=== PATIENT | female | born 2000 | race Caucasian/White ===

== ENCOUNTER 2019-01-15 04:29 | Inpatient (IN) ==
[2019-01-15] MEDS ORDERED: 0.9 % Sodium Chloride 1,000 ML ONE (04:44)
[2019-01-15] MEDS ORDERED: Ondansetron 4 MG/2 ML VIAL IVP ONE (04:45)
[2019-01-15] MEDS: 0.9 % Sodium Chloride 1,000 ML IVC SCH ×2 (04:47→05:25)
[2019-01-15 05:17] LABS: VBG HCO3 6 mEq/L (21-27); VBG PCO2 21 mmHg (41-51); VBG PH 7.06 pH Units (7.32-7.42); VBG PO2 58 mmHg (25-50)
[2019-01-15] MEDS ORDERED: 0.9 % Sodium Chloride 1,000 ML IVC ONE (05:48)
[2019-01-15 05:57] LABS: Alanine Aminotransferase 8 Units/L (7-52); Albumin 4.5 g/dL (3.5-5.7); Albumin/Globulin Ratio 1.4 (1.1-2.2); Alkaline Phosphatase 105 Units/L (34-104); Aspartate Amino Transferase 8 Units/L (13-39); BUN/Creatinine Ratio 15 (6-26); Bilirubin,Total 0.3 mg/dL (0.3-1.0); Blood Urea Nitrogen 14 mg/dL (6-20); Calcium 8.8 mg/dL (8.6-10.3); Carbon Dioxide 7 mEq/L (23-29); Chloride 103 mEq/L (98-107); Globulin 3.2 g/dL (2.4-3.5); Glucose 189 mg/dL (70-105); Osmolality,Calculated 284 (280-300); Potassium 3.2 mEq/L (3.5-5.1); Sodium 134 mEq/L (136-145); Total Protein 7.7 g/dL (6.4-8.9); Troponin I < 0.03 ng/mL (< 0.04); eGFR For African Americans > 60; eGFR For Non-African Americans > 60
[2019-01-15] MEDS ORDERED: Potassium Chloride 20 MEQ, Lidocaine 1% 2 ML in 0.9 % Sodium Chloride 250 ML IVPB ONE ×2 (06:04→07:53)
[2019-01-15 06:05] LABS: Basophils # 0.1 K/mcL (0.0-0.2); Basophils % 0.5 %; Hematocrit 39.5 % (35.3-44.9); Immature Granulocytes % 1.7 % (0-4); Lymphocytes # 1.4 K/mcL (0.6-4.6); Lymphocytes % 8.8 %; Mean Corpuscular HGB Conc 32.9 g/dL (31.6-35.5); Mean Corpuscular Volume 91.2 fL (83.0-100.0); Mean Platelet Volume 10.9 fL (9.4-12.4); Monocytes # 1.4 K/mcL (0.0-1.3); Monocytes % 8.7 %; Platelet Count 379 K/mcL (140-400); Red Blood Count 4.33 M/mcL (3.82-4.97); Red Cell Distribution Width 13.1 % (11.5-14.5); Segmented Neutrophils % 80.3 %; White Blood Count 16.2 K/mcL (4.3-11.1)
[2019-01-15 06:11] LABS: Thyroid Stimulating Hormone 0.416 mcIU/mL (0.340-5.600)
[2019-01-15 06:41] LABS: Bilirubin,Urine Negative (Negative); Blood,Urine Small (Negative); Clarity,Urine Clear (Clear); Color,Urine Yellow (Yellow); Glucose,Urine (UA) >=1000 mg/dL (Normal); Ketones,Urine >=160 mg/dL (Negative); Leukocyte Esterase,Urine Negative (Negative); Nitrite,Urine Negative (Negative); Protein,Urine 100 mg/dL (Neg-Trace); Specific Gravity,Urine 1.029 (1.010-1.025); Urobilinogen,Urine Normal (Normal)
[2019-01-15 06:44] LABS: Bacteria,Urine Few per hpf (None-Few); Hyaline Casts,Urine None Seen per lpf (None-Few); RBC,Urine 0-3 per hpf (0-3); Squamous Epithelial Cell,Urine Many per lpf (None-Few); WBC,Urine 15-30 per hpf (0-3)
[2019-01-15 06:47] LABS: Amphetamine Screen,Urine Negative ng/mL (Cutoff=1000); Barbiturate Screen,Urine Negative ng/mL (Cutoff=200); Benzodiazepines Screen,Urine Negative ng/mL (Cutoff=300)
[2019-01-15] MEDS ORDERED: Isovue-370 500 ML BOTTLE IVP ONE (06:47)
[2019-01-15 06:48] LABS: Cannabinoid Screen,Urine Negative ng/mL (Cutoff = 50); Cocaine Screen,Urine Negative ng/mL (Cutoff= 300); Opiate Screen,Urine Negative ng/mL (Cutoff=300); Phencyclidine Screen,Urine Negative ng/mL (Cutoff=25)
[2019-01-15] MEDS ORDERED: Piperacillin/Tazobactam 3.375 GM in 0.9 % Sodium Chloride Mini Bag 100 ML IVPB ONE (08:18)
[2019-01-15] MEDS: 0.9 % Sodium Chloride w KCl 20 MEQ/1,000 ML MLS IVC SCH ×2 (09:51→19:31)
[2019-01-15] MEDS ORDERED: *HR* Dextrose 50 % in Water (Syg) 50 ML SYRINGE IVP PRN ×3 (10:05→17:41)
[2019-01-15] MEDS ORDERED: Insulin Human Regular 100 UNIT in 0.9 % Sodium Chloride 100 ML IVC SCH (10:15)
[2019-01-15] MEDS ORDERED: Insulin Regular, Human 100 UNIT/ML IV PRN (10:32)
[2019-01-15] MEDS: D5% in 0.9% NACL w KCl 20 MEQ/1,000 ML MLS IVC SCH ×2 (10:45→19:31)
[2019-01-15 11:17] LABS: BUN/Creatinine Ratio 13 (6-26); Blood Urea Nitrogen 10 mg/dL (6-20); Calcium 8.2 mg/dL (8.6-10.3); Carbon Dioxide 13 mEq/L (23-29); Chloride 112 mEq/L (98-107); Glucose 193 mg/dL (70-105); Osmolality,Calculated 280 (280-300); Potassium 3.4 mEq/L (3.5-5.1); Sodium 133 mEq/L (136-145); eGFR For African Americans > 60; eGFR For Non-African Americans > 60
[2019-01-15 11:57] LABS: Estimated Average Glucose 292 mg/dl
[2019-01-15 15:05] LABS: VBG HCO3 15 mEq/L (21-27); VBG Ionized Calcium 1.21 mmol/L (1.15-1.35); VBG PCO2 32 mmHg (41-51); VBG PH 7.29 pH Units (7.32-7.42); VBG PO2 192 mmHg (25-50)
[2019-01-15 15:25] LABS: BUN/Creatinine Ratio 11 (6-26); Blood Urea Nitrogen 8 mg/dL (6-20); Calcium 8.5 mg/dL (8.6-10.3); Carbon Dioxide 15 mEq/L (23-29); Chloride 112 mEq/L (98-107); Glucose 154 mg/dL (70-105); Osmolality,Calculated 281 (280-300); Potassium 3.3 mEq/L (3.5-5.1); Sodium 135 mEq/L (136-145); eGFR For African Americans > 60; eGFR For Non-African Americans > 60
[2019-01-15] MEDS: D5% in 0.45% NACL w KCl 20 MEQ/1,000 ML MLS IVC SCH ×2 (16:29→23:16)
[2019-01-15] MEDS: Pantoprazole 40 MG VIAL IVP SCH (16:29)
[2019-01-15] MEDS ORDERED: Dextrose Gel 15 GM/37.5 ML TUBE PO PRN (17:41)
[2019-01-15] MEDS ORDERED: D5% in Water 1,000 ML IVC PRN (17:41)
[2019-01-15 19:10] LABS: BUN/Creatinine Ratio 12 (6-26); Blood Urea Nitrogen 8 mg/dL (6-20); Calcium 8.6 mg/dL (8.6-10.3); Carbon Dioxide 15 mEq/L (23-29); Chloride 110 mEq/L (98-107); Glucose 197 mg/dL (70-105); Osmolality,Calculated 284 (280-300); Potassium 3.7 mEq/L (3.5-5.1); Sodium 135 mEq/L (136-145); eGFR For African Americans > 60; eGFR For Non-African Americans > 60
[2019-01-15] MEDS: Insulin LISPRO 300 UNITS/3 ML VIAL SQ SCH (20:47)
[2019-01-15] MEDS ORDERED: Insulin DETEMIR 100 UNIT/ML X5UNITS SQ SCH (21:00)
[2019-01-15 23:17] LABS: BUN/Creatinine Ratio 12 (6-26); Blood Urea Nitrogen 8 mg/dL (6-20); Calcium 8.9 mg/dL (8.6-10.3); Carbon Dioxide 13 mEq/L (23-29); Chloride 113 mEq/L (98-107); Glucose 150 mg/dL (70-105); Osmolality,Calculated 281 (280-300); Potassium 3.5 mEq/L (3.5-5.1); Sodium 135 mEq/L (136-145); eGFR For African Americans > 60; eGFR For Non-African Americans > 60
[2019-01-16] MEDS: D5% in 0.45% NACL w KCl 20 MEQ/1,000 ML MLS IVC SCH (03:25)
[2019-01-16] MEDS: D5% in 0.9% NACL w KCl 20 MEQ/1,000 ML MLS IVC SCH (03:25)
[2019-01-16] MEDS: 0.9 % Sodium Chloride w KCl 20 MEQ/1,000 ML MLS IVC SCH (03:25)
[2019-01-16 05:19] LABS: Basophils # 0.1 K/mcL (0.0-0.2); Basophils % 0.6 %; Eosinophils # 0.2 K/mcL (0.0-0.6); Eosinophils % 2.3 %; Hematocrit 34.9 % (35.3-44.9); Hemoglobin 11.8 g/dL (11.5-15.4); Immature Granulocytes % 0.9 % (0-4); Lymphocytes # 2.7 K/mcL (0.6-4.6); Lymphocytes % 26.4 %; Mean Corpuscular HGB Conc 33.8 g/dL (31.6-35.5); Mean Corpuscular Hemoglobin 29.9 pg (28.0-33.3); Mean Corpuscular Volume 88.6 fL (83.0-100.0); Mean Platelet Volume 10.2 fL (9.4-12.4); Monocytes % 10.1 %; Neutrophils # 6.1 K/mcL (1.6-8.9); Platelet Count 355 K/mcL (140-400); Red Blood Count 3.94 M/mcL (3.82-4.97); Red Cell Distribution Width 13.6 % (11.5-14.5); Segmented Neutrophils % 59.7 %; White Blood Count 10.2 K/mcL (4.3-11.1)
[2019-01-16 05:38] LABS: BUN/Creatinine Ratio 11 (6-26); Blood Urea Nitrogen 7 mg/dL (6-20); Calcium 8.7 mg/dL (8.6-10.3); Carbon Dioxide 18 mEq/L (23-29); Chloride 108 mEq/L (98-107); Glucose 145 mg/dL (70-105); Osmolality,Calculated 287 (280-300); Potassium 3.1 mEq/L (3.5-5.1); Sodium 138 mEq/L (136-145); eGFR For African Americans > 60; eGFR For Non-African Americans > 60
[2019-01-16] MEDS: Insulin LISPRO 300 UNITS/3 ML VIAL SQ SCH ×3 (07:34→21:28)
[2019-01-16] MEDS ORDERED: Insulin DETEMIR 100 UNIT/ML X5UNITS SQ ONE (09:51)
[2019-01-16] MEDS: Pantoprazole 40 MG VIAL IVP SCH (09:57)
[2019-01-16] MEDS ORDERED: Dextrose Gel 15 GM/37.5 ML TUBE PO PRN ×4 (11:02→13:15)
[2019-01-16] MEDS ORDERED: *HR* Dextrose 50 % in Water (Syg) 50 ML SYRINGE IVP PRN ×2 (11:02→13:15)
[2019-01-16] MEDS ORDERED: D5% in Water 1,000 ML IVC PRN ×2 (11:02→13:15)
[2019-01-16] MEDS ORDERED: Insulin LISPRO 300 UNITS/3 ML VIAL SQ SCH ×2 (11:30→21:00)
[2019-01-16] MEDS ORDERED: Insulin DETEMIR 100 UNIT/ML X5UNITS SQ SCH ×2 (21:00)
[2019-01-17] MEDS: Insulin LISPRO 300 UNITS/3 ML VIAL SQ SCH ×4 (09:00→20:28)
[2019-01-17 10:47] LABS: BUN/Creatinine Ratio 12 (6-26); Blood Urea Nitrogen 10 mg/dL (6-20); Calcium 8.9 mg/dL (8.6-10.3); Carbon Dioxide 22 mEq/L (23-29); Chloride 105 mEq/L (98-107); Glucose 323 mg/dL (70-105); Osmolality,Calculated 294 (280-300); Potassium 3.4 mEq/L (3.5-5.1); Sodium 136 mEq/L (136-145); eGFR For African Americans > 60; eGFR For Non-African Americans > 60
[2019-01-17] MEDS ORDERED: 0.9 % Sodium Chloride 1,000 ML IVC ONE (11:05)
[2019-01-17] MEDS ORDERED: 0.9 % Sodium Chloride 500 ML IVC ONE (15:18)
[2019-01-17] MEDS ORDERED: *HR* Metoprolol 5 MG/5 ML VIAL IVP ONE (16:45)
[2019-01-17] MEDS ORDERED: Insulin DETEMIR 100 UNIT/ML X5UNITS SQ SCH ×2 (21:00)
[2019-01-18 06:58] LABS: BUN/Creatinine Ratio 18 (6-26); Blood Urea Nitrogen 9 mg/dL (6-20); Calcium 8.7 mg/dL (8.6-10.3); Carbon Dioxide 28 mEq/L (23-29); Chloride 106 mEq/L (98-107); Glucose 134 mg/dL (70-105); Magnesium 1.9 mg/dL (1.6-2.6); Osmolality,Calculated 293 (280-300); Potassium 3.1 mEq/L (3.5-5.1); Sodium 141 mEq/L (136-145); eGFR For African Americans > 60; eGFR For Non-African Americans > 60
[2019-01-18] MEDS: Insulin LISPRO 300 UNITS/3 ML VIAL SQ SCH ×2 (07:21→12:28)
[2019-01-18 11:00] VITALS: BP 133/77
[2019-01-18] MEDS ORDERED: FLU Vac QV 19-20 (6Month+)/PF 0.5 ML SYRINGE IM ONE (11:40)
== END 2019-01-18 12:40 | disposition home or self-care (01) | DRG 638 ==
LOC: EMEROOARM 04:29 → SUATTDRO 13:18 → ICNU 13:18 → 3ANU 01-16 13:07
PROVIDERS: ADMIT Internal Medicine; ATTEND Student in an Organized Health Care Education/Training Program

== ENCOUNTER 2019-03-17 08:28 | Inpatient (IN) ==
[2019-03-17] MEDS ORDERED: Insulin Human Regular 10 UNIT in 0.9 % Sodium Chloride 10 ML IV ONE (08:49)
[2019-03-17] MEDS: 0.9 % Sodium Chloride 1,000 ML IVC SCH ×4 (09:15→19:18)
[2019-03-17 09:35] LABS: Bilirubin,Urine Negative (Negative); Blood,Urine Moderate (Negative); Clarity,Urine Clear (Clear); Color,Urine Yellow (Yellow); Glucose,Urine (UA) >=1000 mg/dL (Normal); Ketones,Urine >=160 mg/dL (Negative); Leukocyte Esterase,Urine Negative (Negative); Nitrite,Urine Negative (Negative); Protein,Urine 30 mg/dL (Neg-Trace); Specific Gravity,Urine 1.027 (1.010-1.025); Urobilinogen,Urine Normal (Normal)
[2019-03-17 09:37] LABS: Bacteria,Urine Few per hpf (None-Few); Hyaline Casts,Urine None Seen per lpf (None-Few); RBC,Urine 0-3 per hpf (0-3); Squamous Epithelial Cell,Urine Many per lpf (None-Few)
[2019-03-17 09:39] LABS: Hemoglobin 13.4 g/dL (11.5-15.4); Mean Corpuscular HGB Conc 30.5 g/dL (31.6-35.5); Mean Corpuscular Hemoglobin 30.7 pg (28.0-33.3); Mean Corpuscular Volume 100.7 fL (83.0-100.0); Mean Platelet Volume 10.3 fL (9.4-12.4); Platelet Count 613 K/mcL (140-400); Red Blood Count 4.37 M/mcL (3.82-4.97); Red Cell Distribution Width 11.7 % (11.5-14.5); White Blood Count 26.8 K/mcL (4.3-11.1)
[2019-03-17 09:43] LABS: INR 1.1; Prothrombin Time 12.2 Seconds (9.4-12.1)
[2019-03-17 09:46] LABS: Activated Partial Thrombo Time 34.3 Seconds (26.0-36.0)
[2019-03-17 09:58] LABS: Lymphocytes # 2.1 K/mcL (0.6-4.6); Monocytes # 0.5 K/mcL (0.0-1.3); Neutrophils # 24.1 K/mcL (1.6-8.9)
[2019-03-17 09:59] LABS: Platelet Estimate Increased (Normal)
[2019-03-17 10:01] LABS: Alanine Aminotransferase 12 Units/L (7-52); Albumin 4.7 g/dL (3.5-5.7); Albumin/Globulin Ratio 1.5 (1.1-2.2); Alkaline Phosphatase 114 Units/L (34-104); Aspartate Amino Transferase 9 Units/L (13-39); BUN/Creatinine Ratio 15 (6-26); Bilirubin,Total 0.2 mg/dL (0.3-1.0); Blood Urea Nitrogen 14 mg/dL (6-20); Carbon Dioxide 4 mEq/L (23-29); Chloride 106 mEq/L (98-107); Globulin 3.2 g/dL (2.4-3.5); Glucose 524 mg/dL (70-105); Lipase 12 Units/L (11-82); Osmolality,Calculated 310 (280-300); Potassium 4.9 mEq/L (3.5-5.1); Salicylate < 2.5 mg/dL (15.0-30.0); Sodium 138 mEq/L (136-145); Total Protein 7.9 g/dL (6.4-8.9); eGFR For African Americans > 60; eGFR For Non-African Americans > 60
[2019-03-17] MEDS ORDERED: *HR* Dextrose 50 % in Water (Syg) 50 ML SYRINGE IVP PRN ×2 (10:08→11:11)
[2019-03-17] MEDS ORDERED: 0.9 % Sodium Chloride 1,000 ML IVC SCH (10:15)
[2019-03-17] MEDS: Insulin Human Regular 100 UNIT in 0.9 % Sodium Chloride 100 ML IVC SCH ×2 (10:41→19:30)
[2019-03-17 10:51] LABS: ABG PCO2 < 13 mmHg (35-45); ABG PH 6.93 pH Units (7.32-7.45); ABG PO2 147 mmHg (85-104)
[2019-03-17] MEDS ORDERED: Naloxone 0.4 MG/ML INJ IVP PRN (11:11)
[2019-03-17] MEDS ORDERED: Insulin Regular, Human 100 UNIT/ML IV PRN (11:11)
[2019-03-17] MEDS ORDERED: Acetaminophen 650 MG RECTAL SUPP RC PRN (11:11)
[2019-03-17] MEDS ORDERED: Ondansetron 4 MG/2 ML VIAL IVP PRN (11:11)
[2019-03-17] MEDS ORDERED: D5% in 0.45% NACL w KCl 20 MEQ/1,000 ML MLS IVC PRN (11:11)
[2019-03-17] MEDS: 0.45 % Sodium Chloride w/KCl 20 MEQ/1,000 ML MLS IVC SCH ×5 (12:43→23:06)
[2019-03-17 12:54] LABS: VBG HCO3 5 mEq/L (21-27); VBG PCO2 18 mmHg (41-51); VBG PH 7.08 pH Units (7.32-7.42); VBG PO2 208 mmHg (25-50)
[2019-03-17 13:27] LABS: Alanine Aminotransferase 11 Units/L (7-52); Albumin 4.4 g/dL (3.5-5.7); Albumin/Globulin Ratio 1.5 (1.1-2.2); Alkaline Phosphatase 99 Units/L (34-104); Aspartate Amino Transferase 11 Units/L (13-39); BUN/Creatinine Ratio 13 (6-26); Bilirubin,Total 0.2 mg/dL (0.3-1.0); Blood Urea Nitrogen 11 mg/dL (6-20); Calcium 8.6 mg/dL (8.6-10.3); Carbon Dioxide 5 mEq/L (23-29); Chloride 114 mEq/L (98-107); Glucose 216 mg/dL (70-105); Magnesium 1.9 mg/dL (1.6-2.6); Osmolality,Calculated 304 (280-300); Phosphorous 1.7 mg/dL (2.7-4.5); Potassium 4.1 mEq/L (3.5-5.1); Sodium 144 mEq/L (136-145); Total Protein 7.4 g/dL (6.4-8.9); eGFR For African Americans > 60; eGFR For Non-African Americans > 60
[2019-03-17] MEDS ORDERED: Insulin Human Regular 100 UNIT in 0.9 % Sodium Chloride 100 ML IVC SCH (13:30)
[2019-03-17 15:07] LABS: Amphetamine Screen,Urine Negative ng/mL (Cutoff=1000); Barbiturate Screen,Urine Negative ng/mL (Cutoff=200); Benzodiazepines Screen,Urine Negative ng/mL (Cutoff=200); Cannabinoid Screen,Urine Negative ng/mL (Cutoff = 50); Cocaine Screen,Urine Negative ng/mL (Cutoff= 300); Opiate Screen,Urine Negative ng/mL (Cutoff=300); Phencyclidine Screen,Urine Negative ng/mL (Cutoff=25)
[2019-03-17 15:58] LABS: Thyroid Stimulating Hormone 0.144 mcIU/mL (0.340-5.600)
[2019-03-17 17:04] LABS: Alanine Aminotransferase 9 Units/L (7-52); Albumin/Globulin Ratio 1.4 (1.1-2.2); Alkaline Phosphatase 83 Units/L (34-104); Aspartate Amino Transferase 14 Units/L (13-39); BUN/Creatinine Ratio 13 (6-26); Bilirubin,Total 0.3 mg/dL (0.3-1.0); Blood Urea Nitrogen 10 mg/dL (6-20); Calcium 9.3 mg/dL (8.6-10.3); Carbon Dioxide 8 mEq/L (23-29); Chloride 121 mEq/L (98-107); Globulin 2.8 g/dL (2.4-3.5); Glucose 198 mg/dL (70-105); Magnesium 1.8 mg/dL (1.6-2.6); Osmolality,Calculated 297 (280-300); Phosphorous 1.6 mg/dL (2.7-4.5); Potassium 4.2 mEq/L (3.5-5.1); Sodium 141 mEq/L (136-145); Total Protein 6.8 g/dL (6.4-8.9); eGFR For African Americans > 60; eGFR For Non-African Americans > 60
[2019-03-17] MEDS: Famotidine 20 MG/2 ML VIAL IVP SCH (17:33)
[2019-03-17] MEDS: Potassium Chloride 20 MEQ in D5% in Lactated Ringers 1,000 ML IVC SCH ×2 (18:04→23:04)
[2019-03-17 21:36] LABS: Alanine Aminotransferase 8 Units/L (7-52); Albumin 3.8 g/dL (3.5-5.7); Albumin/Globulin Ratio 1.5 (1.1-2.2); Alkaline Phosphatase 81 Units/L (34-104); Aspartate Amino Transferase 7 Units/L (13-39); BUN/Creatinine Ratio 11 (6-26); Bilirubin,Total 0.3 mg/dL (0.3-1.0); Blood Urea Nitrogen 8 mg/dL (6-20); Calcium 8.6 mg/dL (8.6-10.3); Carbon Dioxide 13 mEq/L (23-29); Chloride 119 mEq/L (98-107); Globulin 2.5 g/dL (2.4-3.5); Glucose 101 mg/dL (70-105); Osmolality,Calculated 294 (280-300); Phosphorous < 1.0 mg/dL (2.7-4.5); Potassium 3.1 mEq/L (3.5-5.1); Sodium 143 mEq/L (136-145); Total Protein 6.3 g/dL (6.4-8.9); eGFR For African Americans > 60; eGFR For Non-African Americans > 60
[2019-03-17] MEDS: *HR* Heparin 5,000 UNIT/ML VIAL SQ SCH (23:04)
[2019-03-18] MEDS: 0.45 % Sodium Chloride w/KCl 20 MEQ/1,000 ML MLS IVC SCH ×6 (01:27→16:38)
[2019-03-18 02:14] LABS: Alanine Aminotransferase 8 Units/L (7-52); Albumin 3.5 g/dL (3.5-5.7); Albumin/Globulin Ratio 1.4 (1.1-2.2); Alkaline Phosphatase 72 Units/L (34-104); Aspartate Amino Transferase 8 Units/L (13-39); BUN/Creatinine Ratio 9 (6-26); Bilirubin,Total 0.3 mg/dL (0.3-1.0); Blood Urea Nitrogen 7 mg/dL (6-20); Calcium 8.7 mg/dL (8.6-10.3); Carbon Dioxide 12 mEq/L (23-29); Chloride 118 mEq/L (98-107); Globulin 2.5 g/dL (2.4-3.5); Glucose 176 mg/dL (70-105); Magnesium 1.7 mg/dL (1.6-2.6); Osmolality,Calculated 290 (280-300); Phosphorous 2.5 mg/dL (2.7-4.5); Potassium 3.5 mEq/L (3.5-5.1); Sodium 139 mEq/L (136-145); eGFR For African Americans > 60; eGFR For Non-African Americans > 60
[2019-03-18] MEDS: Potassium Chloride 20 MEQ in D5% in Lactated Ringers 1,000 ML IVC SCH ×3 (03:56→13:54)
[2019-03-18] MEDS: *HR* Heparin 5,000 UNIT/ML VIAL SQ SCH ×3 (05:06→20:12)
[2019-03-18] MEDS: Famotidine 20 MG/2 ML VIAL IVP SCH (05:06)
[2019-03-18 05:19] LABS: VBG HCO3 16 mEq/L (21-27); VBG PCO2 33 mmHg (41-51); VBG PO2 119 mmHg (25-50)
[2019-03-18 06:14] LABS: Basophils # 0.1 K/mcL (0.0-0.2); Basophils % 0.4 %; Eosinophils # 0.2 K/mcL (0.0-0.6); Eosinophils % 1.3 %; Hematocrit 34.3 % (35.3-44.9); Hemoglobin 11.4 g/dL (11.5-15.4); Immature Granulocytes % 0.5 % (0-4); Lymphocytes # 1.8 K/mcL (0.6-4.6); Lymphocytes % 10.8 %; Mean Corpuscular HGB Conc 33.2 g/dL (31.6-35.5); Mean Corpuscular Hemoglobin 30.6 pg (28.0-33.3); Mean Platelet Volume 9.6 fL (9.4-12.4); Monocytes # 1.3 K/mcL (0.0-1.3); Monocytes % 7.8 %; Neutrophils # 12.9 K/mcL (1.6-8.9); Platelet Count 344 K/mcL (140-400); Red Blood Count 3.73 M/mcL (3.82-4.97); Red Cell Distribution Width 11.9 % (11.5-14.5); Segmented Neutrophils % 79.2 %; White Blood Count 16.3 K/mcL (4.3-11.1)
[2019-03-18 06:37] LABS: Alanine Aminotransferase 8 Units/L (7-52); Albumin 3.5 g/dL (3.5-5.7); Albumin/Globulin Ratio 1.4 (1.1-2.2); Alkaline Phosphatase 78 Units/L (34-104); Aspartate Amino Transferase 8 Units/L (13-39); BUN/Creatinine Ratio 8 (6-26); Bilirubin,Total 0.4 mg/dL (0.3-1.0); Blood Urea Nitrogen 5 mg/dL (6-20); Calcium 8.5 mg/dL (8.6-10.3); Carbon Dioxide 15 mEq/L (23-29); Chloride 112 mEq/L (98-107); Globulin 2.5 g/dL (2.4-3.5); Glucose 195 mg/dL (70-105); Magnesium 1.7 mg/dL (1.6-2.6); Osmolality,Calculated 295 (280-300); Phosphorous 1.1 mg/dL (2.7-4.5); Potassium 3.1 mEq/L (3.5-5.1); Sodium 141 mEq/L (136-145); eGFR For African Americans > 60; eGFR For Non-African Americans > 60
[2019-03-18] MEDS ORDERED: Calcium Gluconate 1gm/50mL 1 GM/50 ML BAG IVPB PRN (06:54)
[2019-03-18] MEDS ORDERED: Potassium Phosphate 44 MEQ in 0.9 % Sodium Chloride 250 ML IVPB PRN (06:54)
[2019-03-18 10:30] LABS: Triiodothyronine (T3) Free 3.37 pg/mL (2.50-3.90)
[2019-03-18 12:14] LABS: VBG HCO3 19 mEq/L (21-27); VBG PCO2 37 mmHg (41-51); VBG PH 7.32 pH Units (7.32-7.42); VBG PO2 129 mmHg (25-50)
[2019-03-18 12:37] LABS: Alanine Aminotransferase 7 Units/L (7-52); Albumin 3.3 g/dL (3.5-5.7); Albumin/Globulin Ratio 1.4 (1.1-2.2); Alkaline Phosphatase 72 Units/L (34-104); Aspartate Amino Transferase 8 Units/L (13-39); BUN/Creatinine Ratio 6 (6-26); Bilirubin,Total 0.4 mg/dL (0.3-1.0); Blood Urea Nitrogen 4 mg/dL (6-20); Calcium 8.8 mg/dL (8.6-10.3); Carbon Dioxide 18 mEq/L (23-29); Chloride 114 mEq/L (98-107); Globulin 2.3 g/dL (2.4-3.5); Glucose 122 mg/dL (70-105); Magnesium 1.6 mg/dL (1.6-2.6); Osmolality,Calculated 290 (280-300); Phosphorous 2.1 mg/dL (2.7-4.5); Potassium 3.3 mEq/L (3.5-5.1); Sodium 141 mEq/L (136-145); Total Protein 5.6 g/dL (6.4-8.9); eGFR For African Americans > 60; eGFR For Non-African Americans > 60
[2019-03-18] MEDS ORDERED: D5% in Water 1,000 ML IVC PRN ×2 (12:58→19:15)
[2019-03-18] MEDS ORDERED: Dextrose Gel 15 GM/37.5 ML TUBE PO PRN ×4 (12:58→19:15)
[2019-03-18] MEDS ORDERED: 0.45 % Sodium Chloride w/KCl 20 MEQ/1,000 ML MLS IVC SCH (13:45)
[2019-03-18] MEDS ORDERED: Insulin DETEMIR 100 UNIT/ML X5UNITS SQ SCH (14:00)
[2019-03-18] MEDS ORDERED: Insulin LISPRO 300 UNITS/3 ML VIAL SQ SCH ×2 (16:30→21:00)
[2019-03-18 18:50] LABS: Alanine Aminotransferase 5 Units/L (7-52); Albumin 3.3 g/dL (3.5-5.7); Albumin/Globulin Ratio 1.3 (1.1-2.2); Alkaline Phosphatase 74 Units/L (34-104); Aspartate Amino Transferase 8 Units/L (13-39); BUN/Creatinine Ratio 5 (6-26); Bilirubin,Total 0.3 mg/dL (0.3-1.0); Blood Urea Nitrogen 4 mg/dL (6-20); Calcium 8.5 mg/dL (8.6-10.3); Carbon Dioxide 15 mEq/L (23-29); Chloride 107 mEq/L (98-107); Globulin 2.5 g/dL (2.4-3.5); Glucose 327 mg/dL (70-105); Osmolality,Calculated 288 (280-300); Potassium 3.5 mEq/L (3.5-5.1); Sodium 134 mEq/L (136-145); Total Protein 5.8 g/dL (6.4-8.9); eGFR For African Americans > 60; eGFR For Non-African Americans > 60
[2019-03-18 18:51] LABS: Alanine Aminotransferase 7 Units/L (7-52); Albumin 3.4 g/dL (3.5-5.7); Albumin/Globulin Ratio 1.4 (1.1-2.2); Alkaline Phosphatase 76 Units/L (34-104); Aspartate Amino Transferase 8 Units/L (13-39); BUN/Creatinine Ratio 5 (6-26); Bilirubin,Total 0.4 mg/dL (0.3-1.0); Blood Urea Nitrogen 4 mg/dL (6-20); Calcium 8.7 mg/dL (8.6-10.3); Carbon Dioxide 17 mEq/L (23-29); Chloride 107 mEq/L (98-107); Globulin 2.5 g/dL (2.4-3.5); Glucose 328 mg/dL (70-105); Magnesium 1.4 mg/dL (1.6-2.6); Osmolality,Calculated 292 (280-300); Phosphorous 1.5 mg/dL (2.7-4.5); Potassium 3.5 mEq/L (3.5-5.1); Sodium 136 mEq/L (136-145); Total Protein 5.9 g/dL (6.4-8.9); eGFR For African Americans > 60; eGFR For Non-African Americans > 60
[2019-03-18] MEDS ORDERED: Ondansetron 4 MG/2 ML VIAL IVP PRN (19:15)
[2019-03-18] MEDS ORDERED: Naloxone 0.4 MG/ML INJ IVP PRN (19:15)
[2019-03-18] MEDS ORDERED: *HR* Dextrose 50 % in Water (Syg) 50 ML SYRINGE IVP PRN (19:15)
[2019-03-18] MEDS ORDERED: Acetaminophen 650 MG RECTAL SUPP RC PRN (19:15)
[2019-03-18] MEDS: Insulin LISPRO 300 UNITS/3 ML VIAL SQ SCH (20:11)
[2019-03-19] MEDS: 0.45 % Sodium Chloride w/KCl 20 MEQ/1,000 ML MLS IVC SCH ×3 (01:03→22:44)
[2019-03-19] MEDS: *HR* Heparin 5,000 UNIT/ML VIAL SQ SCH ×3 (05:59→21:37)
[2019-03-19] MEDS ORDERED: Famotidine 20 MG/2 ML VIAL IVP SCH (06:00)
[2019-03-19] MEDS ORDERED: Insulin DETEMIR 100 UNIT/ML X5UNITS SQ SCH (09:00)
[2019-03-19 09:04] LABS: Basophils % 0.4 %; Eosinophils # 0.4 K/mcL (0.0-0.6); Eosinophils % 5.2 %; Hematocrit 33.4 % (35.3-44.9); Hemoglobin 11.7 g/dL (11.5-15.4); Immature Granulocytes % 0.3 % (0-4); Mean Corpuscular Hemoglobin 31.2 pg (28.0-33.3); Mean Corpuscular Volume 89.1 fL (83.0-100.0); Mean Platelet Volume 10.2 fL (9.4-12.4); Monocytes # 0.6 K/mcL (0.0-1.3); Monocytes % 8.6 %; Platelet Count 309 K/mcL (140-400); Red Blood Count 3.75 M/mcL (3.82-4.97); Red Cell Distribution Width 11.9 % (11.5-14.5); Segmented Neutrophils % 46.5 %
[2019-03-19 09:05] LABS: Lymphocytes # 2.7 K/mcL (0.6-4.6); Neutrophils # 3.2 K/mcL (1.6-8.9); White Blood Count 6.8 K/mcL (4.3-11.1)
[2019-03-19 09:27] LABS: Magnesium 1.7 mg/dL (1.6-2.6); Phosphorous 2.5 mg/dL (2.7-4.5)
[2019-03-19 09:28] LABS: Alanine Aminotransferase 6 Units/L (7-52); Albumin 3.2 g/dL (3.5-5.7); Albumin/Globulin Ratio 1.3 (1.1-2.2); Alkaline Phosphatase 69 Units/L (34-104); Aspartate Amino Transferase 7 Units/L (13-39); BUN/Creatinine Ratio 10 (6-26); Bilirubin,Total 0.3 mg/dL (0.3-1.0); Blood Urea Nitrogen 6 mg/dL (6-20); Calcium 8.8 mg/dL (8.6-10.3); Carbon Dioxide 20 mEq/L (23-29); Chloride 109 mEq/L (98-107); Globulin 2.4 g/dL (2.4-3.5); Glucose 320 mg/dL (70-105); Osmolality,Calculated 292 (280-300); Potassium 3.7 mEq/L (3.5-5.1); Sodium 136 mEq/L (136-145); Total Protein 5.6 g/dL (6.4-8.9); eGFR For African Americans > 60; eGFR For Non-African Americans > 60
[2019-03-19] MEDS: Insulin LISPRO 300 UNITS/3 ML VIAL SQ SCH ×4 (10:28→21:21)
[2019-03-19] MEDS ORDERED: Insulin DETEMIR 100 UNIT/ML X5UNITS SQ ONE (11:26)
[2019-03-19] MEDS: Potassium Chloride 20 MEQ in D5% in Lactated Ringers 1,000 ML IVC SCH (13:36)
[2019-03-19] MEDS: Famotidine 20 MG/2 ML VIAL IVP SCH (22:45)
[2019-03-20] MEDS: *HR* Heparin 5,000 UNIT/ML VIAL SQ SCH ×2 (04:45→12:58)
[2019-03-20 07:59] VITALS: BP 104/64
[2019-03-20] MEDS: Insulin LISPRO 300 UNITS/3 ML VIAL SQ SCH ×3 (08:06→16:25)
[2019-03-20] MEDS ORDERED: Insulin DETEMIR 100 UNIT/ML X5UNITS SQ SCH (09:00)
[2019-03-20 09:45] LABS: Eosinophils % 4.7 %; Hematocrit 35.7 % (35.3-44.9); Hemoglobin 12.2 g/dL (11.5-15.4); Immature Granulocytes % 0.3 % (0-4); Lymphocytes % 28.2 %; Mean Corpuscular HGB Conc 34.2 g/dL (31.6-35.5); Mean Corpuscular Hemoglobin 30.3 pg (28.0-33.3); Mean Corpuscular Volume 88.6 fL (83.0-100.0); Monocytes % 8.1 %; Platelet Count 330 K/mcL (140-400); Red Blood Count 4.03 M/mcL (3.82-4.97); Red Cell Distribution Width 11.7 % (11.5-14.5); Segmented Neutrophils % 58.1 %; White Blood Count 6.4 K/mcL (4.3-11.1)
[2019-03-20 09:46] LABS: Basophils % 0.6 %; Eosinophils # 0.3 K/mcL (0.0-0.6); Lymphocytes # 1.8 K/mcL (0.6-4.6); Monocytes # 0.5 K/mcL (0.0-1.3); Neutrophils # 3.7 K/mcL (1.6-8.9)
[2019-03-20 10:04] LABS: BUN/Creatinine Ratio 18 (6-26); Blood Urea Nitrogen 13 mg/dL (6-20); Carbon Dioxide 22 mEq/L (23-29); Chloride 106 mEq/L (98-107); Glucose 360 mg/dL (70-105); Osmolality,Calculated 301 (280-300); Potassium 3.7 mEq/L (3.5-5.1); Sodium 138 mEq/L (136-145); eGFR For African Americans > 60; eGFR For Non-African Americans > 60
== END 2019-03-20 17:29 | disposition home or self-care (01) | DRG 420 ==
LOC: EMEROOARM 08:28 → ICNU 15:25 → SUATTDRO 15:25 → ICNU 15:26 → 3BNU 03-18 18:40
PROVIDERS: ADMIT Pediatrics; ATTEND Internal Medicine

== ENCOUNTER 2019-04-19 06:17 | Inpatient (IN) ==
[2019-04-19 08:04] LABS: ABG PCO2 < 13 mmHg (35-45); ABG PH 7.17 pH Units (7.32-7.45); ABG PO2 127 mmHg (85-104)
[2019-04-19] MEDS ORDERED: 0.9 % Sodium Chloride 1,000 ML IVC ONE ×4 (08:05→16:30)
[2019-04-19] MEDS ORDERED: 0.9 % Sodium Chloride 1,000 ML ONE (08:05)
[2019-04-19 08:09] LABS: Basophils # 0.1 K/mcL (0.0-0.2); Basophils % 0.6 %; Eosinophils % 0.1 %; Hematocrit 48.2 % (35.3-44.9); Hemoglobin 16.7 g/dL (11.5-15.4); Immature Granulocytes % 1.2 % (0-4); Lymphocytes % 12.9 %; Mean Corpuscular HGB Conc 34.6 g/dL (31.6-35.5); Mean Corpuscular Hemoglobin 30.1 pg (28.0-33.3); Mean Platelet Volume 10.3 fL (9.4-12.4); Monocytes % 6.3 %; Neutrophils # 12.3 K/mcL (1.6-8.9); Platelet Count 568 K/mcL (140-400); Red Blood Count 5.54 M/mcL (3.82-4.97); Segmented Neutrophils % 78.9 %; White Blood Count 15.6 K/mcL (4.3-11.1)
[2019-04-19 08:38] LABS: Alanine Aminotransferase 8 Units/L (7-52); Albumin 5.4 g/dL (3.5-5.7); Albumin/Globulin Ratio 1.5 (1.1-2.2); Alkaline Phosphatase 103 Units/L (34-104); Aspartate Amino Transferase 10 Units/L (13-39); BUN/Creatinine Ratio 11 (6-26); Bilirubin,Total 0.3 mg/dL (0.3-1.0); Blood Urea Nitrogen 12 mg/dL (6-20); Calcium 10.1 mg/dL (8.6-10.3); Carbon Dioxide 5 mEq/L (23-29); Chloride 105 mEq/L (98-107); Globulin 3.6 g/dL (2.4-3.5); Glucose 286 mg/dL (70-105); Magnesium 2.3 mg/dL (1.6-2.6); Osmolality,Calculated 290 (280-300); Phosphorous 2.7 mg/dL (2.7-4.5); Potassium 3.7 mEq/L (3.5-5.1); Sodium 135 mEq/L (136-145); eGFR For African Americans > 60; eGFR For Non-African Americans > 60
[2019-04-19] MEDS ORDERED: Promethazine 25 MG in 0.9 % Sodium Chloride 50 ML IVPB ONE (09:00)
[2019-04-19 09:08] LABS: Bilirubin,Urine Negative (Negative); Blood,Urine Large (Negative); Clarity,Urine Cloudy (Clear); Color,Urine Yellow (Yellow); Glucose,Urine (UA) >=1000 mg/dL (Normal); Ketones,Urine >=160 mg/dL (Negative); Leukocyte Esterase,Urine Small (Negative); Nitrite,Urine Negative (Negative); PH,Urine 5.5 pH Units (5.0-8.0); Protein,Urine 100 mg/dL (Neg-Trace); Specific Gravity,Urine 1.027 (1.010-1.025); Urobilinogen,Urine Normal (Normal)
[2019-04-19 09:11] LABS: Bacteria,Urine Few per hpf (None-Few); Hyaline Casts,Urine Few per lpf (None-Few); Squamous Epithelial Cell,Urine Many per lpf (None-Few); WBC,Urine TNTC per hpf (0-3)
[2019-04-19 09:20] LABS: RBC,Urine 0-3 per hpf (0-3)
[2019-04-19] MEDS ORDERED: Insulin Regular, Human 100 UNIT/ML IV PRN ×2 (09:33→11:06)
[2019-04-19] MEDS ORDERED: D5% in 0.45% NACL 1,000 ML IVC PRN (09:33)
[2019-04-19] MEDS ORDERED: *HR* Dextrose 50 % in Water (Syg) 50 ML SYRINGE IVP PRN ×4 (09:33→14:07)
[2019-04-19] MEDS ORDERED: Insulin Regular, Human 100 UNIT/ML IV ONE (09:33)
[2019-04-19] MEDS ORDERED: Ondansetron 4 MG/2 ML VIAL IVP PRN (09:38)
[2019-04-19] MEDS ORDERED: Naloxone 0.4 MG/ML INJ IVP PRN (09:38)
[2019-04-19] MEDS ORDERED: cefTRIAXone 1,000 MG in Water for inj. (sterile) 10 ML IVP SCH (09:40)
[2019-04-19] MEDS ORDERED: 0.9 % Sodium Chloride 1,000 ML IVC SCH (09:45)
[2019-04-19] MEDS ORDERED: Insulin Human Regular 100 UNIT in 0.9 % Sodium Chloride 100 ML IVC SCH ×2 (09:45)
[2019-04-19 10:20] LABS: Amphetamine Screen,Urine Negative ng/mL (Cutoff=1000); Barbiturate Screen,Urine Negative ng/mL (Cutoff=200); Benzodiazepines Screen,Urine Negative ng/mL (Cutoff=200); Cannabinoid Screen,Urine Negative ng/mL (Cutoff = 50); Cocaine Screen,Urine Negative ng/mL (Cutoff= 300); Opiate Screen,Urine Negative ng/mL (Cutoff=300); Phencyclidine Screen,Urine Negative ng/mL (Cutoff=25)
[2019-04-19 12:09] LABS: BUN/Creatinine Ratio 9 (6-26); Blood Urea Nitrogen 8 mg/dL (6-20); Calcium 7.9 mg/dL (8.6-10.3); Carbon Dioxide < 4 mEq/L (23-29); Chloride 115 mEq/L (98-107); Glucose 195 mg/dL (70-105); Osmolality,Calculated 290 (280-300); Sodium 138 mEq/L (136-145); eGFR For African Americans > 60; eGFR For Non-African Americans > 60
[2019-04-19] MEDS ORDERED: Sodium Bicarbonate 50 MEQ in 0.45 % Sodium Chloride 1,000 ML IVC SCH (12:30)
[2019-04-19] MEDS: 0.45 % Sodium Chloride w/KCl 20 MEQ/1,000 ML MLS IVC SCH ×4 (14:30→22:52)
[2019-04-19] MEDS: D5% in 0.45% NACL w KCl 20 MEQ/1,000 ML MLS IVC PRN ×3 (14:30→22:46)
[2019-04-19 15:54] LABS: ABG PCO2 < 13 mmHg (35-45); ABG PO2 131 mmHg (85-104)
[2019-04-19] MEDS: Insulin Human Regular 100 UNIT in 0.9 % Sodium Chloride 100 ML IVC SCH (16:19)
[2019-04-19] MEDS ORDERED: Sodium Bicarbonate 50 MEQ/50 ML VIAL IVP ONE (16:30)
[2019-04-19 17:36] LABS: BUN/Creatinine Ratio 7 (6-26); Blood Urea Nitrogen 6 mg/dL (6-20); Calcium 8.3 mg/dL (8.6-10.3); Carbon Dioxide < 4 mEq/L (23-29); Chloride 109 mEq/L (98-107); Glucose 265 mg/dL (70-105); Osmolality,Calculated 285 (280-300); Potassium 3.6 mEq/L (3.5-5.1); Sodium 134 mEq/L (136-145); eGFR For African Americans > 60; eGFR For Non-African Americans > 60
[2019-04-19 20:00] LABS: BUN/Creatinine Ratio 6 (6-26); Blood Urea Nitrogen 5 mg/dL (6-20); Calcium 8.2 mg/dL (8.6-10.3); Carbon Dioxide 6 mEq/L (23-29); Chloride 114 mEq/L (98-107); Glucose 181 mg/dL (70-105); Osmolality,Calculated 284 (280-300); Potassium 3.2 mEq/L (3.5-5.1); Sodium 136 mEq/L (136-145); eGFR For African Americans > 60; eGFR For Non-African Americans > 60
[2019-04-20] MEDS: 0.45 % Sodium Chloride w/KCl 20 MEQ/1,000 ML MLS IVC SCH (00:06)
[2019-04-20] MEDS: Insulin Human Regular 100 UNIT in 0.9 % Sodium Chloride 100 ML IVC SCH ×3 (01:11→15:57)
[2019-04-20] MEDS ORDERED: Naloxone 0.4 MG/ML INJ IVP PRN (01:21)
[2019-04-20] MEDS ORDERED: D5% in 0.45% NACL 1,000 ML IVC PRN (01:21)
[2019-04-20] MEDS ORDERED: *HR* Dextrose 50 % in Water (Syg) 50 ML SYRINGE IVP PRN (01:21)
[2019-04-20] MEDS ORDERED: Ondansetron 4 MG/2 ML VIAL IVP PRN (01:21)
[2019-04-20] MEDS: D5% in 0.45% NACL w KCl 20 MEQ/1,000 ML MLS IVC PRN ×2 (03:23→12:50)
[2019-04-20 04:18] LABS: VBG HCO3 9 mEq/L (21-27); VBG PCO2 17 mmHg (41-51); VBG PH 7.36 pH Units (7.32-7.42); VBG PO2 172 mmHg (25-50)
[2019-04-20 04:54] LABS: BUN/Creatinine Ratio 5 (6-26); Blood Urea Nitrogen 3 mg/dL (6-20); Calcium 8.4 mg/dL (8.6-10.3); Carbon Dioxide 7 mEq/L (23-29); Chloride 112 mEq/L (98-107); Glucose 184 mg/dL (70-105); Magnesium 1.5 mg/dL (1.6-2.6); Osmolality,Calculated 279 (280-300); Phosphorous < 1.0 mg/dL (2.7-4.5); Potassium 2.8 mEq/L (3.5-5.1); Sodium 134 mEq/L (136-145); eGFR For African Americans > 60; eGFR For Non-African Americans > 60
[2019-04-20] MEDS ORDERED: Calcium Gluconate 1gm/50mL 1 GM/50 ML BAG IVPB PRN (05:02)
[2019-04-20] MEDS ORDERED: Potassium Phosphate 44 MEQ in 0.9 % Sodium Chloride 250 ML IVPB PRN (05:02)
[2019-04-20] MEDS ORDERED: Potassium Phosphate 44 MEQ in 0.9 % Sodium Chloride 250 ML IVPB ONE (05:03)
[2019-04-20] MEDS ORDERED: Potassium Chloride Elixir 20 MEQ/15 ML UDC PO ONE (05:04)
[2019-04-20] MEDS ORDERED: Ringers Solution, Lactated 1,000 ML ONE (08:35)
[2019-04-20 09:02] LABS: Estimated Average Glucose 272 mg/dl
[2019-04-20] MEDS ORDERED: Ringers Solution, Lactated 1,000 ML IVC ONE (09:08)
[2019-04-20 09:19] LABS: VBG Ionized Calcium 1.18 mmol/L (1.15-1.35)
[2019-04-20 09:21] LABS: Basophils # 0.1 K/mcL (0.0-0.2); Basophils % 0.3 %; Eosinophils % 0.2 %; Hematocrit 36.3 % (35.3-44.9); Immature Granulocytes % 0.7 % (0-4); Lymphocytes # 1.7 K/mcL (0.6-4.6); Lymphocytes % 9.9 %; Mean Corpuscular HGB Conc 33.6 g/dL (31.6-35.5); Mean Corpuscular Hemoglobin 29.4 pg (28.0-33.3); Mean Corpuscular Volume 87.5 fL (83.0-100.0); Mean Platelet Volume 10.6 fL (9.4-12.4); Monocytes % 6.1 %; Neutrophils # 13.8 K/mcL (1.6-8.9); Platelet Count 383 K/mcL (140-400); Red Blood Count 4.15 M/mcL (3.82-4.97); Red Cell Distribution Width 12.3 % (11.5-14.5); Segmented Neutrophils % 82.8 %; White Blood Count 16.6 K/mcL (4.3-11.1)
[2019-04-20] MEDS: Insulin Regular, Human 100 UNIT/ML IV PRN ×3 (09:22→23:59)
[2019-04-20 09:25] LABS: Prothrombin Time 11.7 Seconds (9.4-12.1)
[2019-04-20] MEDS: cefTRIAXone 1,000 MG in Water for inj. (sterile) 10 ML IVP SCH (09:26)
[2019-04-20 09:28] LABS: Activated Partial Thrombo Time 24.6 Seconds (26.0-36.0)
[2019-04-20 09:36] LABS: Hemoglobin 12.2 g/dL (11.5-15.4)
[2019-04-20 09:56] LABS: BUN/Creatinine Ratio 6 (6-26); Blood Urea Nitrogen 4 mg/dL (6-20); Calcium 8.2 mg/dL (8.6-10.3); Carbon Dioxide 4 mEq/L (23-29); Chloride 106 mEq/L (98-107); Glucose 390 mg/dL (70-105); Magnesium 1.6 mg/dL (1.6-2.6); Osmolality,Calculated 285 (280-300); Potassium 5.2 mEq/L (3.5-5.1); Sodium 131 mEq/L (136-145); eGFR For African Americans > 60; eGFR For Non-African Americans > 60
[2019-04-20] MEDS ORDERED: 0.9 % Sodium Chloride 1,000 ML IVC ONE (10:21)
[2019-04-20] MEDS ORDERED: 0.9 % Sodium Chloride 1,000 ML ONE (10:27)
[2019-04-20] MEDS ORDERED: *HR* Promethazine 25 MG/ML VIAL IVP PRN (11:52)
[2019-04-20] MEDS: Potassium Chloride 40 MEQ in D5% in 0.45% NACL 1,000 ML IVC SCH ×3 (13:21→23:22)
[2019-04-20] MEDS: *HR* Dextrose 50 % in Water (Syg) 50 ML SYRINGE IVP PRN (13:37)
[2019-04-20 15:04] LABS: BUN/Creatinine Ratio 4 (6-26); Blood Urea Nitrogen 3 mg/dL (6-20); Calcium 8.7 mg/dL (8.6-10.3); Carbon Dioxide 10 mEq/L (23-29); Chloride 114 mEq/L (98-107); Glucose 73 mg/dL (70-105); Osmolality,Calculated 275 (280-300); Potassium 2.9 mEq/L (3.5-5.1); Sodium 135 mEq/L (136-145); eGFR For African Americans > 60; eGFR For Non-African Americans > 60
[2019-04-20] MEDS: *HR* Heparin 5,000 UNIT/ML VIAL SQ SCH (17:55)
[2019-04-20 18:49] LABS: BUN/Creatinine Ratio 4 (6-26); Blood Urea Nitrogen 3 mg/dL (6-20); Carbon Dioxide 10 mEq/L (23-29); Chloride 112 mEq/L (98-107); Glucose 211 mg/dL (70-105); Osmolality,Calculated 283 (280-300); Potassium 2.8 mEq/L (3.5-5.1); Sodium 135 mEq/L (136-145); eGFR For African Americans > 60; eGFR For Non-African Americans > 60
[2019-04-20] MEDS ORDERED: Potassium Chloride 40 MEQ, Lidocaine 1% 2 ML in 0.9 % Sodium Chloride 500 ML IVPB ONE (20:37)
[2019-04-20] MEDS ORDERED: Potassium Chloride 40 MEQ, Lidocaine 1% 2 ML in 0.9 % Sodium Chloride 500 ML IVPB SCH (20:45)
[2019-04-20] MEDS: Potassium Chloride 40 MEQ, Lidocaine 1% 2 ML in 0.9 % Sodium Chloride 500 ML IVPB PRN (21:51)
[2019-04-20 22:21] LABS: VBG HCO3 11 mEq/L (21-27); VBG PCO2 28 mmHg (41-51); VBG PH 7.19 pH Units (7.32-7.42); VBG PO2 237 mmHg (25-50)
[2019-04-20 22:37] LABS: BUN/Creatinine Ratio 4 (6-26); Blood Urea Nitrogen 3 mg/dL (6-20); Calcium 8.4 mg/dL (8.6-10.3); Carbon Dioxide 10 mEq/L (23-29); Chloride 109 mEq/L (98-107); Glucose 276 mg/dL (70-105); Osmolality,Calculated 286 (280-300); Potassium 3.6 mEq/L (3.5-5.1); Sodium 135 mEq/L (136-145); eGFR For African Americans > 60; eGFR For Non-African Americans > 60
[2019-04-20] MEDS: Potassium Phosphate 44 MEQ in 0.9 % Sodium Chloride 250 ML IVPB PRN (23:59)
[2019-04-21] MEDS: Insulin Human Regular 100 UNIT in 0.9 % Sodium Chloride 100 ML IVC SCH ×2 (00:54→09:11)
[2019-04-21] MEDS: Insulin Regular, Human 100 UNIT/ML IV PRN ×2 (00:58→02:04)
[2019-04-21 02:28] LABS: Basophils % 0.4 %; Eosinophils % 0.4 %; Hematocrit 40.6 % (35.3-44.9); Hemoglobin 13.6 g/dL (11.5-15.4); Immature Granulocytes % 0.6 % (0-4); Lymphocytes # 1.8 K/mcL (0.6-4.6); Lymphocytes % 19.2 %; Mean Corpuscular HGB Conc 33.5 g/dL (31.6-35.5); Mean Corpuscular Volume 89.4 fL (83.0-100.0); Mean Platelet Volume 10.7 fL (9.4-12.4); Monocytes # 0.4 K/mcL (0.0-1.3); Monocytes % 3.7 %; Neutrophils # 7.2 K/mcL (1.6-8.9); Platelet Count 394 K/mcL (140-400); Red Blood Count 4.54 M/mcL (3.82-4.97); Red Cell Distribution Width 12.5 % (11.5-14.5); Segmented Neutrophils % 75.7 %; White Blood Count 9.5 K/mcL (4.3-11.1)
[2019-04-21 02:38] LABS: VBG HCO3 6 mEq/L (21-27); VBG PCO2 22 mmHg (41-51); VBG PH 7.06 pH Units (7.32-7.42); VBG PO2 205 mmHg (25-50)
[2019-04-21 02:43] LABS: BUN/Creatinine Ratio 5 (6-26); Blood Urea Nitrogen 4 mg/dL (6-20); Calcium 8.6 mg/dL (8.6-10.3); Carbon Dioxide 4 mEq/L (23-29); Chloride 108 mEq/L (98-107); Glucose 492 mg/dL (70-105); Magnesium 1.8 mg/dL (1.6-2.6); Osmolality,Calculated 293 (280-300); Potassium 3.9 mEq/L (3.5-5.1); Sodium 132 mEq/L (136-145); eGFR For African Americans > 60; eGFR For Non-African Americans > 60
[2019-04-21] MEDS ORDERED: D5% in 0.45% NACL 1,000 ML IVC PRN (02:54)
[2019-04-21] MEDS ORDERED: Insulin Human Regular 100 UNIT in 0.9 % Sodium Chloride 100 ML IVC SCH (03:00)
[2019-04-21] MEDS ORDERED: Sodium Bicarbonate 50 MEQ in 0.45 % Sodium Chloride 1,000 ML IVC SCH (03:00)
[2019-04-21] MEDS ORDERED: 0.45 % Sodium Chloride w/KCl 20 MEQ/1,000 ML MLS IVC PRN (03:00)
[2019-04-21] MEDS: D5% in 0.45% NACL w KCl 20 MEQ/1,000 ML MLS IVC PRN ×3 (04:00→12:49)
[2019-04-21 04:32] LABS: VBG HCO3 8 mEq/L (21-27); VBG Ionized Calcium 1.28 mmol/L (1.15-1.35); VBG PCO2 21 mmHg (41-51); VBG PH 7.22 pH Units (7.32-7.42); VBG PO2 211 mmHg (25-50)
[2019-04-21 05:14] LABS: BUN/Creatinine Ratio 5 (6-26); Blood Urea Nitrogen 4 mg/dL (6-20); Calcium 8.8 mg/dL (8.6-10.3); Carbon Dioxide 7 mEq/L (23-29); Chloride 115 mEq/L (98-107); Glucose 176 mg/dL (70-105); Osmolality,Calculated 283 (280-300); Phosphorous < 1.0 mg/dL (2.7-4.5); Sodium 136 mEq/L (136-145); eGFR For African Americans > 60; eGFR For Non-African Americans > 60
[2019-04-21] MEDS: *HR* Heparin 5,000 UNIT/ML VIAL SQ SCH ×2 (05:58→17:03)
[2019-04-21] MEDS ORDERED: Insulin Regular, Human 100 UNIT/ML IV PRN (07:06)
[2019-04-21] MEDS: cefTRIAXone 1,000 MG in Water for inj. (sterile) 10 ML IVP SCH (08:18)
[2019-04-21] MEDS: Pantoprazole 40 MG VIAL IVP SCH (08:19)
[2019-04-21] MEDS: *HR* Dextrose 50 % in Water (Syg) 50 ML SYRINGE IVP PRN ×2 (08:19→22:47)
[2019-04-21] MEDS ORDERED: Ringers Solution, Lactated 500 ML IVC ONE (08:41)
[2019-04-21 08:51] LABS: VBG HCO3 14 mEq/L (21-27); VBG PCO2 29 mmHg (41-51); VBG PH 7.28 pH Units (7.32-7.42); VBG PO2 112 mmHg (25-50)
[2019-04-21 09:08] LABS: BUN/Creatinine Ratio 6 (6-26); Blood Urea Nitrogen 4 mg/dL (6-20); Calcium 8.2 mg/dL (8.6-10.3); Carbon Dioxide 13 mEq/L (23-29); Chloride 110 mEq/L (98-107); Glucose 63 mg/dL (70-105); Magnesium 2.1 mg/dL (1.6-2.6); Osmolality,Calculated 277 (280-300); Potassium 2.7 mEq/L (3.5-5.1); Sodium 136 mEq/L (136-145); eGFR For African Americans > 60; eGFR For Non-African Americans > 60
[2019-04-21] MEDS: 0.9 % Sodium Chloride 1,000 ML IVC SCH (09:10)
[2019-04-21] MEDS: Potassium Chloride 40 MEQ, Lidocaine 1% 2 ML in 0.9 % Sodium Chloride 500 ML IVPB PRN (10:45)
[2019-04-21] MEDS: Potassium Phosphate 44 MEQ in 0.9 % Sodium Chloride 250 ML IVPB PRN (12:49)
[2019-04-21 13:02] LABS: VBG HCO3 13 mEq/L (21-27); VBG PCO2 27 mmHg (41-51); VBG PH 7.29 pH Units (7.32-7.42); VBG PO2 196 mmHg (25-50)
[2019-04-21 13:19] LABS: BUN/Creatinine Ratio 4 (6-26); Blood Urea Nitrogen 3 mg/dL (6-20); Calcium 7.9 mg/dL (8.6-10.3); Carbon Dioxide 11 mEq/L (23-29); Chloride 111 mEq/L (98-107); Glucose 247 mg/dL (70-105); Osmolality,Calculated 281 (280-300); Potassium 3.3 mEq/L (3.5-5.1); Sodium 133 mEq/L (136-145); eGFR For African Americans > 60; eGFR For Non-African Americans > 60
[2019-04-21] MEDS ORDERED: Insulin DETEMIR 100 UNIT/ML X5UNITS SQ SCH (14:15)
[2019-04-21] MEDS ORDERED: Dextrose Gel 15 GM/37.5 ML TUBE PO PRN ×2 (14:15)
[2019-04-21] MEDS ORDERED: Insulin LISPRO 300 UNITS/3 ML VIAL SQ SCH ×3 (16:30→21:00)
[2019-04-21 17:01] LABS: VBG HCO3 14 mEq/L (21-27); VBG PCO2 27 mmHg (41-51); VBG PH 7.31 pH Units (7.32-7.42); VBG PO2 203 mmHg (25-50)
[2019-04-21] MEDS: Potassium Chloride 40 MEQ in D5% in Water 1,000 ML IVC SCH (17:02)
[2019-04-21 17:16] LABS: BUN/Creatinine Ratio 3 (6-26); Blood Urea Nitrogen 2 mg/dL (6-20); Calcium 8.5 mg/dL (8.6-10.3); Carbon Dioxide 15 mEq/L (23-29); Chloride 113 mEq/L (98-107); Glucose 84 mg/dL (70-105); Osmolality,Calculated 281 (280-300); Potassium 3.4 mEq/L (3.5-5.1); Sodium 138 mEq/L (136-145); eGFR For African Americans > 60; eGFR For Non-African Americans > 60
[2019-04-21 20:14] LABS: VBG HCO3 14 mEq/L (21-27); VBG PCO2 29 mmHg (41-51); VBG PH 7.28 pH Units (7.32-7.42); VBG PO2 198 mmHg (25-50)
[2019-04-21 20:32] LABS: BUN/Creatinine Ratio 3 (6-26); Blood Urea Nitrogen 2 mg/dL (6-20); Calcium 8.4 mg/dL (8.6-10.3); Carbon Dioxide 14 mEq/L (23-29); Chloride 108 mEq/L (98-107); Glucose 273 mg/dL (70-105); Osmolality,Calculated 282 (280-300); Potassium 3.8 mEq/L (3.5-5.1); Sodium 133 mEq/L (136-145); eGFR For African Americans > 60; eGFR For Non-African Americans > 60
[2019-04-22 01:11] LABS: VBG HCO3 16 mEq/L (21-27); VBG PCO2 31 mmHg (41-51); VBG PH 7.33 pH Units (7.32-7.42); VBG PO2 198 mmHg (25-50)
[2019-04-22 01:36] LABS: BUN/Creatinine Ratio 5 (6-26); Blood Urea Nitrogen 3 mg/dL (6-20); Calcium 8.8 mg/dL (8.6-10.3); Carbon Dioxide 14 mEq/L (23-29); Chloride 111 mEq/L (98-107); Glucose 119 mg/dL (70-105); Osmolality,Calculated 278 (280-300); Potassium 3.6 mEq/L (3.5-5.1); Sodium 135 mEq/L (136-145); eGFR For African Americans > 60; eGFR For Non-African Americans > 60
[2019-04-22] MEDS: Potassium Phosphate 44 MEQ in 0.9 % Sodium Chloride 250 ML IVPB PRN (02:25)
[2019-04-22] MEDS: Potassium Chloride 40 MEQ in D5% in Water 1,000 ML IVC SCH ×3 (03:35→23:02)
[2019-04-22] MEDS: Insulin Human Regular 100 UNIT in 0.9 % Sodium Chloride 100 ML IVC SCH (05:50)
[2019-04-22] MEDS: *HR* Heparin 5,000 UNIT/ML VIAL SQ SCH ×2 (05:50→18:46)
[2019-04-22 06:28] LABS: Basophils % 0.5 %; Eosinophils # 0.1 K/mcL (0.0-0.6); Eosinophils % 2.3 %; Immature Granulocytes % 0.2 % (0-4); Lymphocytes # 2.2 K/mcL (0.6-4.6); Mean Corpuscular HGB Conc 34.4 g/dL (31.6-35.5); Mean Corpuscular Volume 87.2 fL (83.0-100.0); Mean Platelet Volume 10.2 fL (9.4-12.4); Monocytes # 0.5 K/mcL (0.0-1.3); Monocytes % 9.3 %; Neutrophils # 2.8 K/mcL (1.6-8.9); Platelet Count 278 K/mcL (140-400); Red Cell Distribution Width 12.3 % (11.5-14.5); Segmented Neutrophils % 49.7 %; White Blood Count 5.7 K/mcL (4.3-11.1)
[2019-04-22 06:29] LABS: Hemoglobin 11.7 g/dL (11.5-15.4)
[2019-04-22 06:42] LABS: VBG HCO3 17 mEq/L (21-27); VBG PCO2 32 mmHg (41-51); VBG PH 7.34 pH Units (7.32-7.42); VBG PO2 187 mmHg (25-50)
[2019-04-22 06:51] LABS: BUN/Creatinine Ratio 3 (6-26); Blood Urea Nitrogen 2 mg/dL (6-20); Calcium 8.7 mg/dL (8.6-10.3); Carbon Dioxide 17 mEq/L (23-29); Chloride 111 mEq/L (98-107); Glucose 117 mg/dL (70-105); Osmolality,Calculated 287 (280-300); Potassium 3.5 mEq/L (3.5-5.1); Sodium 140 mEq/L (136-145); eGFR For African Americans > 60; eGFR For Non-African Americans > 60
[2019-04-22 06:52] LABS: Magnesium 1.8 mg/dL (1.6-2.6); Phosphorous 2.9 mg/dL (2.7-4.5)
[2019-04-22] MEDS: Pantoprazole 40 MG VIAL IVP SCH (07:54)
[2019-04-22] MEDS: cefTRIAXone 1,000 MG in Water for inj. (sterile) 10 ML IVP SCH (07:54)
[2019-04-22 11:04] LABS: VBG HCO3 10 mEq/L (21-27); VBG PCO2 18 mmHg (41-51); VBG PH 7.34 pH Units (7.32-7.42); VBG PO2 177 mmHg (25-50)
[2019-04-22 11:17] LABS: BUN/Creatinine Ratio 3 (6-26); Blood Urea Nitrogen 2 mg/dL (6-20); Calcium 8.5 mg/dL (8.6-10.3); Carbon Dioxide 16 mEq/L (23-29); Chloride 110 mEq/L (98-107); Glucose 142 mg/dL (70-105); Osmolality,Calculated 285 (280-300); Potassium 3.4 mEq/L (3.5-5.1); Sodium 138 mEq/L (136-145); eGFR For African Americans > 60; eGFR For Non-African Americans > 60
[2019-04-22] MEDS: *HR* Dextrose 50 % in Water (Syg) 50 ML SYRINGE IVP PRN ×2 (12:17→15:45)
[2019-04-22 12:50] LABS: Magnesium 1.6 mg/dL (1.6-2.6)
[2019-04-22 15:47] LABS: Blood Urea Nitrogen < 2 mg/dL (6-20); Calcium 6.4 mg/dL (8.6-10.3); Carbon Dioxide 14 mEq/L (23-29); Chloride 120 mEq/L (98-107); Glucose 76 mg/dL (70-105); Sodium 141 mEq/L (136-145); eGFR For African Americans > 60; eGFR For Non-African Americans > 60
[2019-04-22 15:50] LABS: Potassium 2.5 mEq/L (3.5-5.1)
[2019-04-22] MEDS ORDERED: Potassium Phosphate 44 MEQ in D5% in Water 250 ML IVPB ONE ×2 (16:22→21:00)
[2019-04-22 17:41] LABS: Magnesium 1.8 mg/dL (1.6-2.6)
[2019-04-22 19:23] LABS: Blood Urea Nitrogen < 2 mg/dL (6-20); Calcium 7.4 mg/dL (8.6-10.3); Carbon Dioxide 18 mEq/L (23-29); Chloride 110 mEq/L (98-107); Glucose 295 mg/dL (70-105); Potassium 3.8 mEq/L (3.5-5.1); Sodium 137 mEq/L (136-145); eGFR For African Americans > 60; eGFR For Non-African Americans > 60
[2019-04-22 19:58] LABS: VBG HCO3 17 mEq/L (21-27); VBG PCO2 28 mmHg (41-51); VBG PH 7.38 pH Units (7.32-7.42); VBG PO2 264 mmHg (25-50)
[2019-04-22 23:09] LABS: VBG HCO3 21 mEq/L (21-27); VBG PCO2 40 mmHg (41-51); VBG PH 7.33 pH Units (7.32-7.42); VBG PO2 234 mmHg (25-50)
[2019-04-22 23:35] LABS: Blood Urea Nitrogen < 2 mg/dL (6-20); Calcium 8.5 mg/dL (8.6-10.3); Carbon Dioxide 18 mEq/L (23-29); Chloride 112 mEq/L (98-107); Glucose 122 mg/dL (70-105); Potassium 3.7 mEq/L (3.5-5.1); Sodium 139 mEq/L (136-145); eGFR For African Americans > 60; eGFR For Non-African Americans > 60
[2019-04-23] MEDS ORDERED: D5% in Water 1,000 ML IVC PRN (02:23)
[2019-04-23] MEDS ORDERED: Insulin LISPRO 300 UNITS/3 ML VIAL SQ SCH ×2 (02:23→07:30)
[2019-04-23] MEDS ORDERED: Insulin DETEMIR 100 UNIT/ML X5UNITS SQ SCH (02:30)
[2019-04-23 03:07] LABS: VBG HCO3 19 mEq/L (21-27); VBG PCO2 28 mmHg (41-51); VBG PH 7.44 pH Units (7.32-7.42); VBG PO2 208 mmHg (25-50)
[2019-04-23 03:26] LABS: BUN/Creatinine Ratio 3 (6-26); Blood Urea Nitrogen 2 mg/dL (6-20); Calcium 8.6 mg/dL (8.6-10.3); Carbon Dioxide 19 mEq/L (23-29); Chloride 107 mEq/L (98-107); Glucose 183 mg/dL (70-105); Osmolality,Calculated 285 (280-300); Potassium 3.5 mEq/L (3.5-5.1); Sodium 137 mEq/L (136-145); eGFR For African Americans > 60; eGFR For Non-African Americans > 60
[2019-04-23] MEDS: *HR* Heparin 5,000 UNIT/ML VIAL SQ SCH ×2 (06:18→17:05)
[2019-04-23] MEDS ORDERED: *HR* Dextrose 50 % in Water (Syg) 50 ML SYRINGE IVP PRN (07:50)
[2019-04-23] MEDS: Pantoprazole 40 MG VIAL IVP SCH (08:08)
[2019-04-23] MEDS: Insulin LISPRO 300 UNITS/3 ML VIAL SQ SCH ×3 (08:11→17:05)
[2019-04-23] MEDS: Insulin DETEMIR 100 UNIT/ML X5UNITS SQ SCH ×2 (10:58→22:01)
[2019-04-23 11:10] LABS: VBG HCO3 22 mEq/L (21-27); VBG PCO2 41 mmHg (41-51); VBG PH 7.33 pH Units (7.32-7.42); VBG PO2 59 mmHg (25-50)
[2019-04-23 11:22] LABS: BUN/Creatinine Ratio 2 (6-26); Blood Urea Nitrogen 2 mg/dL (6-20); Calcium 9.1 mg/dL (8.6-10.3); Carbon Dioxide 20 mEq/L (23-29); Chloride 103 mEq/L (98-107); Glucose 278 mg/dL (70-105); Osmolality,Calculated 286 (280-300); Potassium 4.1 mEq/L (3.5-5.1); Sodium 135 mEq/L (136-145); eGFR For African Americans > 60; eGFR For Non-African Americans > 60
[2019-04-23 11:24] LABS: Phosphorous 2.2 mg/dL (2.7-4.5)
[2019-04-23] MEDS ORDERED: Potassium Phosphate 44 MEQ in 0.9 % Sodium Chloride 250 ML IVPB ONE (16:30)
[2019-04-24] MEDS: *HR* Heparin 5,000 UNIT/ML VIAL SQ SCH (07:01)
[2019-04-24 08:31] LABS: Basophils % 0.7 %; Eosinophils # 0.3 K/mcL (0.0-0.6); Eosinophils % 4.9 %; Hemoglobin 12.3 g/dL (11.5-15.4); Immature Granulocytes % 0.7 % (0-4); Lymphocytes # 2.2 K/mcL (0.6-4.6); Lymphocytes % 38.2 %; Mean Corpuscular HGB Conc 35.1 g/dL (31.6-35.5); Mean Corpuscular Hemoglobin 29.8 pg (28.0-33.3); Mean Corpuscular Volume 84.7 fL (83.0-100.0); Mean Platelet Volume 10.6 fL (9.4-12.4); Monocytes # 0.5 K/mcL (0.0-1.3); Monocytes % 8.7 %; Neutrophils # 2.7 K/mcL (1.6-8.9); Platelet Count 293 K/mcL (140-400); Red Blood Count 4.13 M/mcL (3.82-4.97); Red Cell Distribution Width 12.2 % (11.5-14.5); Segmented Neutrophils % 46.8 %; White Blood Count 5.8 K/mcL (4.3-11.1)
[2019-04-24] MEDS: Insulin DETEMIR 100 UNIT/ML X5UNITS SQ SCH (08:47)
[2019-04-24] MEDS: Insulin LISPRO 300 UNITS/3 ML VIAL SQ SCH ×2 (08:47→13:47)
[2019-04-24 08:48] LABS: BUN/Creatinine Ratio 12 (6-26); Blood Urea Nitrogen 7 mg/dL (6-20); Carbon Dioxide 24 mEq/L (23-29); Chloride 99 mEq/L (98-107); Glucose 291 mg/dL (70-105); Osmolality,Calculated 287 (280-300); Phosphorous 3.8 mg/dL (2.7-4.5); Potassium 4.3 mEq/L (3.5-5.1); Sodium 134 mEq/L (136-145); eGFR For African Americans > 60; eGFR For Non-African Americans > 60
[2019-04-24 11:38] VITALS: BP 118/79
== END 2019-04-24 15:54 | disposition home or self-care (01) | DRG 420 ==
LOC: EMEROOARM 06:17 → 2NNU 06:17 → SUATTDRO 12:56 → 2NNU 14:31 → ICNU 17:49 → CDU 04-20 00:52 → 2NNU 04-20 13:04 → SUATTDRO 04-20 16:41 → 3ANU 04-23 09:28
PROVIDERS: ADMIT Internal Medicine; ATTEND Internal Medicine

== ENCOUNTER 2019-05-16 17:25 | Inpatient (IN) ==
[2019-05-16] MEDS ORDERED: Ringers Solution, Lactated 1,000 ML IVC ONE (17:44)
[2019-05-16 18:06] LABS: Basophils # 0.1 K/mcL (0.0-0.2); Basophils % 1.2 %; Eosinophils % 0.1 %; Hematocrit 46.5 % (35.3-44.9); Hemoglobin 15.8 g/dL (11.5-15.4); Immature Granulocytes % 1.1 % (0-4); Lymphocytes # 2.4 K/mcL (0.6-4.6); Lymphocytes % 22.5 %; Mean Corpuscular Hemoglobin 29.5 pg (28.0-33.3); Mean Corpuscular Volume 86.8 fL (83.0-100.0); Mean Platelet Volume 9.9 fL (9.4-12.4); Monocytes # 0.6 K/mcL (0.0-1.3); Monocytes % 5.7 %; Neutrophils # 7.5 K/mcL (1.6-8.9); Platelet Count 432 K/mcL (140-400); Red Blood Count 5.36 M/mcL (3.82-4.97); Red Cell Distribution Width 12.6 % (11.5-14.5); Segmented Neutrophils % 69.4 %; White Blood Count 10.8 K/mcL (4.3-11.1)
[2019-05-16 18:11] LABS: VBG PCO2 < 13 mmHg (41-51); VBG PH 7.11 pH Units (7.32-7.42); VBG PO2 136 mmHg (25-50)
[2019-05-16] MEDS ORDERED: *HR* Dextrose 50 % in Water (Syg) 50 ML SYRINGE IVP PRN ×2 (18:20→20:40)
[2019-05-16 18:23] LABS: Large Platelets Present (Not Present); Platelet Estimate Increased (Normal); Reactive Lymphocytes Present (Not Present); Toxic Granulation Present (Not Present)
[2019-05-16 18:26] LABS: Alanine Aminotransferase 15 Units/L (7-52); Albumin 4.7 g/dL (3.5-5.7); Albumin/Globulin Ratio 1.3 (1.1-2.2); Alkaline Phosphatase 118 Units/L (34-104); Aspartate Amino Transferase 14 Units/L (13-39); BUN/Creatinine Ratio 16 (6-26); Bilirubin,Indirect 0.3 mg/dL (0.0-1.0); Bilirubin,Total 0.3 mg/dL (0.3-1.0); Blood Urea Nitrogen 18 mg/dL (6-20); Calcium 9.7 mg/dL (8.6-10.3); Carbon Dioxide < 4 mEq/L (23-29); Chloride 101 mEq/L (98-107); Ethanol < 10 mg/dL (Less than 10); Globulin 3.5 g/dL (2.4-3.5); Glucose 554 mg/dL (70-105); Lipase 8 Units/L (11-82); Magnesium 2.2 mg/dL (1.6-2.6); Osmolality,Calculated 301 (280-300); Potassium 4.9 mEq/L (3.5-5.1); Sodium 132 mEq/L (136-145); Total Protein 8.2 g/dL (6.4-8.9); eGFR For African Americans > 60; eGFR For Non-African Americans > 60
[2019-05-16] MEDS: Insulin Human Regular 100 UNIT in 0.9 % Sodium Chloride 100 ML IVC SCH (18:57)
[2019-05-16 19:03] LABS: Bilirubin,Urine Negative (Negative); Blood,Urine Trace (Negative); Clarity,Urine Clear (Clear); Color,Urine Yellow (Yellow); Glucose,Urine (UA) >=1000 mg/dL (Normal); Ketones,Urine >=160 mg/dL (Negative); Leukocyte Esterase,Urine Negative (Negative); Nitrite,Urine Negative (Negative); PH,Urine 5.5 pH Units (5.0-8.0); Protein,Urine 100 mg/dL (Neg-Trace); Specific Gravity,Urine > 1.030 (1.010-1.025); Urobilinogen,Urine Normal (Normal)
[2019-05-16 19:05] LABS: Bacteria,Urine None Seen per hpf (None-Few); Hyaline Casts,Urine None Seen per lpf (None-Few); RBC,Urine 0-3 per hpf (0-3); Squamous Epithelial Cell,Urine Many per lpf (None-Few)
[2019-05-16] MEDS ORDERED: Naloxone 0.4 MG/ML INJ IVP PRN (20:39)
[2019-05-16] MEDS ORDERED: D5% in 0.45% NACL 1,000 ML IVC PRN (20:40)
[2019-05-16] MEDS ORDERED: Insulin Regular, Human 100 UNIT/ML IV PRN ×2 (20:40)
[2019-05-16] MEDS ORDERED: 0.9 % Sodium Chloride w KCl 20 MEQ/1,000 ML MLS IVC PRN ×2 (20:45→23:58)
[2019-05-16] MEDS ORDERED: 0.9 % Sodium Chloride w KCl 20 MEQ/1,000 ML MLS IVC SCH (20:45)
[2019-05-16] MEDS ORDERED: 0.45 % Sodium Chloride w/KCl 20 MEQ/1,000 ML MLS IVC PRN ×2 (20:45)
[2019-05-16] MEDS ORDERED: 0.9 % Sodium Chloride 1,000 ML IVC SCH (20:45)
[2019-05-16] MEDS ORDERED: 0.9 % Sodium Chloride 1,000 ML IVC PRN ×2 (20:45→23:58)
[2019-05-16] MEDS ORDERED: Insulin Human Regular 100 UNIT in 0.9 % Sodium Chloride 100 ML IVC SCH (20:45)
[2019-05-16] MEDS ORDERED: Ondansetron 4 MG/2 ML VIAL IVP PRN (21:25)
[2019-05-16] MEDS: 0.9 % Sodium Chloride 1,000 ML IVC SCH (21:56)
[2019-05-16 23:23] LABS: BUN/Creatinine Ratio 17 (6-26); Blood Urea Nitrogen 15 mg/dL (6-20); Calcium 9.3 mg/dL (8.6-10.3); Carbon Dioxide 8 mEq/L (23-29); Chloride 109 mEq/L (98-107); Glucose 250 mg/dL (70-105); Osmolality,Calculated 291 (280-300); Potassium 4.1 mEq/L (3.5-5.1); Sodium 136 mEq/L (136-145); eGFR For African Americans > 60; eGFR For Non-African Americans > 60
[2019-05-17] MEDS: D5% in 0.45% NACL w KCl 20 MEQ/1,000 ML MLS IVC PRN ×6 (00:19→21:23)
[2019-05-17 02:03] LABS: VBG HCO3 12 mEq/L (21-27); VBG PCO2 25 mmHg (41-51); VBG PH 7.29 pH Units (7.32-7.42); VBG PO2 156 mmHg (25-50)
[2019-05-17 02:03] LABS: Hematocrit 38.9 % (35.3-44.9); Mean Corpuscular Hemoglobin 29.1 pg (28.0-33.3); Mean Corpuscular Volume 83.3 fL (83.0-100.0); Mean Platelet Volume 9.4 fL (9.4-12.4); Platelet Count 370 K/mcL (140-400); Red Blood Count 4.67 M/mcL (3.82-4.97); Red Cell Distribution Width 12.7 % (11.5-14.5); White Blood Count 6.9 K/mcL (4.3-11.1)
[2019-05-17 02:04] LABS: Hemoglobin 13.6 g/dL (11.5-15.4)
[2019-05-17] MEDS: 0.9 % Sodium Chloride 1,000 ML IVC SCH (02:11)
[2019-05-17 02:23] LABS: BUN/Creatinine Ratio 18 (6-26); Blood Urea Nitrogen 14 mg/dL (6-20); Calcium 8.8 mg/dL (8.6-10.3); Carbon Dioxide 11 mEq/L (23-29); Chloride 115 mEq/L (98-107); Glucose 96 mg/dL (70-105); Osmolality,Calculated 286 (280-300); Potassium 3.5 mEq/L (3.5-5.1); Sodium 138 mEq/L (136-145); eGFR For African Americans > 60; eGFR For Non-African Americans > 60
[2019-05-17 07:05] LABS: BUN/Creatinine Ratio 15 (6-26); Blood Urea Nitrogen 13 mg/dL (6-20); Calcium 8.9 mg/dL (8.6-10.3); Carbon Dioxide 9 mEq/L (23-29); Chloride 109 mEq/L (98-107); Glucose 271 mg/dL (70-105); Osmolality,Calculated 288 (280-300); Potassium 4.2 mEq/L (3.5-5.1); Sodium 134 mEq/L (136-145); eGFR For African Americans > 60; eGFR For Non-African Americans > 60
[2019-05-17 10:42] LABS: BUN/Creatinine Ratio 16 (6-26); Blood Urea Nitrogen 12 mg/dL (6-20); Calcium 8.8 mg/dL (8.6-10.3); Carbon Dioxide 13 mEq/L (23-29); Chloride 113 mEq/L (98-107); Glucose 117 mg/dL (70-105); Osmolality,Calculated 281 (280-300); Potassium 3.2 mEq/L (3.5-5.1); Sodium 135 mEq/L (136-145); eGFR For African Americans > 60; eGFR For Non-African Americans > 60
[2019-05-17] MEDS: Insulin Human Regular 100 UNIT in 0.9 % Sodium Chloride 100 ML IVC SCH ×2 (11:22→18:31)
[2019-05-17 16:46] LABS: BUN/Creatinine Ratio 13 (6-26); Blood Urea Nitrogen 9 mg/dL (6-20); Calcium 8.5 mg/dL (8.6-10.3); Carbon Dioxide 13 mEq/L (23-29); Chloride 110 mEq/L (98-107); Glucose 198 mg/dL (70-105); Osmolality,Calculated 278 (280-300); Potassium 4.1 mEq/L (3.5-5.1); Sodium 132 mEq/L (136-145); eGFR For African Americans > 60; eGFR For Non-African Americans > 60
[2019-05-17 20:49] LABS: BUN/Creatinine Ratio 11 (6-26); Blood Urea Nitrogen 7 mg/dL (6-20); Calcium 8.5 mg/dL (8.6-10.3); Carbon Dioxide 13 mEq/L (23-29); Chloride 112 mEq/L (98-107); Glucose 152 mg/dL (70-105); Osmolality,Calculated 277 (280-300); Potassium 4.2 mEq/L (3.5-5.1); Sodium 133 mEq/L (136-145); eGFR For African Americans > 60; eGFR For Non-African Americans > 60
[2019-05-18 00:26] LABS: BUN/Creatinine Ratio 9 (6-26); Blood Urea Nitrogen 5 mg/dL (6-20); Calcium 8.8 mg/dL (8.6-10.3); Carbon Dioxide 14 mEq/L (23-29); Chloride 112 mEq/L (98-107); Glucose 118 mg/dL (70-105); Osmolality,Calculated 276 (280-300); Potassium 3.3 mEq/L (3.5-5.1); Sodium 134 mEq/L (136-145); eGFR For African Americans > 60; eGFR For Non-African Americans > 60
[2019-05-18] MEDS ORDERED: *HR* Dextrose 50 % in Water (Syg) 50 ML SYRINGE IVP PRN (00:35)
[2019-05-18] MEDS ORDERED: D5% in Water 1,000 ML IVC PRN (00:35)
[2019-05-18] MEDS ORDERED: Dextrose Gel 15 GM/37.5 ML TUBE PO PRN ×2 (00:35)
[2019-05-18] MEDS: Insulin DETEMIR 100 UNIT/ML X5UNITS SQ SCH ×2 (01:19→08:25)
[2019-05-18] MEDS: Potassium Chloride Elixir 20 MEQ/15 ML UDC PO SCH ×2 (01:40→06:02)
[2019-05-18] MEDS: Insulin Human Regular 100 UNIT in 0.9 % Sodium Chloride 100 ML IVC SCH (02:10)
[2019-05-18 05:12] LABS: BUN/Creatinine Ratio 10 (6-26); Blood Urea Nitrogen 9 mg/dL (6-20); Calcium 8.4 mg/dL (8.6-10.3); Carbon Dioxide 15 mEq/L (23-29); Chloride 107 mEq/L (98-107); Glucose 494 mg/dL (70-105); Osmolality,Calculated 297 (280-300); Potassium 4.3 mEq/L (3.5-5.1); Sodium 133 mEq/L (136-145); eGFR For African Americans > 60; eGFR For Non-African Americans > 60
[2019-05-18] MEDS ORDERED: Insulin LISPRO 300 UNITS/3 ML VIAL SQ SCH ×2 (06:00→21:00)
[2019-05-18] MEDS: Insulin LISPRO 300 UNITS/3 ML VIAL SQ SCH ×5 (08:13→17:10)
[2019-05-18] MEDS ORDERED: Insulin DETEMIR 100 UNIT/ML X5UNITS SQ SCH (21:00)
[2019-05-18 23:53] LABS: VBG HCO3 22 mEq/L (21-27); VBG PCO2 37 mmHg (41-51); VBG PH 7.38 pH Units (7.32-7.42); VBG PO2 100 mmHg (25-50)
[2019-05-19 00:10] LABS: BUN/Creatinine Ratio 17 (6-26); Blood Urea Nitrogen 12 mg/dL (6-20); Calcium 9.3 mg/dL (8.6-10.3); Carbon Dioxide 20 mEq/L (23-29); Chloride 105 mEq/L (98-107); Glucose 204 mg/dL (70-105); Osmolality,Calculated 284 (280-300); Potassium 3.6 mEq/L (3.5-5.1); Sodium 134 mEq/L (136-145); eGFR For African Americans > 60; eGFR For Non-African Americans > 60
[2019-05-19 01:13] LABS: Eosinophils # 0.1 K/mcL (0.0-0.6); Hemoglobin 12.9 g/dL (11.5-15.4); Mean Corpuscular HGB Conc 35.8 g/dL (31.6-35.5); Mean Corpuscular Hemoglobin 29.2 pg (28.0-33.3); Mean Corpuscular Volume 81.4 fL (83.0-100.0); Mean Platelet Volume 10.3 fL (9.4-12.4); Platelet Count 211 K/mcL (140-400); Red Blood Count 4.42 M/mcL (3.82-4.97); Red Cell Distribution Width 12.3 % (11.5-14.5); White Blood Count 3.7 K/mcL (4.3-11.1)
[2019-05-19 01:23] LABS: BUN/Creatinine Ratio 17 (6-26); Blood Urea Nitrogen 11 mg/dL (6-20); Calcium 8.6 mg/dL (8.6-10.3); Carbon Dioxide 18 mEq/L (23-29); Chloride 107 mEq/L (98-107); Glucose 238 mg/dL (70-105); Osmolality,Calculated 285 (280-300); Potassium 3.4 mEq/L (3.5-5.1); Sodium 134 mEq/L (136-145); eGFR For African Americans > 60; eGFR For Non-African Americans > 60
[2019-05-19 02:14] LABS: Neutrophils # 0.7 K/mcL (1.6-8.9); Platelet Estimate Normal (Normal); Reactive Lymphocytes Present (Not Present)
[2019-05-19] MEDS ORDERED: Insulin LISPRO 300 UNITS/3 ML VIAL SQ ONE (03:29)
[2019-05-19] MEDS ORDERED: Insulin LISPRO 300 UNITS/3 ML VIAL SQ SCH (03:33)
[2019-05-19 07:37] VITALS: BP 104/63
[2019-05-19] MEDS: Insulin LISPRO 300 UNITS/3 ML VIAL SQ SCH ×2 (08:09→08:10)
[2019-05-19] MEDS ORDERED: Insulin DETEMIR 100 UNIT/ML X5UNITS SQ SCH (09:00)
== END 2019-05-19 10:30 | disposition home or self-care (01) | DRG 420 ==
LOC: EMEROOARM 17:25 → 2NNU 17:25 → SUATTDRO 19:08 → 2NNU 20:15
PROVIDERS: ADMIT Internal Medicine; ATTEND Family Medicine

== ENCOUNTER 2019-06-17 03:50 | Inpatient (IN) ==
[2019-06-17] MEDS ORDERED: 0.9 % Sodium Chloride 1,000 ML IVC ONE ×3 (03:57→05:16)
[2019-06-17 04:49] LABS: VBG HCO3 8 mEq/L (21-27); VBG PCO2 27 mmHg (41-51); VBG PO2 151 mmHg (25-50)
[2019-06-17 04:57] LABS: Bilirubin,Urine Negative (Negative); Blood,Urine Negative (Negative); Clarity,Urine Clear (Clear); Color,Urine Yellow (Yellow); Glucose,Urine (UA) >=1000 mg/dL (Normal); Ketones,Urine >=160 mg/dL (Negative); Leukocyte Esterase,Urine Small (Negative); Nitrite,Urine Negative (Negative); Protein,Urine Trace mg/dL (Neg-Trace); Specific Gravity,Urine > 1.030 (1.010-1.025); Urobilinogen,Urine Normal (Normal)
[2019-06-17 04:58] LABS: Bacteria,Urine Few per hpf (None-Few); Hyaline Casts,Urine None Seen per lpf (None-Few); RBC,Urine 0-3 per hpf (0-3); Squamous Epithelial Cell,Urine Moderate per lpf (None-Few); WBC,Urine 30-50 per hpf (0-3)
[2019-06-17 05:05] LABS: Alanine Aminotransferase 9 Units/L (7-52); Albumin 4.5 g/dL (3.5-5.7); Albumin/Globulin Ratio 1.5 (1.1-2.2); Alkaline Phosphatase 105 Units/L (34-104); Aspartate Amino Transferase 9 Units/L (13-39); BUN/Creatinine Ratio 26 (6-26); Bilirubin,Total 0.3 mg/dL (0.3-1.0); Blood Urea Nitrogen 21 mg/dL (6-20); Calcium 9.5 mg/dL (8.6-10.3); Carbon Dioxide 7 mEq/L (23-29); Chloride 99 mEq/L (98-107); Glucose 508 mg/dL (70-105); Osmolality,Calculated 298 (280-300); Potassium 3.9 mEq/L (3.5-5.1); Sodium 131 mEq/L (136-145); Total Protein 7.5 g/dL (6.4-8.9); eGFR For African Americans > 60; eGFR For Non-African Americans > 60
[2019-06-17] MEDS ORDERED: *HR* Dextrose 50 % in Water (Syg) 50 ML SYRINGE IVP PRN ×2 (05:10→05:40)
[2019-06-17] MEDS ORDERED: Insulin Human Regular 100 UNIT in 0.9 % Sodium Chloride 100 ML IVC SCH ×2 (05:15→17:30)
[2019-06-17] MEDS ORDERED: cefTRIAXone 1,000 MG in 0.9 % Sodium Chloride Mini Bag 100 ML IVPB ONE (05:16)
[2019-06-17 05:33] LABS: Basophils # 0.1 K/mcL (0.0-0.2); Basophils % 0.6 %; Eosinophils # 0.2 K/mcL (0.0-0.6); Eosinophils % 0.9 %; Hematocrit 38.3 % (35.3-44.9); Hemoglobin 12.4 g/dL (11.5-15.4); Immature Granulocytes % 1.9 % (0-4); Lymphocytes # 3.7 K/mcL (0.6-4.6); Lymphocytes % 20.3 %; Mean Corpuscular HGB Conc 32.4 g/dL (31.6-35.5); Mean Corpuscular Volume 89.7 fL (83.0-100.0); Mean Platelet Volume 10.3 fL (9.4-12.4); Monocytes % 5.7 %; Neutrophils # 12.7 K/mcL (1.6-8.9); Platelet Count 356 K/mcL (140-400); Red Blood Count 4.27 M/mcL (3.82-4.97); Red Cell Distribution Width 12.4 % (11.5-14.5); Segmented Neutrophils % 70.6 %
[2019-06-17] MEDS ORDERED: D5% in 0.45% NACL 1,000 ML IVC PRN (05:40)
[2019-06-17] MEDS ORDERED: D5% in 0.45% NACL w KCl 20 MEQ/1,000 ML MLS IVC PRN (05:40)
[2019-06-17] MEDS ORDERED: Insulin Regular, Human 100 UNIT/ML IV PRN ×2 (05:40)
[2019-06-17] MEDS ORDERED: 0.9 % Sodium Chloride 1,000 ML IVC SCH (05:45)
[2019-06-17] MEDS ORDERED: 0.9 % Sodium Chloride w KCl 20 MEQ/1,000 ML MLS IVC PRN (06:15)
[2019-06-17] MEDS ORDERED: Ondansetron 4 MG/2 ML VIAL IVP ONE (06:18)
[2019-06-17] MEDS ORDERED: Ondansetron 4 MG/2 ML VIAL ONE (06:21)
[2019-06-17 07:16] LABS: VBG HCO3 5 mEq/L (21-27); VBG PCO2 30 mmHg (41-51); VBG PH 6.86 pH Units (7.32-7.42); VBG PO2 157 mmHg (25-50)
[2019-06-17] MEDS: D5% in 0.9% NACL w KCl 20 MEQ/1,000 ML MLS IVC SCH ×3 (09:43→20:19)
[2019-06-17 10:32] LABS: VBG Ionized Calcium 0.97 mmol/L (1.15-1.35)
[2019-06-17] MEDS: Pantoprazole 40 MG VIAL IVP SCH (10:55)
[2019-06-17 12:14] LABS: Amphetamine Screen,Urine Negative ng/mL (Cutoff=1000); Barbiturate Screen,Urine Negative ng/mL (Cutoff=200); Benzodiazepines Screen,Urine Negative ng/mL (Cutoff=200); Cannabinoid Screen,Urine Negative ng/mL (Cutoff = 50); Cocaine Screen,Urine Negative ng/mL (Cutoff= 300); Opiate Screen,Urine Negative ng/mL (Cutoff=300); Phencyclidine Screen,Urine Negative ng/mL (Cutoff=25)
[2019-06-17 12:20] LABS: Alanine Aminotransferase 7 Units/L (7-52); Albumin 3.6 g/dL (3.5-5.7); Albumin/Globulin Ratio 1.4 (1.1-2.2); Alkaline Phosphatase 84 Units/L (34-104); Aspartate Amino Transferase 14 Units/L (13-39); BUN/Creatinine Ratio 19 (6-26); Bilirubin,Total 0.2 mg/dL (0.3-1.0); Blood Urea Nitrogen 14 mg/dL (6-20); Calcium 7.5 mg/dL (8.6-10.3); Carbon Dioxide < 4 mEq/L (23-29); Chloride 117 mEq/L (98-107); Globulin 2.6 g/dL (2.4-3.5); Glucose 183 mg/dL (70-105); Osmolality,Calculated 285 (280-300); Phosphorous 2.3 mg/dL (2.7-4.5); Potassium 4.5 mEq/L (3.5-5.1); Sodium 135 mEq/L (136-145); Total Protein 6.2 g/dL (6.4-8.9); eGFR For African Americans > 60; eGFR For Non-African Americans > 60
[2019-06-17] MEDS: Calcium Gluconate 1gm/50mL 1 GM/50 ML BAG IVPB SCH ×2 (12:30→13:45)
[2019-06-17 13:51] LABS: ABG Base Excess -15 mEq/L (-2 to 3); ABG HCO3 11 mEq/L (21-27); ABG Oxygen Saturation 98 % (95-98); ABG PCO2 26 mmHg (35-45); ABG PH 7.23 pH Units (7.32-7.45); ABG PO2 111 mmHg (85-104); ABG TCO2 12 mEq/L (20-26)
[2019-06-17 14:28] LABS: BUN/Creatinine Ratio 16 (6-26); Blood Urea Nitrogen 11 mg/dL (6-20); Calcium 8.1 mg/dL (8.6-10.3); Carbon Dioxide 9 mEq/L (23-29); Chloride 114 mEq/L (98-107); Glucose 123 mg/dL (70-105); Osmolality,Calculated 283 (280-300); Potassium 3.7 mEq/L (3.5-5.1); Sodium 136 mEq/L (136-145); eGFR For African Americans > 60; eGFR For Non-African Americans > 60
[2019-06-17] MEDS ORDERED: Potassium Phosphate 44 MEQ in 0.9 % Sodium Chloride 250 ML IVPB ONE (14:56)
[2019-06-17] MEDS: cefTRIAXone 1,000 MG in Water for inj. (sterile) 10 ML IVP SCH (15:08)
[2019-06-17 15:19] LABS: Adenovirus Not Detected (Not Detect); Bordetella Pertussis Not Detected (Not Detect); Chlamydophila pneumoniae Not Detected (Not Detect); Coronavirus 229E Not Detected (Not Detect); Coronavirus HKU1 Not Detected (Not Detect); Coronavirus NL63 Not Detected (Not Detect); Coronavirus OC43 Not Detected (Not Detect); Human Metapneumovirus Not Detected (Not Detect); Human Rhinovirus/Enterovirus Not Detected (Not Detect); Influenza A Subtype 2009 H1 Not Detected (Not Detect); Influenza B Not Detected (Not Detect); Mycoplasma pneumoniae Not Detected (Not Detect); Parainfluenza Virus 1 Not Detected (Not Detect); Parainfluenza Virus 2 Not Detected (Not Detect); Parainfluenza Virus 3 Not Detected (Not Detect); Parainfluenza Virus 4 Not Detected (Not Detect); Respiratory Syncytial Virus Not Detected (Not Detect)
[2019-06-17] MEDS: 0.9 % Sodium Chloride w KCl 20 MEQ/1,000 ML MLS IVC SCH (18:27)
[2019-06-17 20:43] LABS: Alanine Aminotransferase 6 Units/L (7-52); Albumin 3.2 g/dL (3.5-5.7); Albumin/Globulin Ratio 1.5 (1.1-2.2); Alkaline Phosphatase 68 Units/L (34-104); Aspartate Amino Transferase 8 Units/L (13-39); BUN/Creatinine Ratio 12 (6-26); Bilirubin,Total 0.2 mg/dL (0.3-1.0); Blood Urea Nitrogen 7 mg/dL (6-20); Calcium 7.6 mg/dL (8.6-10.3); Carbon Dioxide 12 mEq/L (23-29); Chloride 117 mEq/L (98-107); Globulin 2.1 g/dL (2.4-3.5); Glucose 111 mg/dL (70-105); Magnesium 1.3 mg/dL (1.6-2.6); Osmolality,Calculated 281 (280-300); Phosphorous 2.6 mg/dL (2.7-4.5); Potassium 3.7 mEq/L (3.5-5.1); Sodium 136 mEq/L (136-145); Total Protein 5.3 g/dL (6.4-8.9); eGFR For African Americans > 60; eGFR For Non-African Americans > 60
[2019-06-18] MEDS: D5% in 0.9% NACL w KCl 20 MEQ/1,000 ML MLS IVC SCH ×4 (00:16→08:35)
[2019-06-18 00:26] LABS: VBG HCO3 12 mEq/L (21-27); VBG PCO2 28 mmHg (41-51); VBG PH 7.25 pH Units (7.32-7.42); VBG PO2 192 mmHg (25-50)
[2019-06-18 00:47] LABS: BUN/Creatinine Ratio 9 (6-26); Blood Urea Nitrogen 6 mg/dL (6-20); Calcium 7.5 mg/dL (8.6-10.3); Carbon Dioxide 10 mEq/L (23-29); Chloride 115 mEq/L (98-107); Glucose 221 mg/dL (70-105); Osmolality,Calculated 284 (280-300); Potassium 3.8 mEq/L (3.5-5.1); Sodium 135 mEq/L (136-145); eGFR For African Americans > 60; eGFR For Non-African Americans > 60
[2019-06-18] MEDS: 0.9 % Sodium Chloride w KCl 20 MEQ/1,000 ML MLS IVC SCH ×3 (03:23→04:29)
[2019-06-18 05:32] LABS: Basophils % 0.4 %; Eosinophils # 0.2 K/mcL (0.0-0.6); Hematocrit 33.5 % (35.3-44.9); Hemoglobin 11.2 g/dL (11.5-15.4); Immature Granulocytes % 0.9 % (0-4); Lymphocytes # 2.2 K/mcL (0.6-4.6); Lymphocytes % 29.6 %; Mean Corpuscular HGB Conc 33.4 g/dL (31.6-35.5); Mean Corpuscular Hemoglobin 29.5 pg (28.0-33.3); Mean Corpuscular Volume 88.2 fL (83.0-100.0); Mean Platelet Volume 9.8 fL (9.4-12.4); Monocytes # 0.7 K/mcL (0.0-1.3); Monocytes % 9.4 %; Neutrophils # 4.3 K/mcL (1.6-8.9); Platelet Count 299 K/mcL (140-400); Red Cell Distribution Width 12.9 % (11.5-14.5); Segmented Neutrophils % 57.7 %
[2019-06-18 05:37] LABS: White Blood Count 7.4 K/mcL (4.3-11.1)
[2019-06-18 06:10] LABS: Alanine Aminotransferase 6 Units/L (7-52); Albumin 3.1 g/dL (3.5-5.7); Albumin/Globulin Ratio 1.6 (1.1-2.2); Alkaline Phosphatase 65 Units/L (34-104); Aspartate Amino Transferase 8 Units/L (13-39); BUN/Creatinine Ratio 9 (6-26); Bilirubin,Total 0.2 mg/dL (0.3-1.0); Blood Urea Nitrogen 5 mg/dL (6-20); Calcium 7.9 mg/dL (8.6-10.3); Carbon Dioxide 14 mEq/L (23-29); Chloride 117 mEq/L (98-107); Glucose 168 mg/dL (70-105); Magnesium 1.4 mg/dL (1.6-2.6); Osmolality,Calculated 283 (280-300); Phosphorous 1.7 mg/dL (2.7-4.5); Potassium 3.3 mEq/L (3.5-5.1); Sodium 136 mEq/L (136-145); Total Protein 5.1 g/dL (6.4-8.9); eGFR For African Americans > 60; eGFR For Non-African Americans > 60
[2019-06-18] MEDS: Pantoprazole 40 MG VIAL IVP SCH (08:26)
[2019-06-18] MEDS: cefTRIAXone 1,000 MG in Water for inj. (sterile) 10 ML IVP SCH (08:26)
[2019-06-18 08:53] LABS: VBG HCO3 15 mEq/L (21-27); VBG PCO2 37 mmHg (41-51); VBG PH 7.23 pH Units (7.32-7.42); VBG PO2 95 mmHg (25-50)
[2019-06-18 09:12] LABS: BUN/Creatinine Ratio 7 (6-26); Blood Urea Nitrogen 4 mg/dL (6-20); Calcium 7.9 mg/dL (8.6-10.3); Carbon Dioxide 15 mEq/L (23-29); Chloride 115 mEq/L (98-107); Glucose 143 mg/dL (70-105); Osmolality,Calculated 281 (280-300); Potassium 3.7 mEq/L (3.5-5.1); Sodium 136 mEq/L (136-145); eGFR For African Americans > 60; eGFR For Non-African Americans > 60
[2019-06-18] MEDS ORDERED: Insulin DETEMIR 100 UNIT/ML X5UNITS SQ ONE (09:49)
[2019-06-18] MEDS: Insulin LISPRO 300 UNITS/3 ML VIAL SQ SCH ×4 (12:03→16:40)
[2019-06-18] MEDS: Insulin DETEMIR 100 UNIT/ML X5UNITS SQ SCH (20:16)
[2019-06-19 05:20] LABS: BUN/Creatinine Ratio 21 (6-26); Blood Urea Nitrogen 13 mg/dL (6-20); Calcium 8.6 mg/dL (8.6-10.3); Carbon Dioxide 20 mEq/L (23-29); Chloride 111 mEq/L (98-107); Glucose 137 mg/dL (70-105); Magnesium 1.8 mg/dL (1.6-2.6); Osmolality,Calculated 286 (280-300); Phosphorous 3.4 mg/dL (2.7-4.5); Potassium 3.3 mEq/L (3.5-5.1); Sodium 137 mEq/L (136-145); eGFR For African Americans > 60; eGFR For Non-African Americans > 60
[2019-06-19] MEDS: Insulin LISPRO 300 UNITS/3 ML VIAL SQ SCH ×2 (07:54→08:35)
[2019-06-19] MEDS: Insulin DETEMIR 100 UNIT/ML X5UNITS SQ SCH (09:18)
[2019-06-19 09:42] VITALS: BP 112/68
== END 2019-06-19 11:22 | disposition home or self-care (01) | DRG 420 ==
LOC: EMEROOARM 03:50 → ICNU 03:50 → 2NNU 17:00 → 3ANU 06-18 21:03
PROVIDERS: ADMIT Student in an Organized Health Care Education/Training Program; ATTEND Student in an Organized Health Care Education/Training Program

== ENCOUNTER 2019-06-27 12:40 | Observation (INO) ==
[2019-06-27] MEDS: 0.9 % Sodium Chloride 1,000 ML IVC SCH ×2 (13:32→14:39)
[2019-06-27] MEDS ORDERED: Ketorolac 15 MG/ML VIAL IVP ONE (13:33)
[2019-06-27 13:52] LABS: Alanine Aminotransferase 12 Units/L (7-52); Albumin 4.9 g/dL (3.5-5.7); Albumin/Globulin Ratio 1.3 (1.1-2.2); Alkaline Phosphatase 142 Units/L (34-104); Aspartate Amino Transferase 12 Units/L (13-39); BUN/Creatinine Ratio 12 (6-26); Bilirubin,Total 0.3 mg/dL (0.3-1.0); Blood Urea Nitrogen 14 mg/dL (6-20); Calcium 9.7 mg/dL (8.6-10.3); Carbon Dioxide 5 mEq/L (23-29); Chloride 102 mEq/L (98-107); Globulin 3.9 g/dL (2.4-3.5); Glucose 588 mg/dL (70-105); Magnesium 2.4 mg/dL (1.6-2.6); Osmolality,Calculated 302 (280-300); Phosphorous 5.8 mg/dL (2.7-4.5); Potassium 4.5 mEq/L (3.5-5.1); Sodium 132 mEq/L (136-145); Total Protein 8.8 g/dL (6.4-8.9); eGFR For African Americans > 60; eGFR For Non-African Americans 59
[2019-06-27 13:55] LABS: Bilirubin,Urine Negative (Negative); Blood,Urine Large (Negative); Clarity,Urine Clear (Clear); Color,Urine Yellow (Yellow); Glucose,Urine (UA) >=1000 mg/dL (Normal); Ketones,Urine >=160 mg/dL (Negative); Leukocyte Esterase,Urine Negative (Negative); Nitrite,Urine Negative (Negative); PH,Urine 5.5 pH Units (5.0-8.0); Protein,Urine 30 mg/dL (Neg-Trace); Specific Gravity,Urine 1.029 (1.010-1.025); Urobilinogen,Urine Normal (Normal)
[2019-06-27 13:58] LABS: Bacteria,Urine None Seen per hpf (None-Few); Hyaline Casts,Urine None Seen per lpf (None-Few); RBC,Urine 30-50 per hpf (0-3); Squamous Epithelial Cell,Urine Many per lpf (None-Few)
[2019-06-27] MEDS ORDERED: *HR* Dextrose 50 % in Water (Syg) 50 ML SYRINGE IVP PRN ×2 (14:07→14:19)
[2019-06-27] MEDS ORDERED: Sodium Bicarbonate 150 MEQ in D5% in Water 1,000 ML IVC SCH (14:15)
[2019-06-27] MEDS ORDERED: Insulin Human Regular 100 UNIT in 0.9 % Sodium Chloride 100 ML IVC SCH (14:15)
[2019-06-27 14:19] LABS: VBG HCO3 6 mEq/L (21-27); VBG PCO2 29 mmHg (41-51); VBG PH 6.88 pH Units (7.32-7.42); VBG PO2 103 mmHg (25-50)
[2019-06-27] MEDS ORDERED: Sodium Bicarbonate 50 MEQ/50 ML VIAL IVP ONE (14:21)
[2019-06-27 14:24] LABS: Basophils # 0.1 K/mcL (0.0-0.2); Basophils % 0.5 %; Hematocrit 46.9 % (35.3-44.9); Hemoglobin 14.6 g/dL (11.5-15.4); Immature Granulocytes % 1.3 % (0-4); Lymphocytes # 1.5 K/mcL (0.6-4.6); Lymphocytes % 7.5 %; Mean Corpuscular HGB Conc 31.1 g/dL (31.6-35.5); Mean Corpuscular Hemoglobin 28.6 pg (28.0-33.3); Mean Platelet Volume 10.1 fL (9.4-12.4); Monocytes # 0.9 K/mcL (0.0-1.3); Monocytes % 4.6 %; Neutrophils # 17.3 K/mcL (1.6-8.9); Platelet Count 602 K/mcL (140-400); Segmented Neutrophils % 86.1 %; White Blood Count 20.1 K/mcL (4.3-11.1)
[2019-06-27] MEDS ORDERED: Insulin Regular, Human 100 UNIT/ML IV PRN (14:40)
[2019-06-27] MEDS ORDERED: Insulin Regular, Human 100 UNIT/ML IV STA (14:40)
[2019-06-27] MEDS ORDERED: D5% in 0.45% NACL 1,000 ML IVC PRN (14:40)
[2019-06-27] MEDS ORDERED: 0.9 % Sodium Chloride 1,000 ML IVC ONE (14:43)
[2019-06-27] MEDS: Insulin Human Regular 100 UNIT in 0.9 % Sodium Chloride 100 ML IVC SCH (15:14)
[2019-06-27] MEDS: cefTRIAXone 1,000 MG in Water for inj. (sterile) 10 ML IVP SCH (15:35)
[2019-06-27 16:25] LABS: Amphetamine Screen,Urine Negative ng/mL (Cutoff=1000); Barbiturate Screen,Urine Negative ng/mL (Cutoff=200); Benzodiazepines Screen,Urine Negative ng/mL (Cutoff=200); Cannabinoid Screen,Urine Negative ng/mL (Cutoff = 50); Cocaine Screen,Urine Negative ng/mL (Cutoff= 300); Opiate Screen,Urine Negative ng/mL (Cutoff=300); Phencyclidine Screen,Urine Negative ng/mL (Cutoff=25)
[2019-06-27] MEDS: Sodium Bicarbonate 150 MEQ in 0.45 % Sodium Chloride 1,000 ML IVC SCH ×2 (16:33→16:38)
[2019-06-27] MEDS ORDERED: 0.9 % Sodium Chloride w KCl 20 MEQ/1,000 ML MLS IVC SCH (16:45)
[2019-06-27] MEDS ORDERED: 0.9 % Sodium Chloride 1,000 ML IVC SCH (16:45)
[2019-06-27 17:01] LABS: BUN/Creatinine Ratio 13 (6-26); Blood Urea Nitrogen 12 mg/dL (6-20); Calcium 8.4 mg/dL (8.6-10.3); Chloride 113 mEq/L (98-107); Glucose 361 mg/dL (70-105); Osmolality,Calculated 298 (280-300); Potassium 4.5 mEq/L (3.5-5.1); Sodium 137 mEq/L (136-145); Thyroid Stimulating Hormone 0.119 mcIU/mL (0.340-5.600); eGFR For African Americans > 60; eGFR For Non-African Americans > 60
[2019-06-27 17:29] LABS: VBG HCO3 11 mEq/L (21-27); VBG PCO2 23 mmHg (41-51); VBG PO2 206 mmHg (25-50)
[2019-06-27] MEDS: *HR* Heparin 5,000 UNIT/ML VIAL SQ SCH (17:52)
[2019-06-27] MEDS: D5% in 0.45% NACL w KCl 20 MEQ/1,000 ML MLS IVC PRN ×2 (17:52→22:15)
[2019-06-27] MEDS: 0.45 % Sodium Chloride w/KCl 20 MEQ/1,000 ML MLS IVC SCH ×5 (17:52→23:32)
[2019-06-27 17:53] LABS: BUN/Creatinine Ratio 13 (6-26); Blood Urea Nitrogen 11 mg/dL (6-20); Calcium 8.3 mg/dL (8.6-10.3); Carbon Dioxide 9 mEq/L (23-29); Chloride 115 mEq/L (98-107); Glucose 199 mg/dL (70-105); Osmolality,Calculated 293 (280-300); Potassium 3.3 mEq/L (3.5-5.1); Sodium 139 mEq/L (136-145); eGFR For African Americans > 60; eGFR For Non-African Americans > 60
[2019-06-27 20:00] LABS: BUN/Creatinine Ratio 14 (6-26); Blood Urea Nitrogen 11 mg/dL (6-20); Calcium 8.2 mg/dL (8.6-10.3); Carbon Dioxide 13 mEq/L (23-29); Chloride 117 mEq/L (98-107); Glucose 157 mg/dL (70-105); Osmolality,Calculated 291 (280-300); Sodium 139 mEq/L (136-145); eGFR For African Americans > 60; eGFR For Non-African Americans > 60
[2019-06-27 22:07] LABS: BUN/Creatinine Ratio 15 (6-26); Blood Urea Nitrogen 11 mg/dL (6-20); Carbon Dioxide 15 mEq/L (23-29); Chloride 115 mEq/L (98-107); Glucose 163 mg/dL (70-105); Osmolality,Calculated 287 (280-300); Potassium 3.5 mEq/L (3.5-5.1); Sodium 137 mEq/L (136-145); eGFR For African Americans > 60; eGFR For Non-African Americans > 60
[2019-06-27 23:30] LABS: Carbon Dioxide 4 mEq/L (23-29)
[2019-06-28 00:12] LABS: BUN/Creatinine Ratio 14 (6-26); Blood Urea Nitrogen 10 mg/dL (6-20); Calcium 7.9 mg/dL (8.6-10.3); Carbon Dioxide 15 mEq/L (23-29); Chloride 115 mEq/L (98-107); Glucose 198 mg/dL (70-105); Osmolality,Calculated 287 (280-300); Potassium 3.5 mEq/L (3.5-5.1); Sodium 136 mEq/L (136-145); eGFR For African Americans > 60; eGFR For Non-African Americans > 60
[2019-06-28] MEDS: 0.45 % Sodium Chloride w/KCl 20 MEQ/1,000 ML MLS IVC SCH ×5 (01:07→08:42)
[2019-06-28] MEDS: D5% in 0.45% NACL w KCl 20 MEQ/1,000 ML MLS IVC PRN ×5 (02:15→19:55)
[2019-06-28 02:39] LABS: BUN/Creatinine Ratio 16 (6-26); Blood Urea Nitrogen 10 mg/dL (6-20); Carbon Dioxide 16 mEq/L (23-29); Chloride 116 mEq/L (98-107); Glucose 125 mg/dL (70-105); Osmolality,Calculated 283 (280-300); Potassium 2.9 mEq/L (3.5-5.1); Sodium 136 mEq/L (136-145); eGFR For African Americans > 60; eGFR For Non-African Americans > 60
[2019-06-28] MEDS ORDERED: Potassium Chloride Elixir 20 MEQ/15 ML UDC PO ONE (02:49)
[2019-06-28 04:35] LABS: Basophils % 0.4 %; Eosinophils # 0.1 K/mcL (0.0-0.6); Eosinophils % 1.1 %; Hematocrit 32.6 % (35.3-44.9); Immature Granulocytes % 0.5 % (0-4); Lymphocytes # 2.9 K/mcL (0.6-4.6); Lymphocytes % 34.2 %; Mean Corpuscular HGB Conc 32.8 g/dL (31.6-35.5); Mean Corpuscular Hemoglobin 29.4 pg (28.0-33.3); Mean Corpuscular Volume 89.6 fL (83.0-100.0); Mean Platelet Volume 9.3 fL (9.4-12.4); Monocytes # 0.9 K/mcL (0.0-1.3); Monocytes % 10.1 %; Neutrophils # 4.6 K/mcL (1.6-8.9); Platelet Count 388 K/mcL (140-400); Red Blood Count 3.64 M/mcL (3.82-4.97); Red Cell Distribution Width 13.2 % (11.5-14.5); Segmented Neutrophils % 53.7 %
[2019-06-28 04:42] LABS: Hemoglobin 10.7 g/dL (11.5-15.4); White Blood Count 8.5 K/mcL (4.3-11.1)
[2019-06-28 04:50] LABS: BUN/Creatinine Ratio 14 (6-26); Blood Urea Nitrogen 9 mg/dL (6-20); Carbon Dioxide 16 mEq/L (23-29); Chloride 116 mEq/L (98-107); Glucose 135 mg/dL (70-105); Magnesium 1.7 mg/dL (1.6-2.6); Osmolality,Calculated 281 (280-300); Phosphorous 1.2 mg/dL (2.7-4.5); Potassium 4.3 mEq/L (3.5-5.1); Sodium 135 mEq/L (136-145); eGFR For African Americans > 60; eGFR For Non-African Americans > 60
[2019-06-28 05:12] LABS: Triiodothyronine (T3) Total 0.63 ng/mL (0.87-1.78)
[2019-06-28] MEDS: *HR* Heparin 5,000 UNIT/ML VIAL SQ SCH ×2 (05:14→17:03)
[2019-06-28 06:49] LABS: BUN/Creatinine Ratio 13 (6-26); Blood Urea Nitrogen 8 mg/dL (6-20); Calcium 7.9 mg/dL (8.6-10.3); Carbon Dioxide 16 mEq/L (23-29); Chloride 114 mEq/L (98-107); Glucose 158 mg/dL (70-105); Osmolality,Calculated 284 (280-300); Potassium 3.8 mEq/L (3.5-5.1); Sodium 136 mEq/L (136-145); eGFR For African Americans > 60; eGFR For Non-African Americans > 60
[2019-06-28 08:45] LABS: BUN/Creatinine Ratio 13 (6-26); Blood Urea Nitrogen 8 mg/dL (6-20); Calcium 7.9 mg/dL (8.6-10.3); Carbon Dioxide 15 mEq/L (23-29); Chloride 114 mEq/L (98-107); Glucose 176 mg/dL (70-105); Osmolality,Calculated 285 (280-300); Potassium 3.9 mEq/L (3.5-5.1); Sodium 136 mEq/L (136-145); eGFR For African Americans > 60; eGFR For Non-African Americans > 60
[2019-06-28 09:50] LABS: Magnesium 1.9 mg/dL (1.6-2.6); Phosphorous 2.5 mg/dL (2.7-4.5)
[2019-06-28 12:36] LABS: BUN/Creatinine Ratio 10 (6-26); Blood Urea Nitrogen 6 mg/dL (6-20); Calcium 7.8 mg/dL (8.6-10.3); Carbon Dioxide 16 mEq/L (23-29); Chloride 111 mEq/L (98-107); Glucose 184 mg/dL (70-105); Osmolality,Calculated 280 (280-300); Potassium 4.2 mEq/L (3.5-5.1); Sodium 134 mEq/L (136-145); eGFR For African Americans > 60; eGFR For Non-African Americans > 60
[2019-06-28] MEDS: cefTRIAXone 1,000 MG in Water for inj. (sterile) 10 ML IVP SCH (15:32)
[2019-06-28 16:36] LABS: Magnesium 1.9 mg/dL (1.6-2.6)
[2019-06-28] MEDS: Potassium Phosphate 44 MEQ in 0.9 % Sodium Chloride 250 ML IVPB PRN (17:03)
[2019-06-28] MEDS: Insulin Human Regular 100 UNIT in 0.9 % Sodium Chloride 100 ML IVC SCH (17:04)
[2019-06-28 18:53] LABS: BUN/Creatinine Ratio 7 (6-26); Blood Urea Nitrogen 4 mg/dL (6-20); Carbon Dioxide 13 mEq/L (23-29); Chloride 117 mEq/L (98-107); Glucose 147 mg/dL (70-105); Osmolality,Calculated 284 (280-300); Sodium 137 mEq/L (136-145); eGFR For African Americans > 60; eGFR For Non-African Americans > 60
[2019-06-28 22:12] LABS: BUN/Creatinine Ratio 6 (6-26); Blood Urea Nitrogen 3 mg/dL (6-20); Calcium 7.6 mg/dL (8.6-10.3); Carbon Dioxide 16 mEq/L (23-29); Chloride 111 mEq/L (98-107); Glucose 155 mg/dL (70-105); Osmolality,Calculated 280 (280-300); Potassium 3.9 mEq/L (3.5-5.1); Sodium 135 mEq/L (136-145); eGFR For African Americans > 60; eGFR For Non-African Americans > 60
[2019-06-29 02:41] LABS: VBG Ionized Calcium 1.16 mmol/L (1.15-1.35)
[2019-06-29 03:04] LABS: BUN/Creatinine Ratio 4 (6-26); Blood Urea Nitrogen 2 mg/dL (6-20); Calcium 7.7 mg/dL (8.6-10.3); Carbon Dioxide 16 mEq/L (23-29); Chloride 114 mEq/L (98-107); Glucose 94 mg/dL (70-105); Osmolality,Calculated 276 (280-300); Phosphorous 2.3 mg/dL (2.7-4.5); Potassium 3.9 mEq/L (3.5-5.1); Sodium 135 mEq/L (136-145); eGFR For African Americans > 60; eGFR For Non-African Americans > 60
[2019-06-29] MEDS: Potassium Phosphate 44 MEQ in 0.9 % Sodium Chloride 250 ML IVPB PRN (03:40)
[2019-06-29 04:40] LABS: Basophils % 0.7 %; Eosinophils # 0.2 K/mcL (0.0-0.6); Hematocrit 33.8 % (35.3-44.9); Immature Granulocytes % 0.3 % (0-4); Lymphocytes # 2.3 K/mcL (0.6-4.6); Lymphocytes % 39.3 %; Mean Corpuscular HGB Conc 32.5 g/dL (31.6-35.5); Mean Corpuscular Hemoglobin 29.3 pg (28.0-33.3); Mean Corpuscular Volume 90.1 fL (83.0-100.0); Mean Platelet Volume 9.3 fL (9.4-12.4); Monocytes # 0.7 K/mcL (0.0-1.3); Monocytes % 11.1 %; Neutrophils # 2.7 K/mcL (1.6-8.9); Platelet Count 325 K/mcL (140-400); Red Blood Count 3.75 M/mcL (3.82-4.97); Red Cell Distribution Width 13.3 % (11.5-14.5); Segmented Neutrophils % 45.6 %
[2019-06-29 05:01] LABS: BUN/Creatinine Ratio 4 (6-26); Blood Urea Nitrogen 2 mg/dL (6-20); Calcium 7.8 mg/dL (8.6-10.3); Carbon Dioxide 16 mEq/L (23-29); Chloride 114 mEq/L (98-107); Glucose 103 mg/dL (70-105); Osmolality,Calculated 278 (280-300); Potassium 3.9 mEq/L (3.5-5.1); Sodium 136 mEq/L (136-145); eGFR For African Americans > 60; eGFR For Non-African Americans > 60
[2019-06-29] MEDS: D5% in 0.45% NACL w KCl 20 MEQ/1,000 ML MLS IVC PRN ×3 (05:10→09:32)
[2019-06-29] MEDS: *HR* Heparin 5,000 UNIT/ML VIAL SQ SCH ×2 (05:17→16:47)
[2019-06-29] MEDS: Calcium Gluconate 1gm/50mL 1 GM/50 ML BAG IVPB SCH ×2 (06:02→06:28)
[2019-06-29 09:01] LABS: BUN/Creatinine Ratio 4 (6-26); Blood Urea Nitrogen 2 mg/dL (6-20); Calcium 8.4 mg/dL (8.6-10.3); Carbon Dioxide 16 mEq/L (23-29); Chloride 112 mEq/L (98-107); Glucose 149 mg/dL (70-105); Osmolality,Calculated 283 (280-300); Potassium 4.2 mEq/L (3.5-5.1); Sodium 137 mEq/L (136-145); eGFR For African Americans > 60; eGFR For Non-African Americans > 60
[2019-06-29 11:26] LABS: Potassium,Urine 15.5 mEq/L; Sodium, Urine 138.9 mEq/L
[2019-06-29 11:50] LABS: Blood Urea Nitrogen < 2 mg/dL (6-20); Calcium 8.3 mg/dL (8.6-10.3); Carbon Dioxide 18 mEq/L (23-29); Chloride 111 mEq/L (98-107); Glucose 73 mg/dL (70-105); Potassium 3.7 mEq/L (3.5-5.1); Sodium 137 mEq/L (136-145); eGFR For African Americans > 60; eGFR For Non-African Americans > 60
[2019-06-29] MEDS ORDERED: Insulin DETEMIR 100 UNIT/ML X5UNITS SQ ONE (12:00)
[2019-06-29] MEDS ORDERED: *HR* Dextrose 50 % in Water (Syg) 50 ML SYRINGE IVP PRN (13:11)
[2019-06-29] MEDS: Sodium Bicarbonate 75 MEQ in 0.45 % Sodium Chloride 1,000 ML IVC SCH (15:32)
[2019-06-29] MEDS ORDERED: cefTRIAXone 1,000 MG in Water for inj. (sterile) 10 ML IVP ONE (16:00)
[2019-06-29] MEDS ORDERED: Insulin LISPRO 300 UNITS/3 ML VIAL SQ SCH ×3 (16:30→21:00)
[2019-06-29] MEDS: Insulin LISPRO 300 UNITS/3 ML VIAL SQ SCH (16:46)
[2019-06-29] MEDS ORDERED: Insulin DETEMIR 100 UNIT/ML X5UNITS SQ SCH ×2 (21:00)
[2019-06-30] MEDS: Sodium Bicarbonate 75 MEQ in 0.45 % Sodium Chloride 1,000 ML IVC SCH (02:25)
[2019-06-30 03:48] LABS: Basophils % 0.4 %; Eosinophils # 0.2 K/mcL (0.0-0.6); Eosinophils % 3.4 %; Hemoglobin 11.2 g/dL (11.5-15.4); Immature Granulocytes % 0.2 % (0-4); Lymphocytes # 2.1 K/mcL (0.6-4.6); Lymphocytes % 41.4 %; Mean Corpuscular Hemoglobin 28.5 pg (28.0-33.3); Mean Corpuscular Volume 89.1 fL (83.0-100.0); Mean Platelet Volume 9.6 fL (9.4-12.4); Monocytes # 0.5 K/mcL (0.0-1.3); Monocytes % 9.3 %; Neutrophils # 2.2 K/mcL (1.6-8.9); Platelet Count 303 K/mcL (140-400); Red Blood Count 3.93 M/mcL (3.82-4.97); Segmented Neutrophils % 45.3 %
[2019-06-30 04:06] LABS: BUN/Creatinine Ratio 14 (6-26); Blood Urea Nitrogen 8 mg/dL (6-20); Calcium 8.3 mg/dL (8.6-10.3); Carbon Dioxide 22 mEq/L (23-29); Chloride 106 mEq/L (98-107); Glucose 284 mg/dL (70-105); Osmolality,Calculated 289 (280-300); Sodium 135 mEq/L (136-145); eGFR For African Americans > 60; eGFR For Non-African Americans > 60
[2019-06-30] MEDS: *HR* Heparin 5,000 UNIT/ML VIAL SQ SCH (05:26)
[2019-06-30 07:24] VITALS: BP 104/72
[2019-06-30] MEDS: Insulin LISPRO 300 UNITS/3 ML VIAL SQ SCH ×2 (09:14→12:09)
== END 2019-06-30 12:18 | disposition home or self-care (01) ==
LOC: ICNU 12:40 → EMEROOARM 12:40 → SUATTDRO 15:40 → ICNU 16:10 → 3ANU 06-29 15:49
PROVIDERS: ADMIT Internal Medicine; ATTEND Internal Medicine

== ENCOUNTER 2019-07-24 08:59 | Inpatient (IN) ==
[2019-07-24] MEDS ORDERED: Pantoprazole 40 MG VIAL IVP ONE (09:12)
[2019-07-24] MEDS ORDERED: Ondansetron 4 MG/2 ML VIAL IVP ONE (09:12)
[2019-07-24 10:21] LABS: INR 0.8; Prothrombin Time 9.6 Seconds (9.4-12.1)
[2019-07-24 10:24] LABS: Activated Partial Thrombo Time 30.2 Seconds (26.0-36.0)
[2019-07-24 10:43] LABS: Bilirubin,Urine Negative (Negative); Blood,Urine Small (Negative); Clarity,Urine Clear (Clear); Color,Urine Yellow (Yellow); Glucose,Urine (UA) >=1000 mg/dL (Normal); Ketones,Urine >=160 mg/dL (Negative); Leukocyte Esterase,Urine Negative (Negative); Nitrite,Urine Negative (Negative); PH,Urine 5.5 pH Units (5.0-8.0); Protein,Urine 30 mg/dL (Neg-Trace); Specific Gravity,Urine 1.028 (1.010-1.025); Urobilinogen,Urine Normal (Normal)
[2019-07-24 10:45] LABS: Bacteria,Urine None Seen per hpf (None-Few); Hyaline Casts,Urine None Seen per lpf (None-Few); RBC,Urine 0-3 per hpf (0-3); Squamous Epithelial Cell,Urine Many per lpf (None-Few); WBC,Urine 0-3 per hpf (0-3)
[2019-07-24 10:50] LABS: Basophils # 0.2 K/mcL (0.0-0.2); Basophils % 0.8 %; Eosinophils # 0.2 K/mcL (0.0-0.6); Eosinophils % 0.9 %; Hematocrit 46.5 % (35.3-44.9); Hemoglobin 13.9 g/dL (11.5-15.4); Immature Granulocytes % 2.9 % (0-4); Lymphocytes # 5.3 K/mcL (0.6-4.6); Lymphocytes % 25.4 %; Mean Corpuscular HGB Conc 29.9 g/dL (31.6-35.5); Mean Corpuscular Volume 97.1 fL (83.0-100.0); Mean Platelet Volume 9.7 fL (9.4-12.4); Monocytes % 4.7 %; Neutrophils # 13.5 K/mcL (1.6-8.9); Platelet Count 614 K/mcL (140-400); Red Blood Count 4.79 M/mcL (3.82-4.97); Red Cell Distribution Width 12.5 % (11.5-14.5); Segmented Neutrophils % 65.3 %; White Blood Count 20.7 K/mcL (4.3-11.1)
[2019-07-24 10:56] LABS: Amphetamine Screen,Urine Negative ng/mL (Cutoff=1000); Barbiturate Screen,Urine Negative ng/mL (Cutoff=200); Benzodiazepines Screen,Urine Negative ng/mL (Cutoff=200); Cannabinoid Screen,Urine Negative ng/mL (Cutoff = 50); Cocaine Screen,Urine Negative ng/mL (Cutoff= 300); Opiate Screen,Urine Negative ng/mL (Cutoff=300); Phencyclidine Screen,Urine Negative ng/mL (Cutoff=25)
[2019-07-24 11:15] LABS: Alanine Aminotransferase 57 Units/L (7-52); Albumin 4.4 g/dL (3.5-5.7); Albumin/Globulin Ratio 1.3 (1.1-2.2); Alkaline Phosphatase 143 Units/L (34-104); Aspartate Amino Transferase 19 Units/L (13-39); BUN/Creatinine Ratio 23 (6-26); Bilirubin,Total 0.2 mg/dL (0.3-1.0); Blood Urea Nitrogen 25 mg/dL (6-20); Calcium 8.9 mg/dL (8.6-10.3); Carbon Dioxide < 4 mEq/L (23-29); Chloride 101 mEq/L (98-107); Globulin 3.4 g/dL (2.4-3.5); Glucose 702 mg/dL (70-105); Lipase 12 Units/L (11-82); Osmolality,Calculated 318 (280-300); Potassium 4.7 mEq/L (3.5-5.1); Sodium 135 mEq/L (136-145); Total Protein 7.8 g/dL (6.4-8.9); eGFR For African Americans > 60; eGFR For Non-African Americans > 60
[2019-07-24] MEDS ORDERED: *HR* Dextrose 50 % in Water (Syg) 50 ML SYRINGE IVP PRN ×2 (11:20→13:27)
[2019-07-24] MEDS ORDERED: 0.9 % Sodium Chloride 1,000 ML IVC ONE (11:21)
[2019-07-24 12:04] LABS: ABG Base Excess -30 mEq/L (-2 to 3); ABG Chloride 116 mEq/L (98-107); ABG Glucose > 700 mg/dL (60-95); ABG HCO3 4 mEq/L (21-27); ABG Ionized Calcium 1.23 mmol/L (1.15-1.35); ABG Oxygen Saturation 96 % (95-98); ABG PCO2 22 mmHg (35-45); ABG PH 6.83 pH Units (7.32-7.45); ABG PO2 145 mmHg (85-104); ABG TCO2 < 5 mEq/L (20-26)
[2019-07-24] MEDS ORDERED: Morphine Sulfate 2 MG/ML SYRINGE IVP ONE (12:10)
[2019-07-24] MEDS ORDERED: Sodium Bicarbonate 50 MEQ/50 ML VIAL ONE ×2 (12:21→12:26)
[2019-07-24] MEDS ORDERED: Sodium Bicarbonate 50 MEQ/50 ML VIAL IVP ONE ×2 (12:30→15:54)
[2019-07-24] MEDS: Insulin Human Regular 100 UNIT in 0.9 % Sodium Chloride 100 ML IVC SCH ×2 (12:32→22:49)
[2019-07-24] MEDS ORDERED: D5% in 0.45% NACL 1,000 ML IVC PRN (13:27)
[2019-07-24] MEDS ORDERED: Naloxone 0.4 MG/ML INJ IVP PRN (13:27)
[2019-07-24] MEDS ORDERED: Ondansetron 4 MG/2 ML VIAL IVP PRN (13:27)
[2019-07-24] MEDS ORDERED: Insulin Regular, Human 100 UNIT/ML IV PRN (13:27)
[2019-07-24] MEDS ORDERED: 0.45 % Sodium Chloride w/KCl 20 MEQ/1,000 ML MLS IVC SCH (13:30)
[2019-07-24] MEDS: 0.9 % Sodium Chloride 1,000 ML IVC SCH ×2 (13:45→13:53)
[2019-07-24 15:56] LABS: VBG HCO3 5 mEq/L (21-27); VBG PCO2 33 mmHg (41-51); VBG PH 6.77 pH Units (7.32-7.42); VBG PO2 122 mmHg (25-50)
[2019-07-24] MEDS ORDERED: 0.9 % Sodium Chloride w KCl 20 MEQ/1,000 ML MLS IVC SCH (16:15)
[2019-07-24 16:33] LABS: VBG HCO3 5 mEq/L (21-27); VBG PCO2 27 mmHg (41-51); VBG PH 6.83 pH Units (7.32-7.42); VBG PO2 112 mmHg (25-50)
[2019-07-24 17:00] LABS: BUN/Creatinine Ratio 20 (6-26); Blood Urea Nitrogen 22 mg/dL (6-20); Calcium 8.3 mg/dL (8.6-10.3); Carbon Dioxide < 4 mEq/L (23-29); Chloride 113 mEq/L (98-107); Glucose 444 mg/dL (70-105); Magnesium 2.2 mg/dL (1.6-2.6); Osmolality,Calculated 321 (280-300); Phosphorous 4.6 mg/dL (2.7-4.5); Potassium 4.5 mEq/L (3.5-5.1); Sodium 144 mEq/L (136-145); eGFR For African Americans > 60; eGFR For Non-African Americans > 60
[2019-07-24] MEDS ORDERED: Sodium Bicarbonate 150 MEQ in D5% in Water 1,000 ML IVC SCH (17:00)
[2019-07-24] MEDS: 0.45 % Sodium Chloride w/KCl 20 MEQ/1,000 ML MLS IVC SCH ×4 (17:15→23:47)
[2019-07-24] MEDS: *HR* Heparin 5,000 UNIT/ML VIAL SQ SCH (20:44)
[2019-07-24 21:32] LABS: VBG HCO3 12 mEq/L (21-27); VBG PCO2 30 mmHg (41-51); VBG PO2 190 mmHg (25-50)
[2019-07-24 21:33] LABS: BUN/Creatinine Ratio 17 (6-26); Blood Urea Nitrogen 16 mg/dL (6-20); Calcium 8.1 mg/dL (8.6-10.3); Carbon Dioxide 9 mEq/L (23-29); Chloride 115 mEq/L (98-107); Glucose 233 mg/dL (70-105); Magnesium 1.8 mg/dL (1.6-2.6); Osmolality,Calculated 307 (280-300); Phosphorous 1.1 mg/dL (2.7-4.5); Potassium 3.9 mEq/L (3.5-5.1); Sodium 144 mEq/L (136-145); eGFR For African Americans > 60; eGFR For Non-African Americans > 60
[2019-07-24] MEDS ORDERED: Potassium Phosphate 44 MEQ in 0.9 % Sodium Chloride 250 ML IVPB ONE (21:51)
[2019-07-24] MEDS ORDERED: Calcium Gluconate 1gm/50mL 1 GM/50 ML BAG IVPB SCH (22:00)
[2019-07-24] MEDS ORDERED: Calcium Gluconate 1,000 MG/10 ML VIAL ONE (23:50)
[2019-07-25] MEDS: Calcium Gluconate 1gm/50mL 1 GM/50 ML BAG IVPB SCH ×6 (00:33→06:57)
[2019-07-25] MEDS: D5% in 0.45% NACL w KCl 20 MEQ/1,000 ML MLS IVC PRN ×2 (00:42→04:48)
[2019-07-25] MEDS: 0.45 % Sodium Chloride w/KCl 20 MEQ/1,000 ML MLS IVC SCH ×3 (00:46→00:49)
[2019-07-25] MEDS: Insulin Human Regular 100 UNIT in 0.9 % Sodium Chloride 100 ML IVC SCH ×2 (00:47→17:06)
[2019-07-25 01:07] LABS: VBG HCO3 16 mEq/L (21-27); VBG PCO2 34 mmHg (41-51); VBG PH 7.29 pH Units (7.32-7.42); VBG PO2 160 mmHg (25-50)
[2019-07-25 01:32] LABS: BUN/Creatinine Ratio 19 (6-26); Blood Urea Nitrogen 14 mg/dL (6-20); Calcium 7.8 mg/dL (8.6-10.3); Carbon Dioxide 14 mEq/L (23-29); Chloride 114 mEq/L (98-107); Glucose 82 mg/dL (70-105); Magnesium 2.2 mg/dL (1.6-2.6); Osmolality,Calculated 290 (280-300); Potassium 3.7 mEq/L (3.5-5.1); Sodium 140 mEq/L (136-145); eGFR For African Americans > 60; eGFR For Non-African Americans > 60
[2019-07-25] MEDS: *HR* Heparin 5,000 UNIT/ML VIAL SQ SCH ×3 (03:34→23:34)
[2019-07-25 05:03] LABS: VBG HCO3 17 mEq/L (21-27); VBG PCO2 37 mmHg (41-51); VBG PH 7.27 pH Units (7.32-7.42); VBG PO2 224 mmHg (25-50)
[2019-07-25 05:24] LABS: Estimated Average Glucose 349 mg/dl
[2019-07-25 05:36] LABS: BUN/Creatinine Ratio 15 (6-26); Blood Urea Nitrogen 11 mg/dL (6-20); Calcium 8.3 mg/dL (8.6-10.3); Carbon Dioxide 16 mEq/L (23-29); Chloride 111 mEq/L (98-107); Glucose 165 mg/dL (70-105); Magnesium 1.9 mg/dL (1.6-2.6); Osmolality,Calculated 287 (280-300); Potassium 3.5 mEq/L (3.5-5.1); Sodium 137 mEq/L (136-145); eGFR For African Americans > 60; eGFR For Non-African Americans > 60
[2019-07-25 05:59] LABS: Basophils % 0.3 %; Eosinophils % 0.1 %; Hematocrit 31.3 % (35.3-44.9); Hemoglobin 10.2 g/dL (11.5-15.4); Immature Granulocytes % 1.1 % (0-4); Lymphocytes # 1.8 K/mcL (0.6-4.6); Mean Corpuscular HGB Conc 32.6 g/dL (31.6-35.5); Mean Corpuscular Hemoglobin 29.5 pg (28.0-33.3); Mean Corpuscular Volume 90.5 fL (83.0-100.0); Mean Platelet Volume 9.2 fL (9.4-12.4); Monocytes # 1.3 K/mcL (0.0-1.3); Monocytes % 8.7 %; Neutrophils # 11.5 K/mcL (1.6-8.9); Platelet Count 337 K/mcL (140-400); Red Blood Count 3.46 M/mcL (3.82-4.97); Segmented Neutrophils % 77.8 %; White Blood Count 14.8 K/mcL (4.3-11.1)
[2019-07-25 09:36] LABS: BUN/Creatinine Ratio 11 (6-26); Blood Urea Nitrogen 8 mg/dL (6-20); Calcium 9.1 mg/dL (8.6-10.3); Carbon Dioxide 18 mEq/L (23-29); Chloride 111 mEq/L (98-107); Glucose 168 mg/dL (70-105); Osmolality,Calculated 282 (280-300); Potassium 3.5 mEq/L (3.5-5.1); Sodium 135 mEq/L (136-145); eGFR For African Americans > 60; eGFR For Non-African Americans > 60
[2019-07-25] MEDS ORDERED: Insulin DETEMIR 100 UNIT/ML X5UNITS SQ SCH ×2 (11:00→21:00)
[2019-07-25] MEDS ORDERED: *HR* Dextrose 50 % in Water (Syg) 50 ML SYRINGE IVP PRN ×2 (11:01→18:41)
[2019-07-25] MEDS ORDERED: Dextrose Gel 15 GM/37.5 ML TUBE PO PRN ×4 (11:01→18:41)
[2019-07-25] MEDS ORDERED: D5% in Water 1,000 ML IVC PRN ×2 (11:01→18:41)
[2019-07-25] MEDS: Insulin LISPRO 300 UNITS/3 ML VIAL SQ SCH ×2 (12:21→17:07)
[2019-07-25 17:22] LABS: BUN/Creatinine Ratio 10 (6-26); Blood Urea Nitrogen 8 mg/dL (6-20); Calcium 8.6 mg/dL (8.6-10.3); Carbon Dioxide 17 mEq/L (23-29); Chloride 105 mEq/L (98-107); Glucose 381 mg/dL (70-105); Osmolality,Calculated 288 (280-300); Potassium 3.5 mEq/L (3.5-5.1); Sodium 132 mEq/L (136-145); eGFR For African Americans > 60; eGFR For Non-African Americans > 60
[2019-07-25] MEDS ORDERED: Naloxone 0.4 MG/ML INJ IVP PRN (18:41)
[2019-07-25] MEDS ORDERED: Ondansetron 4 MG/2 ML VIAL IVP PRN (18:41)
[2019-07-25] MEDS: Insulin DETEMIR 100 UNIT/ML X5UNITS SQ SCH (21:40)
[2019-07-26] MEDS: *HR* Heparin 5,000 UNIT/ML VIAL SQ SCH ×2 (05:40→13:42)
[2019-07-26] MEDS: Insulin DETEMIR 100 UNIT/ML X5UNITS SQ SCH (09:12)
[2019-07-26] MEDS: Insulin LISPRO 300 UNITS/3 ML VIAL SQ SCH ×3 (09:12→16:43)
[2019-07-26 09:58] LABS: Hematocrit 35.3 % (35.3-44.9); Hemoglobin 11.5 g/dL (11.5-15.4); Mean Corpuscular HGB Conc 32.6 g/dL (31.6-35.5); Mean Corpuscular Hemoglobin 28.8 pg (28.0-33.3); Mean Corpuscular Volume 88.5 fL (83.0-100.0); Mean Platelet Volume 9.3 fL (9.4-12.4); Platelet Count 284 K/mcL (140-400); Red Blood Count 3.99 M/mcL (3.82-4.97); Red Cell Distribution Width 13.1 % (11.5-14.5)
[2019-07-26 10:14] LABS: White Blood Count 6.2 K/mcL (4.3-11.1)
[2019-07-26 10:18] LABS: BUN/Creatinine Ratio 6 (6-26); Blood Urea Nitrogen 4 mg/dL (6-20); Calcium 9.2 mg/dL (8.6-10.3); Carbon Dioxide 22 mEq/L (23-29); Chloride 103 mEq/L (98-107); Glucose 240 mg/dL (70-105); Magnesium 1.8 mg/dL (1.6-2.6); Osmolality,Calculated 289 (280-300); Potassium 2.7 mEq/L (3.5-5.1); Sodium 137 mEq/L (136-145); eGFR For African Americans > 60; eGFR For Non-African Americans > 60
[2019-07-26] MEDS: Potassium Chloride Elixir 20 MEQ/15 ML UDC PO SCH ×2 (13:41→16:43)
[2019-07-26 16:23] VITALS: BP 113/67
== END 2019-07-26 17:51 | disposition home or self-care (01) | DRG 420 ==
LOC: EMEROOARM 08:59 → ICNU 08:59 → SUATTDRO 13:27 → 2ANU 07-25 18:40
PROVIDERS: ADMIT Internal Medicine; ATTEND Internal Medicine

== ENCOUNTER 2019-08-22 10:01 | Inpatient (IN) ==
[2019-08-22] MEDS ORDERED: *HR* Dextrose 50 % in Water (Syg) 50 ML SYRINGE IVP PRN ×2 (10:05→13:02)
[2019-08-22] MEDS ORDERED: Ondansetron 4 MG/2 ML VIAL IVP ONE (10:13)
[2019-08-22] MEDS: 0.9 % Sodium Chloride 1,000 ML IVC SCH ×2 (10:27→11:33)
[2019-08-22 10:48] LABS: VBG HCO3 5 mEq/L (21-27); VBG PCO2 19 mmHg (41-51); VBG PH 7.04 pH Units (7.32-7.42); VBG PO2 248 mmHg (25-50)
[2019-08-22 10:49] LABS: Basophils # 0.1 K/mcL (0.0-0.2); Basophils % 0.5 %; Eosinophils # 0.2 K/mcL (0.0-0.6); Eosinophils % 1.2 %; Hematocrit 44.3 % (35.3-44.9); Hemoglobin 13.3 g/dL (11.5-15.4); Immature Granulocytes % 0.7 % (0-4); Lymphocytes # 2.6 K/mcL (0.6-4.6); Lymphocytes % 17.2 %; Mean Corpuscular Hemoglobin 29.7 pg (28.0-33.3); Mean Platelet Volume 9.9 fL (9.4-12.4); Monocytes # 0.9 K/mcL (0.0-1.3); Monocytes % 5.9 %; Neutrophils # 11.2 K/mcL (1.6-8.9); Platelet Count 595 K/mcL (140-400); Red Blood Count 4.48 M/mcL (3.82-4.97); Red Cell Distribution Width 13.7 % (11.5-14.5); Segmented Neutrophils % 74.5 %
[2019-08-22 10:53] LABS: Mean Corpuscular Volume 98.9 fL (83.0-100.0)
[2019-08-22] MEDS ORDERED: cefTRIAXone 2,000 MG in Water for inj. (sterile) 20 ML IVP ONE (10:58)
[2019-08-22 11:24] LABS: Bilirubin,Urine Negative (Negative); Blood,Urine Large (Negative); Clarity,Urine Clear (Clear); Color,Urine Yellow (Yellow); Glucose,Urine (UA) >=1000 mg/dL (Normal); Ketones,Urine >=160 mg/dL (Negative); Leukocyte Esterase,Urine Negative (Negative); Nitrite,Urine Negative (Negative); Protein,Urine 30 mg/dL (Neg-Trace); Specific Gravity,Urine 1.028 (1.010-1.025); Urobilinogen,Urine Normal (Normal)
[2019-08-22 11:25] LABS: Alanine Aminotransferase 20 Units/L (7-52); Albumin 4.4 g/dL (3.5-5.7); Albumin/Globulin Ratio 1.4 (1.1-2.2); Alkaline Phosphatase 116 Units/L (34-104); Aspartate Amino Transferase 18 Units/L (13-39); BUN/Creatinine Ratio 19 (6-26); Bilirubin,Total 0.3 mg/dL (0.3-1.0); Blood Urea Nitrogen 19 mg/dL (6-20); Calcium 9.4 mg/dL (8.6-10.3); Carbon Dioxide 4 mEq/L (23-29); Chloride 96 mEq/L (98-107); Ethanol < 10 mg/dL (Less than 10); Globulin 3.1 g/dL (2.4-3.5); Glucose 720 mg/dL (70-105); Magnesium 2.3 mg/dL (1.6-2.6); Osmolality,Calculated 311 (280-300); Potassium 3.9 mEq/L (3.5-5.1); Sodium 132 mEq/L (136-145); Total Protein 7.5 g/dL (6.4-8.9); Troponin I 0.03 ng/mL (< 0.04); eGFR For African Americans > 60; eGFR For Non-African Americans > 60
[2019-08-22 11:27] LABS: Bacteria,Urine None Seen per hpf (None-Few); Hyaline Casts,Urine None Seen per lpf (None-Few); RBC,Urine TNTC per hpf (0-3); Squamous Epithelial Cell,Urine Many per lpf (None-Few); WBC,Urine 0-3 per hpf (0-3)
[2019-08-22 11:35] LABS: Thyroid Stimulating Hormone 0.491 mcIU/mL (0.340-5.600)
[2019-08-22] MEDS: Insulin Human Regular 100 UNIT in 0.9 % Sodium Chloride 100 ML IVC SCH (11:59)
[2019-08-22] MEDS ORDERED: *HR* Promethazine 25 MG/ML VIAL IVP ONE (12:20)
[2019-08-22] MEDS ORDERED: 0.9 % Sodium Chloride 1,000 ML IVC ONE (12:22)
[2019-08-22] MEDS ORDERED: Ringers Solution, Lactated 1,000 ML IVC ONE (12:23)
[2019-08-22] MEDS ORDERED: Promethazine 25 MG in 0.9 % Sodium Chloride 50 ML IVPB ONE (12:30)
[2019-08-22] MEDS ORDERED: Insulin Regular, Human 100 UNIT/ML IV PRN (13:02)
[2019-08-22] MEDS: 0.45 % Sodium Chloride w/KCl 20 MEQ/1,000 ML MLS IVC SCH ×5 (14:14→21:40)
[2019-08-22 14:36] LABS: VBG HCO3 5 mEq/L (21-27); VBG PCO2 24 mmHg (41-51); VBG PH 6.88 pH Units (7.32-7.42); VBG PO2 215 mmHg (25-50)
[2019-08-22 14:54] LABS: Estimated Average Glucose 312 mg/dl
[2019-08-22 14:55] LABS: BUN/Creatinine Ratio 17 (6-26); Blood Urea Nitrogen 18 mg/dL (6-20); Calcium 8.4 mg/dL (8.6-10.3); Carbon Dioxide 4 mEq/L (23-29); Chloride 106 mEq/L (98-107); Glucose 453 mg/dL (70-105); Osmolality,Calculated 314 (280-300); Phosphorous 4.4 mg/dL (2.7-4.5); Sodium 141 mEq/L (136-145); eGFR For African Americans > 60; eGFR For Non-African Americans > 60
[2019-08-22] MEDS: D5% in 0.45% NACL w KCl 20 MEQ/1,000 ML MLS IVC SCH ×2 (16:30→21:43)
[2019-08-22] MEDS: *HR* Heparin 5,000 UNIT/ML VIAL SQ SCH (17:14)
[2019-08-22 17:55] LABS: VBG HCO3 12 mEq/L (21-27); VBG PCO2 25 mmHg (41-51); VBG PH 7.27 pH Units (7.32-7.42); VBG PO2 225 mmHg (25-50)
[2019-08-22 18:17] LABS: BUN/Creatinine Ratio 15 (6-26); Blood Urea Nitrogen 13 mg/dL (6-20); Calcium 7.9 mg/dL (8.6-10.3); Carbon Dioxide 9 mEq/L (23-29); Chloride 112 mEq/L (98-107); Glucose 200 mg/dL (70-105); Osmolality,Calculated 298 (280-300); Phosphorous 1.4 mg/dL (2.7-4.5); Potassium 3.8 mEq/L (3.5-5.1); Sodium 141 mEq/L (136-145); eGFR For African Americans > 60; eGFR For Non-African Americans > 60
[2019-08-22] MEDS ORDERED: Calcium Gluconate 1gm/50mL 1 GM/50 ML BAG IVPB PRN (18:32)
[2019-08-22 21:33] LABS: VBG HCO3 16 mEq/L (21-27); VBG PCO2 32 mmHg (41-51); VBG PH 7.32 pH Units (7.32-7.42); VBG PO2 142 mmHg (25-50)
[2019-08-22 21:48] LABS: BUN/Creatinine Ratio 16 (6-26); Blood Urea Nitrogen 13 mg/dL (6-20); Calcium 8.2 mg/dL (8.6-10.3); Carbon Dioxide 14 mEq/L (23-29); Chloride 117 mEq/L (98-107); Glucose 114 mg/dL (70-105); Osmolality,Calculated 297 (280-300); Potassium 3.4 mEq/L (3.5-5.1); Sodium 143 mEq/L (136-145); eGFR For African Americans > 60; eGFR For Non-African Americans > 60
[2019-08-23] MEDS: *HR* Heparin 5,000 UNIT/ML VIAL SQ SCH ×4 (00:24→23:00)
[2019-08-23 01:46] LABS: VBG HCO3 16 mEq/L (21-27); VBG PCO2 31 mmHg (41-51); VBG PH 7.32 pH Units (7.32-7.42); VBG PO2 133 mmHg (25-50)
[2019-08-23 02:07] LABS: BUN/Creatinine Ratio 16 (6-26); Blood Urea Nitrogen 12 mg/dL (6-20); Calcium 7.7 mg/dL (8.6-10.3); Carbon Dioxide 14 mEq/L (23-29); Chloride 114 mEq/L (98-107); Glucose 105 mg/dL (70-105); Osmolality,Calculated 292 (280-300); Phosphorous 4.2 mg/dL (2.7-4.5); Potassium 3.5 mEq/L (3.5-5.1); Sodium 141 mEq/L (136-145); eGFR For African Americans > 60; eGFR For Non-African Americans > 60
[2019-08-23] MEDS: D5% in 0.45% NACL w KCl 20 MEQ/1,000 ML MLS IVC SCH ×2 (02:48→08:02)
[2019-08-23 06:17] LABS: VBG HCO3 13 mEq/L (21-27); VBG PCO2 17 mmHg (41-51); VBG PH 7.49 pH Units (7.32-7.42); VBG PO2 216 mmHg (25-50)
[2019-08-23] MEDS: 0.45 % Sodium Chloride w/KCl 20 MEQ/1,000 ML MLS IVC SCH ×2 (06:28→06:29)
[2019-08-23 06:36] LABS: BUN/Creatinine Ratio 15 (6-26); Blood Urea Nitrogen 11 mg/dL (6-20); Calcium 7.8 mg/dL (8.6-10.3); Carbon Dioxide 12 mEq/L (23-29); Chloride 116 mEq/L (98-107); Glucose 109 mg/dL (70-105); Osmolality,Calculated 288 (280-300); Phosphorous 3.4 mg/dL (2.7-4.5); Potassium 3.6 mEq/L (3.5-5.1); Sodium 139 mEq/L (136-145); eGFR For African Americans > 60; eGFR For Non-African Americans > 60
[2019-08-23 09:40] LABS: BUN/Creatinine Ratio 14 (6-26); Blood Urea Nitrogen 10 mg/dL (6-20); Calcium 7.9 mg/dL (8.6-10.3); Carbon Dioxide 15 mEq/L (23-29); Chloride 114 mEq/L (98-107); Glucose 144 mg/dL (70-105); Osmolality,Calculated 290 (280-300); Potassium 3.1 mEq/L (3.5-5.1); Sodium 139 mEq/L (136-145); eGFR For African Americans > 60; eGFR For Non-African Americans > 60
[2019-08-23] MEDS ORDERED: D5% in Water 1,000 ML IVC PRN ×2 (10:04→12:21)
[2019-08-23] MEDS ORDERED: Dextrose Gel 15 GM/37.5 ML TUBE PO PRN ×4 (10:04→12:21)
[2019-08-23] MEDS ORDERED: *HR* Dextrose 50 % in Water (Syg) 50 ML SYRINGE IVP PRN ×2 (10:04→12:21)
[2019-08-23] MEDS ORDERED: Insulin DETEMIR 100 UNIT/ML X5UNITS SQ SCH (10:15)
[2019-08-23] MEDS ORDERED: Insulin LISPRO 300 UNITS/3 ML VIAL SQ SCH ×4 (12:00→21:00)
[2019-08-23] MEDS ORDERED: Ondansetron 4 MG/2 ML VIAL IVP PRN ×2 (12:07→12:21)
[2019-08-23] MEDS: Insulin LISPRO 300 UNITS/3 ML VIAL SQ SCH (15:55)
[2019-08-23] MEDS: Insulin Human Regular 100 UNIT in 0.9 % Sodium Chloride 100 ML IVC SCH (19:59)
[2019-08-23] MEDS: Insulin DETEMIR 100 UNIT/ML X5UNITS SQ SCH (20:40)
[2019-08-24 06:45] LABS: BUN/Creatinine Ratio 8 (6-26); Blood Urea Nitrogen 5 mg/dL (6-20); Calcium 8.9 mg/dL (8.6-10.3); Carbon Dioxide 20 mEq/L (23-29); Chloride 107 mEq/L (98-107); Glucose 128 mg/dL (70-105); Osmolality,Calculated 287 (280-300); Potassium 3.2 mEq/L (3.5-5.1); Sodium 139 mEq/L (136-145); eGFR For African Americans > 60; eGFR For Non-African Americans > 60
[2019-08-24] MEDS: Insulin LISPRO 300 UNITS/3 ML VIAL SQ SCH ×2 (08:01→11:18)
[2019-08-24] MEDS: *HR* Heparin 5,000 UNIT/ML VIAL SQ SCH (08:03)
[2019-08-24] MEDS: Insulin DETEMIR 100 UNIT/ML X5UNITS SQ SCH (08:37)
[2019-08-24 10:59] VITALS: BP 112/76
== END 2019-08-24 13:20 | disposition home or self-care (01) | DRG 420 ==
LOC: EMEROOARM 10:01 → ICNU 13:03 → 3BNU 08-23 15:26 → UNDODISIN 08-24 11:58
PROVIDERS: ADMIT Internal Medicine; ATTEND Internal Medicine

== ENCOUNTER 2021-01-11 02:29 | Inpatient (IN) ==
[2021-01-11] MEDS ORDERED: Ondansetron 4 MG/2 ML VIAL IVP ONE (02:52)
[2021-01-11] MEDS ORDERED: 0.9 % Sodium Chloride 1,000 ML IVC ONE ×3 (02:52→04:26)
[2021-01-11 03:29] LABS: Basophils # 0.1 K/mcL (0.0-0.2); Basophils % 0.6 %; Eosinophils # 0.1 K/mcL (0.0-0.6); Eosinophils % 0.3 %; Hematocrit 46.7 % (35.3-44.9); Hemoglobin 14.1 g/dL (11.5-15.4); Immature Granulocytes % 1.2 % (0-4); Lymphocytes # 2.3 K/mcL (0.6-4.6); Lymphocytes % 11.1 %; Mean Corpuscular HGB Conc 30.2 g/dL (31.6-35.5); Mean Corpuscular Hemoglobin 28.1 pg (28.0-33.3); Mean Platelet Volume 9.9 fL (9.4-12.4); Monocytes # 0.7 K/mcL (0.0-1.3); Monocytes % 3.5 %; Platelet Count 629 K/mcL (140-400); Red Blood Count 5.02 M/mcL (3.82-4.97); Red Cell Distribution Width 13.2 % (11.5-14.5); Segmented Neutrophils % 83.3 %; White Blood Count 20.4 K/mcL (4.3-11.1)
[2021-01-11 03:31] LABS: VBG HCO3 5 mEq/L (21-27); VBG PCO2 22 mmHg (41-51); VBG PO2 121 mmHg (25-50)
[2021-01-11 03:45] LABS: Bilirubin,Urine Negative (Negative); Blood,Urine Negative (Negative); Clarity,Urine Clear (Clear); Color,Urine Colorless (Yellow); Glucose,Urine (UA) >=1000 mg/dL (Normal); Ketones,Urine >150 mg/dL (Negative); Leukocyte Esterase,Urine Negative (Negative); Mucus,Urine Few per lpf (None-Few); Nitrite,Urine Negative (Negative); PH,Urine 5.5 pH Units (5.0-8.0); Protein,Urine 50 mg/dL (Neg-Trace); RBC,Urine 0-3 per hpf (0-3); Specific Gravity,Urine 1.025 (1.010-1.025); Squamous Epithelial Cell,Urine Moderate per hpf (None-Few); Urobilinogen,Urine Normal (Normal); WBC,Urine 0-3 per hpf (0-3)
[2021-01-11 04:48] LABS: BUN/Creatinine Ratio 27 (6-26); Blood Urea Nitrogen 26 mg/dL (6-20); Calcium 8.8 mg/dL (8.6-10.3); Carbon Dioxide 4 mEq/L (23-29); Chloride 101 mEq/L (98-107); Glucose 680 mg/dL (70-105); Osmolality,Calculated 309 (280-300); Potassium 6.4 mEq/L (3.5-5.1); Sodium 131 mEq/L (136-145); eGFR For African Americans > 60 (> 60); eGFR For Non-African Americans > 60 (> 60)
[2021-01-11] MEDS ORDERED: Insulin Regular, Human 100 UNIT/ML IV ONE (05:14)
[2021-01-11] MEDS ORDERED: Insulin Regular, Human 100 UNIT/ML IV PRN ×2 (05:14→16:26)
[2021-01-11] MEDS ORDERED: Calcium Gluconate 1gm/50mL 1 GM/50 ML BAG IVPB ONE (05:14)
[2021-01-11] MEDS ORDERED: *HR* Dextrose 50 % in Water (Syg) 50 ML SYRINGE IVP PRN ×3 (05:14→16:26)
[2021-01-11] MEDS ORDERED: Albuterol 2.5 MG/3 ML NEBULIZER IH ONE (05:16)
[2021-01-11] MEDS ORDERED: *HR* FentaNYL (PF) 100 MCG/2 ML VIAL IVP ONE (05:29)
[2021-01-11 06:41] LABS: Amphetamine Screen,Urine Negative ng/mL (Cutoff=1000); Barbiturate Screen,Urine Negative ng/mL (Cutoff=200)
[2021-01-11 06:42] LABS: Benzodiazepines Screen,Urine Negative ng/mL (Cutoff=300); Cannabinoid Screen,Urine Negative ng/mL (Cutoff = 50); Cocaine Screen,Urine Negative ng/mL (Cutoff= 300); Opiate Screen,Urine Negative ng/mL (Cutoff=300); Phencyclidine Screen,Urine Negative ng/mL (Cutoff=25)
[2021-01-11] MEDS ORDERED: Naloxone 0.4 MG/ML INJ IVP PRN ×2 (06:57→16:26)
[2021-01-11 07:08] LABS: Adenovirus Not Detected (Not Detect); Bordetella Pertussis Not Detected (Not Detect); Chlamydophila pneumoniae Not Detected (Not Detect); Coronavirus 229E Not Detected (Not Detect); Coronavirus HKU1 Not Detected (Not Detect); Coronavirus NL63 Not Detected (Not Detect); Coronavirus OC43 Not Detected (Not Detect); Human Metapneumovirus Not Detected (Not Detect); Human Rhinovirus/Enterovirus Not Detected (Not Detect); Influenza A Subtype 2009 H1 Not Detected (Not Detect); Influenza B Not Detected (Not Detect); Mycoplasma pneumoniae Not Detected (Not Detect); Parainfluenza Virus 1 Not Detected (Not Detect); Parainfluenza Virus 2 Not Detected (Not Detect); Parainfluenza Virus 3 Not Detected (Not Detect); Parainfluenza Virus 4 Not Detected (Not Detect); Respiratory Syncytial Virus Not Detected (Not Detect); SARS-CoV-2 Not Detected (Not Detect)
[2021-01-11] MEDS ORDERED: D5% in 0.45% NACL w KCl 20 MEQ/1,000 ML MLS IVC PRN (07:26)
[2021-01-11] MEDS ORDERED: D5% in 0.45% NACL 1,000 ML IVC PRN ×2 (07:26→16:26)
[2021-01-11] MEDS ORDERED: 0.9 % Sodium Chloride 1,000 ML ONE (08:16)
[2021-01-11] MEDS ORDERED: Acetaminophen 325 MG TABLET PO PRN ×2 (08:50→16:26)
[2021-01-11] MEDS ORDERED: Ondansetron 4 MG/2 ML VIAL IVP PRN ×2 (08:50→16:26)
[2021-01-11 09:42] LABS: VBG HCO3 4 mEq/L (21-27); VBG PCO2 21 mmHg (41-51); VBG PH 6.84 pH Units (7.32-7.42); VBG PO2 106 mmHg (25-50)
[2021-01-11 10:17] LABS: BUN/Creatinine Ratio 22 (6-26); Blood Urea Nitrogen 24 mg/dL (6-20); Calcium 9.1 mg/dL (8.6-10.3); Carbon Dioxide 4 mEq/L (23-29); Chloride 109 mEq/L (98-107); Glucose 373 mg/dL (70-105); Magnesium 2.4 mg/dL (1.6-2.6); Osmolality,Calculated 307 (280-300); Phosphorous 6.1 mg/dL (2.7-4.5); Potassium 4.9 mEq/L (3.5-5.1); Sodium 139 mEq/L (136-145); eGFR For African Americans > 60 (> 60); eGFR For Non-African Americans > 60 (> 60)
[2021-01-11] MEDS: 0.45 % Sodium Chloride w/KCl 20 MEQ/1,000 ML MLS IVC SCH ×4 (10:23→13:16)
[2021-01-11] MEDS ORDERED: *HR* HYDROmorphone (PF) 1 MG/ML SYRINGE IVP ONE (13:09)
[2021-01-11] MEDS ORDERED: Metoclopramide 10 MG/2 ML VIAL IVP PRN ×2 (13:10→16:26)
[2021-01-11 13:12] LABS: VBG HCO3 7 mEq/L (21-27); VBG PCO2 20 mmHg (41-51); VBG PH 7.15 pH Units (7.32-7.42); VBG PO2 92 mmHg (25-50)
[2021-01-11] MEDS ORDERED: Isovue-370 500 ML BOTTLE IVP ONE (13:23)
[2021-01-11] MEDS ORDERED: D5% in 0.45% NACL w KCl 20 MEQ/1,000 ML MLS IVC SCH (13:30)
[2021-01-11 14:15] LABS: BUN/Creatinine Ratio 21 (6-26); Blood Urea Nitrogen 21 mg/dL (6-20); Calcium 8.6 mg/dL (8.6-10.3); Chloride 111 mEq/L (98-107); Glucose 237 mg/dL (70-105); Osmolality,Calculated 299 (280-300); Phosphorous 2.5 mg/dL (2.7-4.5); Potassium 4.4 mEq/L (3.5-5.1); Sodium 139 mEq/L (136-145); eGFR For African Americans > 60 (> 60); eGFR For Non-African Americans > 60 (> 60)
[2021-01-11 14:16] LABS: Carbon Dioxide 7 mEq/L (23-29)
[2021-01-11 14:36] LABS: Magnesium 1.9 mg/dL (1.6-2.6)
[2021-01-11 17:38] LABS: VBG HCO3 14 mEq/L (21-27); VBG PCO2 29 mmHg (41-51); VBG PH 7.28 pH Units (7.32-7.42); VBG PO2 82 mmHg (25-50)
[2021-01-11 18:06] LABS: BUN/Creatinine Ratio 21 (6-26); Blood Urea Nitrogen 18 mg/dL (6-20); Calcium 8.4 mg/dL (8.6-10.3); Carbon Dioxide 14 mEq/L (23-29); Chloride 113 mEq/L (98-107); Glucose 139 mg/dL (70-105); Magnesium 1.8 mg/dL (1.6-2.6); Osmolality,Calculated 288 (280-300); Potassium 3.9 mEq/L (3.5-5.1); Sodium 137 mEq/L (136-145); eGFR For African Americans > 60 (> 60); eGFR For Non-African Americans > 60 (> 60)
[2021-01-11] MEDS: D5% in 0.45% NACL w KCl 20 MEQ/1,000 ML MLS IVC SCH (20:19)
[2021-01-11 22:16] LABS: BUN/Creatinine Ratio 21 (6-26); Blood Urea Nitrogen 16 mg/dL (6-20); Calcium 8.2 mg/dL (8.6-10.3); Carbon Dioxide 12 mEq/L (23-29); Chloride 109 mEq/L (98-107); Glucose 174 mg/dL (70-105); Osmolality,Calculated 283 (280-300); Potassium 3.8 mEq/L (3.5-5.1); Sodium 134 mEq/L (136-145); eGFR For African Americans > 60 (> 60); eGFR For Non-African Americans > 60 (> 60)
[2021-01-12 01:57] LABS: BUN/Creatinine Ratio 18 (6-26); Blood Urea Nitrogen 13 mg/dL (6-20); Calcium 8.3 mg/dL (8.6-10.3); Carbon Dioxide 14 mEq/L (23-29); Chloride 109 mEq/L (98-107); Glucose 171 mg/dL (70-105); Osmolality,Calculated 278 (280-300); Potassium 3.6 mEq/L (3.5-5.1); Sodium 132 mEq/L (136-145); eGFR For African Americans > 60 (> 60); eGFR For Non-African Americans > 60 (> 60)
[2021-01-12] MEDS: D5% in 0.45% NACL w KCl 20 MEQ/1,000 ML MLS IVC SCH (03:37)
[2021-01-12] MEDS ORDERED: *HR* Enoxaparin 40 MG/0.4 ML SYRINGE SQ SCH ×2 (06:00)
[2021-01-12 06:16] LABS: BUN/Creatinine Ratio 16 (6-26); Blood Urea Nitrogen 11 mg/dL (6-20); Calcium 8.2 mg/dL (8.6-10.3); Carbon Dioxide 14 mEq/L (23-29); Chloride 107 mEq/L (98-107); Glucose 162 mg/dL (70-105); Osmolality,Calculated 275 (280-300); Potassium 3.2 mEq/L (3.5-5.1); Sodium 131 mEq/L (136-145); eGFR For African Americans > 60 (> 60); eGFR For Non-African Americans > 60 (> 60)
[2021-01-12] MEDS ORDERED: D5% in Water 1,000 ML IVC PRN (08:06)
[2021-01-12] MEDS ORDERED: Dextrose Gel 15 GM/37.5 ML TUBE PO PRN ×2 (08:06)
[2021-01-12] MEDS ORDERED: *HR* Dextrose 50 % in Water (Syg) 50 ML SYRINGE IVP PRN (08:06)
[2021-01-12] MEDS: Insulin DETEMIR 100 UNIT/ML X5UNITS SUBQ SCH ×2 (08:20→09:47)
[2021-01-12 08:25] LABS: BUN/Creatinine Ratio 14 (6-26); Blood Urea Nitrogen 10 mg/dL (6-20); Calcium 8.5 mg/dL (8.6-10.3); Carbon Dioxide 16 mEq/L (23-29); Chloride 109 mEq/L (98-107); Glucose 163 mg/dL (70-105); Osmolality,Calculated 283 (280-300); Potassium 3.5 mEq/L (3.5-5.1); Sodium 135 mEq/L (136-145); eGFR For African Americans > 60 (> 60); eGFR For Non-African Americans > 60 (> 60)
[2021-01-12] MEDS: Insulin LISPRO 300 UNITS/3 ML VIAL SUBQ SCH ×6 (08:41→17:06)
[2021-01-12 09:39] LABS: Basophils % 0.3 %; Eosinophils # 0.1 K/mcL (0.0-0.6); Eosinophils % 0.4 %; Hematocrit 32.2 % (35.3-44.9); Hemoglobin 10.6 g/dL (11.5-15.4); Immature Granulocytes % 0.4 % (0-4); Lymphocytes # 2.2 K/mcL (0.6-4.6); Lymphocytes % 17.7 %; Mean Corpuscular HGB Conc 32.9 g/dL (31.6-35.5); Mean Platelet Volume 9.5 fL (9.4-12.4); Monocytes % 8.3 %; Neutrophils # 8.9 K/mcL (1.6-8.9); Platelet Count 365 K/mcL (140-400); Red Blood Count 3.79 M/mcL (3.82-4.97); Red Cell Distribution Width 13.2 % (11.5-14.5); Segmented Neutrophils % 72.9 %; White Blood Count 12.2 K/mcL (4.3-11.1)
[2021-01-12] MEDS ORDERED: Insulin DETEMIR 100 UNIT/ML X5UNITS SUBQ ONE (13:01)
[2021-01-12 15:01] VITALS: BP 129/61; PULSE 121; TEMP 98.4; O2SAT 98
[2021-01-12] MEDS ORDERED: [UNRECOGNIZED DRUG - REMARK] IM ONE (16:15)
[2021-01-12] MEDS ORDERED: FLU Vac QV 21-22 (6Month+)/PF 0.5 ML SYRINGE IM ONE ×2 (16:21→16:56)
[2021-01-12] MEDS ORDERED: Insulin LISPRO 300 UNITS/3 ML VIAL SUBQ SCH (21:00)
== END 2021-01-12 18:21 | disposition home or self-care (01) | DRG 420 ==
LOC: ICNU 02:29 → EMEROOARM 02:29 → 2NNU 06:38 → SUATTDRO 06:57 → 2NNU 06:58
PROVIDERS: ADMIT Internal Medicine; ATTEND Internal Medicine

== ENCOUNTER 2021-01-24 06:40 | Observation (INO) ==
[2021-01-24] MEDS ORDERED: Insulin Regular, Human 100 UNIT/ML IV ONE (06:53)
[2021-01-24 08:41] LABS: Basophils # 0.1 K/mcL (0.0-0.2); Basophils % 0.5 %; Eosinophils % 0.2 %; Hematocrit 46.3 % (35.3-44.9); Hemoglobin 14.2 g/dL (11.5-15.4); Immature Granulocytes % 1.2 % (0-4); Lymphocytes # 1.5 K/mcL (0.6-4.6); Lymphocytes % 9.3 %; Mean Corpuscular HGB Conc 30.7 g/dL (31.6-35.5); Mean Corpuscular Hemoglobin 27.8 pg (28.0-33.3); Mean Corpuscular Volume 90.8 fL (83.0-100.0); Mean Platelet Volume 9.4 fL (9.4-12.4); Monocytes # 1.3 K/mcL (0.0-1.3); Monocytes % 7.8 %; Neutrophils # 13.2 K/mcL (1.6-8.9); Platelet Count 834 K/mcL (140-400); Red Cell Distribution Width 13.7 % (11.5-14.5); White Blood Count 16.3 K/mcL (4.3-11.1)
[2021-01-24] MEDS: 0.9 % Sodium Chloride 1,000 ML IVC SCH ×2 (08:44→09:59)
[2021-01-24 08:50] LABS: VBG HCO3 8 mEq/L (21-27); VBG PCO2 30 mmHg (41-51); VBG PH 7.03 pH Units (7.32-7.42); VBG PO2 51 mmHg (25-50)
[2021-01-24 08:55] LABS: Bacteria,Urine Few per hpf (None-Few); Bilirubin,Urine Negative (Negative); Blood,Urine Large (Negative); Clarity,Urine Turbid (Clear); Color,Urine Light-Brown (Yellow); Glucose,Urine (UA) >=1000 mg/dL (Normal); Ketones,Urine >150 mg/dL (Negative); Leukocyte Esterase,Urine Negative (Negative); Mucus,Urine Few per lpf (None-Few); Nitrite,Urine Negative (Negative); PH,Urine 5.5 pH Units (5.0-8.0); Protein,Urine 70 mg/dL (Neg-Trace); RBC,Urine 0-3 per hpf (0-3); Specific Gravity,Urine 1.025 (1.010-1.025); Squamous Epithelial Cell,Urine Moderate per hpf (None-Few); Urobilinogen,Urine Normal (Normal)
[2021-01-24 09:05] LABS: Alanine Aminotransferase 88 Units/L (7-52); Albumin 4.9 g/dL (3.5-5.7); Albumin/Globulin Ratio 1.3 (1.1-2.2); Alkaline Phosphatase 140 Units/L (34-104); Aspartate Amino Transferase 24 Units/L (13-39); BUN/Creatinine Ratio 17 (6-26); Bilirubin,Total 0.2 mg/dL (0.3-1.0); Blood Urea Nitrogen 22 mg/dL (6-20); Calcium 10.2 mg/dL (8.6-10.3); Carbon Dioxide 9 mEq/L (23-29); Chloride 101 mEq/L (98-107); Globulin 3.8 g/dL (2.4-3.5); Glucose 553 mg/dL (70-105); Magnesium 2.6 mg/dL (1.6-2.6); Osmolality,Calculated 315 (280-300); Phosphorous 6.1 mg/dL (2.7-4.5); Potassium 4.5 mEq/L (3.5-5.1); Sodium 138 mEq/L (136-145); Total Protein 8.7 g/dL (6.4-8.9); Troponin I < 0.03 ng/mL (< 0.04); eGFR For African Americans > 60 (> 60); eGFR For Non-African Americans 53 (> 60)
[2021-01-24] MEDS ORDERED: *HR* Dextrose 50 % in Water (Syg) 50 ML SYRINGE IVP PRN ×2 (10:51→10:55)
[2021-01-24] MEDS ORDERED: Insulin Regular, Human 100 UNIT/ML IV PRN (10:51)
[2021-01-24] MEDS ORDERED: Dextrose Gel 15 GM/37.5 ML TUBE PO PRN ×2 (10:55)
[2021-01-24] MEDS ORDERED: D5% in Water 1,000 ML IVC PRN (10:55)
[2021-01-24] MEDS ORDERED: Ondansetron 4 MG/2 ML VIAL IVP PRN (10:56)
[2021-01-24] MEDS ORDERED: Melatonin 3 MG TABLET PO PRN (10:56)
[2021-01-24] MEDS ORDERED: Acetaminophen 325 MG TABLET PO PRN (10:56)
[2021-01-24] MEDS: D5% in 0.45% NACL w KCl 20 MEQ/1,000 ML MLS IVC PRN ×2 (12:25→21:02)
[2021-01-24 12:55] LABS: VBG HCO3 17 mEq/L (21-27); VBG PCO2 33 mmHg (41-51); VBG PH 7.32 pH Units (7.32-7.42); VBG PO2 61 mmHg (25-50)
[2021-01-24 13:29] LABS: Estimated Average Glucose 295 mg/dl; Hemoglobin A1C 11.9 %
[2021-01-24 13:30] LABS: BUN/Creatinine Ratio 22 (6-26); Blood Urea Nitrogen 18 mg/dL (6-20); Calcium 8.8 mg/dL (8.6-10.3); Carbon Dioxide 17 mEq/L (23-29); Chloride 110 mEq/L (98-107); Glucose 85 mg/dL (70-105); Osmolality,Calculated 293 (280-300); Potassium 3.4 mEq/L (3.5-5.1); Sodium 141 mEq/L (136-145); eGFR For African Americans > 60 (> 60); eGFR For Non-African Americans > 60 (> 60)
[2021-01-24 20:17] LABS: VBG HCO3 19 mEq/L (21-27); VBG PCO2 35 mmHg (41-51); VBG PH 7.33 pH Units (7.32-7.42); VBG PO2 177 mmHg (25-50)
[2021-01-24] MEDS ORDERED: 0.45 % Sodium Chloride w/KCl 20 MEQ/1,000 ML MLS IVC PRN (20:29)
[2021-01-24] MEDS ORDERED: Insulin DETEMIR 100 UNIT/ML X5UNITS SUBQ SCH (21:00)
[2021-01-24 21:10] LABS: BUN/Creatinine Ratio 18 (6-26); Blood Urea Nitrogen 14 mg/dL (6-20); Calcium 8.3 mg/dL (8.6-10.3); Carbon Dioxide 20 mEq/L (23-29); Chloride 109 mEq/L (98-107); Glucose 85 mg/dL (70-105); Osmolality,Calculated 282 (280-300); Potassium 3.5 mEq/L (3.5-5.1); Sodium 136 mEq/L (136-145); eGFR For African Americans > 60 (> 60); eGFR For Non-African Americans > 60 (> 60)
[2021-01-24] MEDS: 0.45 % Sodium Chloride w/KCl 20 MEQ/1,000 ML MLS IVC SCH ×3 (22:14→22:20)
[2021-01-25 04:30] LABS: BUN/Creatinine Ratio 15 (6-26); Blood Urea Nitrogen 11 mg/dL (6-20); Calcium 8.6 mg/dL (8.6-10.3); Carbon Dioxide 18 mEq/L (23-29); Chloride 111 mEq/L (98-107); Glucose 124 mg/dL (70-105); Osmolality,Calculated 285 (280-300); Potassium 3.7 mEq/L (3.5-5.1); Sodium 137 mEq/L (136-145); eGFR For African Americans > 60 (> 60); eGFR For Non-African Americans > 60 (> 60)
[2021-01-25 05:02] LABS: Hematocrit 33.7 % (35.3-44.9); Hemoglobin 10.6 g/dL (11.5-15.4); Mean Corpuscular HGB Conc 31.5 g/dL (31.6-35.5); Mean Platelet Volume 9.1 fL (9.4-12.4); Platelet Count 508 K/mcL (140-400); Red Blood Count 3.92 M/mcL (3.82-4.97); Red Cell Distribution Width 14.2 % (11.5-14.5); White Blood Count 7.8 K/mcL (4.3-11.1)
[2021-01-25] MEDS: Insulin LISPRO 300 UNITS/3 ML VIAL SUBQ SCH ×2 (07:58→12:39)
[2021-01-25] MEDS ORDERED: Insulin DETEMIR 100 UNIT/ML X5UNITS SUBQ SCH (09:00)
[2021-01-25] MEDS ORDERED: Moderna Covid-19 Vaccine 100MCG/0.5mL IM ONE (10:39)
[2021-01-25 12:04] VITALS: BP 98/63; PULSE 105; TEMP 98.3; O2SAT 99
== END 2021-01-25 16:25 | disposition home or self-care (01) ==
LOC: 3NENU 06:40 → EMEROOARM 06:40 → 2NNU 16:26 → 3NENU 23:20
PROVIDERS: ADMIT Internal Medicine; ATTEND Internal Medicine

== ENCOUNTER 2021-02-22 17:25 | Observation (INO) ==
[2021-02-22] MEDS ORDERED: 0.9 % Sodium Chloride 1,000 ML IVC ONE ×2 (18:52→19:39)
[2021-02-22 19:19] LABS: Basophils # 0.1 K/mcL (0.0-0.2); Basophils % 0.8 %; Eosinophils # 0.1 K/mcL (0.0-0.6); Eosinophils % 1.6 %; Hematocrit 44.1 % (35.3-44.9); Hemoglobin 14.1 g/dL (11.5-15.4); Immature Granulocytes % 0.7 % (0-4); Lymphocytes # 1.8 K/mcL (0.6-4.6); Lymphocytes % 23.9 %; Mean Corpuscular Hemoglobin 27.3 pg (28.0-33.3); Mean Corpuscular Volume 85.5 fL (83.0-100.0); Mean Platelet Volume 9.2 fL (9.4-12.4); Monocytes # 0.6 K/mcL (0.0-1.3); Monocytes % 7.4 %; Platelet Count 488 K/mcL (140-400); Red Blood Count 5.16 M/mcL (3.82-4.97); Red Cell Distribution Width 14.2 % (11.5-14.5); Segmented Neutrophils % 65.6 %; White Blood Count 7.6 K/mcL (4.3-11.1)
[2021-02-22 19:37] LABS: Alanine Aminotransferase 10 Units/L (7-52); Albumin 4.6 g/dL (3.5-5.7); Albumin/Globulin Ratio 1.2 (1.1-2.2); Alkaline Phosphatase 99 Units/L (34-104); Aspartate Amino Transferase 10 Units/L (13-39); BUN/Creatinine Ratio 11 (6-26); Bilirubin,Total 0.3 mg/dL (0.3-1.0); Blood Urea Nitrogen 10 mg/dL (6-20); Calcium 9.5 mg/dL (8.6-10.3); Carbon Dioxide 12 mEq/L (23-29); Chloride 104 mEq/L (98-107); Globulin 3.7 g/dL (2.4-3.5); Glucose 161 mg/dL (70-105); Osmolality,Calculated 283 (280-300); Potassium 3.2 mEq/L (3.5-5.1); Sodium 135 mEq/L (136-145); Total Protein 8.3 g/dL (6.4-8.9); eGFR For African Americans > 60 (> 60); eGFR For Non-African Americans > 60 (> 60)
[2021-02-22 20:25] LABS: Bacteria,Urine Few per hpf (None-Few); Bilirubin,Urine Small (Negative); Blood,Urine Trace (Negative); Clarity,Urine Turbid (Clear); Color,Urine Light-Yellow (Yellow); Glucose,Urine (UA) >=1000 mg/dL (Normal); Hyaline Casts,Urine Moderate per lpf (None Seen); Ketones,Urine >150 mg/dL (Negative); Leukocyte Esterase,Urine Trace (Negative); Mucus,Urine Few per lpf (None-Few); Nitrite,Urine Negative (Negative); PH,Urine 5.5 pH Units (5.0-8.0); Protein,Urine 200 mg/dL (Neg-Trace); RBC,Urine 0-3 per hpf (0-3); Specific Gravity,Urine 1.026 (1.010-1.025); Squamous Epithelial Cell,Urine Many per hpf (None-Few)
[2021-02-22 22:18] LABS: VBG HCO3 11 mEq/L (21-27); VBG PCO2 29 mmHg (41-51); VBG PH 7.19 pH Units (7.32-7.42); VBG PO2 47 mmHg (25-50)
[2021-02-22 23:37] LABS: BUN/Creatinine Ratio 10 (6-26); Blood Urea Nitrogen 8 mg/dL (6-20); Calcium 7.8 mg/dL (8.6-10.3); Carbon Dioxide 9 mEq/L (23-29); Chloride 102 mEq/L (98-107); Glucose 314 mg/dL (70-105); Osmolality,Calculated 280 (280-300); Potassium 3.8 mEq/L (3.5-5.1); Sodium 130 mEq/L (136-145); eGFR For African Americans > 60 (> 60); eGFR For Non-African Americans > 60 (> 60)
[2021-02-23] MEDS: D5% in 0.45% NACL 1,000 ML IVC SCH ×4 (00:16→21:28)
[2021-02-23] MEDS ORDERED: 0.9 % Sodium Chloride 1,000 ML IVC ONE (00:17)
[2021-02-23] MEDS ORDERED: Naloxone 0.4 MG/ML INJ IVP PRN (00:53)
[2021-02-23] MEDS ORDERED: Melatonin 3 MG TABLET PO PRN (00:53)
[2021-02-23] MEDS ORDERED: *HR* Dextrose 50 % in Water (Syg) 50 ML SYRINGE IVP PRN ×2 (00:55→16:07)
[2021-02-23] MEDS ORDERED: Pantoprazole 40 MG VIAL IVP ONE (01:52)
[2021-02-23 02:16] LABS: Influenza A PCR Negative (Negative); Influenza B PCR Negative (Negative); Resp. Syncytial Virus PCR Negative (Negative); SARS-CoV-2 by PCR (In House) Negative (Negative)
[2021-02-23] MEDS: 0.45 % Sodium Chloride w/KCl 20 MEQ/1,000 ML MLS IVC SCH ×3 (02:24→05:39)
[2021-02-23] MEDS: D5% in 0.45% NACL w KCl 20 MEQ/1,000 ML MLS IVC SCH ×6 (03:46→23:26)
[2021-02-23 06:03] LABS: VBG HCO3 12 mEq/L (21-27); VBG PCO2 24 mmHg (41-51); VBG PH 7.32 pH Units (7.32-7.42); VBG PO2 119 mmHg (25-50)
[2021-02-23 06:42] LABS: Hematocrit 34.1 % (35.3-44.9); Mean Corpuscular Hemoglobin 27.6 pg (28.0-33.3); Mean Corpuscular Volume 86.3 fL (83.0-100.0); Mean Platelet Volume 9.3 fL (9.4-12.4); Platelet Count 368 K/mcL (140-400); Red Blood Count 3.95 M/mcL (3.82-4.97); Red Cell Distribution Width 14.5 % (11.5-14.5)
[2021-02-23 06:43] LABS: Hemoglobin 10.9 g/dL (11.5-15.4)
[2021-02-23 07:40] LABS: BUN/Creatinine Ratio 10 (6-26); Blood Urea Nitrogen 7 mg/dL (6-20); Calcium 7.9 mg/dL (8.6-10.3); Carbon Dioxide 11 mEq/L (23-29); Chloride 111 mEq/L (98-107); Glucose 150 mg/dL (70-105); Osmolality,Calculated 277 (280-300); Potassium 3.6 mEq/L (3.5-5.1); Sodium 133 mEq/L (136-145); eGFR For African Americans > 60 (> 60); eGFR For Non-African Americans > 60 (> 60)
[2021-02-23 07:41] LABS: BUN/Creatinine Ratio 8 (6-26); Blood Urea Nitrogen 6 mg/dL (6-20); Calcium 7.9 mg/dL (8.6-10.3); Carbon Dioxide 12 mEq/L (23-29); Chloride 112 mEq/L (98-107); Glucose 150 mg/dL (70-105); Osmolality,Calculated 276 (280-300); Potassium 3.6 mEq/L (3.5-5.1); Sodium 133 mEq/L (136-145); eGFR For African Americans > 60 (> 60); eGFR For Non-African Americans > 60 (> 60)
[2021-02-23 07:48] LABS: Magnesium 1.5 mg/dL (1.6-2.6); Phosphorous < 1.0 mg/dL (2.7-4.5)
[2021-02-23 11:17] LABS: VBG HCO3 13 mEq/L (21-27); VBG PCO2 31 mmHg (41-51); VBG PH 7.24 pH Units (7.32-7.42); VBG PO2 137 mmHg (25-50)
[2021-02-23 11:39] LABS: BUN/Creatinine Ratio 7 (6-26); Blood Urea Nitrogen 5 mg/dL (6-20); Calcium 8.2 mg/dL (8.6-10.3); Carbon Dioxide 13 mEq/L (23-29); Chloride 111 mEq/L (98-107); Glucose 119 mg/dL (70-105); Magnesium 1.6 mg/dL (1.6-2.6); Osmolality,Calculated 276 (280-300); Phosphorous 1.8 mg/dL (2.7-4.5); Potassium 3.8 mEq/L (3.5-5.1); Sodium 134 mEq/L (136-145); eGFR For African Americans > 60 (> 60); eGFR For Non-African Americans > 60 (> 60)
[2021-02-23] MEDS ORDERED: Insulin DETEMIR 100 UNIT/ML X5UNITS SUBQ ONE ×2 (12:36→16:08)
[2021-02-23] MEDS: cefTRIAXone 1,000 MG in 0.9 % Sodium Chloride Mini Bag 100 ML IVPB SCH (15:53)
[2021-02-23] MEDS ORDERED: D5% in Water 1,000 ML IVC PRN (16:07)
[2021-02-23] MEDS ORDERED: Dextrose Gel 15 GM/37.5 ML TUBE PO PRN ×2 (16:07)
[2021-02-23] MEDS: Ringers Solution, Lactated 1,000 ML IVC SCH ×3 (16:24→21:44)
[2021-02-23] MEDS: Insulin LISPRO 300 UNITS/3 ML VIAL SUBQ SCH ×2 (16:34→18:55)
[2021-02-23 16:50] LABS: BUN/Creatinine Ratio 7 (6-26); Blood Urea Nitrogen 6 mg/dL (6-20); Calcium 8.1 mg/dL (8.6-10.3); Carbon Dioxide 14 mEq/L (23-29); Chloride 105 mEq/L (98-107); Glucose 401 mg/dL (70-105); Osmolality,Calculated 286 (280-300); Potassium 3.6 mEq/L (3.5-5.1); Sodium 131 mEq/L (136-145); eGFR For African Americans > 60 (> 60); eGFR For Non-African Americans > 60 (> 60)
[2021-02-23] MEDS ORDERED: Insulin Human Regular 10 UNIT in 0.9 % Sodium Chloride 10 ML IV ONE (16:54)
[2021-02-23 18:15] LABS: VBG HCO3 12 mEq/L (21-27); VBG PCO2 28 mmHg (41-51); VBG PH 7.23 pH Units (7.32-7.42); VBG PO2 55 mmHg (25-50)
[2021-02-23 20:09] LABS: VBG HCO3 15 mEq/L (21-27); VBG PCO2 29 mmHg (41-51); VBG PH 7.32 pH Units (7.32-7.42); VBG PO2 173 mmHg (25-50)
[2021-02-23 20:27] LABS: BUN/Creatinine Ratio 8 (6-26); Blood Urea Nitrogen 6 mg/dL (6-20); Calcium 8.5 mg/dL (8.6-10.3); Carbon Dioxide 14 mEq/L (23-29); Chloride 108 mEq/L (98-107); Glucose 224 mg/dL (70-105); Osmolality,Calculated 281 (280-300); Potassium 3.1 mEq/L (3.5-5.1); Sodium 133 mEq/L (136-145); eGFR For African Americans > 60 (> 60); eGFR For Non-African Americans > 60 (> 60)
[2021-02-23] MEDS ORDERED: Insulin DETEMIR 100 UNIT/ML X5UNITS SUBQ SCH (21:00)
[2021-02-23] MEDS ORDERED: Insulin LISPRO 300 UNITS/3 ML VIAL SUBQ SCH (21:00)
[2021-02-24] MEDS: 0.45 % Sodium Chloride w/KCl 20 MEQ/1,000 ML MLS IVC SCH (00:43)
[2021-02-24] MEDS: Ringers Solution, Lactated 1,000 ML IVC SCH ×3 (03:03→11:13)
[2021-02-24 04:05] LABS: BUN/Creatinine Ratio 10 (6-26); Blood Urea Nitrogen 6 mg/dL (6-20); Calcium 8.3 mg/dL (8.6-10.3); Carbon Dioxide 20 mEq/L (23-29); Chloride 110 mEq/L (98-107); Glucose 177 mg/dL (70-105); Osmolality,Calculated 288 (280-300); Potassium 3.5 mEq/L (3.5-5.1); Sodium 138 mEq/L (136-145); eGFR For African Americans > 60 (> 60); eGFR For Non-African Americans > 60 (> 60)
[2021-02-24 07:07] LABS: BUN/Creatinine Ratio 9 (6-26); Blood Urea Nitrogen 5 mg/dL (6-20); Calcium 8.2 mg/dL (8.6-10.3); Carbon Dioxide 20 mEq/L (23-29); Chloride 111 mEq/L (98-107); Glucose 211 mg/dL (70-105); Magnesium 1.6 mg/dL (1.6-2.6); Osmolality,Calculated 288 (280-300); Phosphorous 2.7 mg/dL (2.7-4.5); Potassium 3.7 mEq/L (3.5-5.1); Sodium 137 mEq/L (136-145); eGFR For African Americans > 60 (> 60); eGFR For Non-African Americans > 60 (> 60)
[2021-02-24] MEDS: cefTRIAXone 1,000 MG in 0.9 % Sodium Chloride Mini Bag 100 ML IVPB SCH (08:24)
[2021-02-24] MEDS: Insulin LISPRO 300 UNITS/3 ML VIAL SUBQ SCH ×4 (08:27→11:49)
[2021-02-24] MEDS ORDERED: Insulin DETEMIR 100 UNIT/ML X5UNITS SUBQ SCH (09:00)
[2021-02-24 11:03] VITALS: BP 115/63; PULSE 118; TEMP 98.5; O2SAT 99
[2021-02-24] MEDS ORDERED: *HR* Heparin 5,000 UNIT/ML VIAL SQ SCH (18:00)
== END 2021-02-24 15:42 | disposition home or self-care (01) ==
LOC: 2NNU 17:25 → EMEROOARM 17:25 → SUATTDRO 02-23 01:36 → 2NNU 02-23 02:24
PROVIDERS: ADMIT Student in an Organized Health Care Education/Training Program; ATTEND Family Medicine

== ENCOUNTER 2021-03-24 01:45 | Inpatient (IN) ==
[2021-03-24] MEDS ORDERED: 0.9 % Sodium Chloride 1,000 ML IVC ONE (02:04)
[2021-03-24] MEDS ORDERED: Ondansetron 4 MG/2 ML VIAL IVP ONE (02:04)
[2021-03-24 03:05] LABS: VBG HCO3 6 mEq/L (21-27); VBG PCO2 32 mmHg (41-51); VBG PH 6.91 pH Units (7.32-7.42); VBG PO2 40 mmHg (25-50)
[2021-03-24 03:05] LABS: Basophils # 0.1 K/mcL (0.0-0.2); Basophils % 0.7 %; Eosinophils # 0.1 K/mcL (0.0-0.6); Eosinophils % 0.5 %; Hematocrit 51.5 % (35.3-44.9); Hemoglobin 15.6 g/dL (11.5-15.4); Immature Granulocytes % 1.7 % (0-4); Lymphocytes # 1.7 K/mcL (0.6-4.6); Lymphocytes % 13.2 %; Mean Corpuscular HGB Conc 30.3 g/dL (31.6-35.5); Mean Corpuscular Hemoglobin 28.4 pg (28.0-33.3); Mean Platelet Volume 9.2 fL (9.4-12.4); Monocytes # 0.8 K/mcL (0.0-1.3); Monocytes % 5.8 %; Neutrophils # 10.3 K/mcL (1.6-8.9); Platelet Count 670 K/mcL (140-400); Red Cell Distribution Width 16.2 % (11.5-14.5); Segmented Neutrophils % 78.1 %; White Blood Count 13.2 K/mcL (4.3-11.1)
[2021-03-24 03:12] LABS: Mean Corpuscular Volume 93.6 fL (83.0-100.0)
[2021-03-24 03:23] LABS: Alanine Aminotransferase 16 Units/L (7-52); Albumin/Globulin Ratio 1.3 (1.1-2.2); Alkaline Phosphatase 120 Units/L (34-104); Aspartate Amino Transferase 19 Units/L (13-39); BUN/Creatinine Ratio 15 (6-26); Bilirubin,Indirect 0.3 mg/dL (0.0-1.0); Bilirubin,Total 0.3 mg/dL (0.3-1.0); Blood Urea Nitrogen 18 mg/dL (6-20); Calcium 9.8 mg/dL (8.6-10.3); Carbon Dioxide 6 mEq/L (23-29); Chloride 107 mEq/L (98-107); Globulin 3.9 g/dL (2.4-3.5); Glucose 474 mg/dL (70-105); Osmolality,Calculated 315 (280-300); Potassium 3.3 mEq/L (3.5-5.1); Sodium 141 mEq/L (136-145); Total Protein 8.9 g/dL (6.4-8.9); eGFR For African Americans > 60 (> 60); eGFR For Non-African Americans 57 (> 60)
[2021-03-24 03:38] LABS: Bilirubin,Urine Negative (Negative); Blood,Urine Negative (Negative); Clarity,Urine Clear (Clear); Color,Urine Colorless (Yellow); Glucose,Urine (UA) >=1000 mg/dL (Normal); Ketones,Urine >150 mg/dL (Negative); Leukocyte Esterase,Urine Negative (Negative); Nitrite,Urine Negative (Negative); PH,Urine 5.5 pH Units (5.0-8.0); Protein,Urine 30 mg/dL (Neg-Trace); RBC,Urine 0-3 per hpf (0-3); Specific Gravity,Urine 1.025 (1.010-1.025); Squamous Epithelial Cell,Urine Few per hpf (None-Few); Urobilinogen,Urine Normal (Normal)
[2021-03-24] MEDS ORDERED: SODIUM BICARBONATE IVC SCH (03:45)
[2021-03-24] MEDS ORDERED: SODIUM CHLORIDE 0.9% IVC SCH (03:45)
[2021-03-24] MEDS ORDERED: 0.9 % Sodium Chloride w KCl 20 MEQ/1,000 ML MLS IVC SCH ×3 (03:45→20:15)
[2021-03-24 04:06] LABS: Ethanol < 10 mg/dL (Less than 10); Magnesium 2.5 mg/dL (1.6-2.6)
[2021-03-24 04:10] LABS: Amphetamine Screen,Urine Negative ng/mL (Cutoff=1000); Barbiturate Screen,Urine Negative ng/mL (Cutoff=200); Benzodiazepines Screen,Urine Negative ng/mL (Cutoff=200); Cannabinoid Screen,Urine Negative ng/mL (Cutoff = 50); Cocaine Screen,Urine Negative ng/mL (Cutoff= 300); Opiate Screen,Urine Negative ng/mL (Cutoff=300); Phencyclidine Screen,Urine Negative ng/mL (Cutoff=25)
[2021-03-24] MEDS ORDERED: Naloxone 0.4 MG/ML INJ IVP PRN (05:49)
[2021-03-24] MEDS ORDERED: Insulin Regular, Human 100 UNIT/ML IV PRN ×2 (05:51)
[2021-03-24] MEDS ORDERED: D5% in 0.45% NACL w KCl 20 MEQ/1,000 ML MLS IVC PRN (05:51)
[2021-03-24] MEDS ORDERED: *HR* Dextrose 50 % in Water (Syg) 50 ML SYRINGE IVP PRN ×3 (05:58→20:01)
[2021-03-24] MEDS ORDERED: Insulin LISPRO 300 UNITS/3 ML VIAL SUBQ PRN ×4 (05:58→20:01)
[2021-03-24 06:24] LABS: Influenza A PCR Negative (Negative); Influenza B PCR Negative (Negative); Resp. Syncytial Virus PCR Negative (Negative)
[2021-03-24 06:25] LABS: SARS-CoV-2 by PCR (In House) Negative (Negative)
[2021-03-24 09:10] LABS: BUN/Creatinine Ratio 19 (6-26); Blood Urea Nitrogen 13 mg/dL (6-20); Calcium 8.2 mg/dL (8.6-10.3); Carbon Dioxide 20 mEq/L (23-29); Chloride 110 mEq/L (98-107); Glucose 96 mg/dL (70-105); Magnesium 1.9 mg/dL (1.6-2.6); Osmolality,Calculated 290 (280-300); Potassium 3.4 mEq/L (3.5-5.1); Sodium 140 mEq/L (136-145); eGFR For African Americans > 60 (> 60); eGFR For Non-African Americans > 60 (> 60)
[2021-03-24 09:34] LABS: ABG Base Excess -3 mEq/L (-2 to 3); ABG HCO3 21 mEq/L (21-27); ABG Oxygen Saturation 98 % (95-98); ABG PCO2 32 mmHg (35-45); ABG PH 7.42 pH Units (7.32-7.45); ABG PO2 95 mmHg (85-104); ABG TCO2 22 mEq/L (20-26)
[2021-03-24 15:11] LABS: BUN/Creatinine Ratio 17 (6-26); Blood Urea Nitrogen 12 mg/dL (6-20); Calcium 7.8 mg/dL (8.6-10.3); Carbon Dioxide 20 mEq/L (23-29); Chloride 109 mEq/L (98-107); Glucose 167 mg/dL (70-105); Osmolality,Calculated 290 (280-300); Potassium 3.4 mEq/L (3.5-5.1); Sodium 138 mEq/L (136-145); eGFR For African Americans > 60 (> 60); eGFR For Non-African Americans > 60 (> 60)
[2021-03-24] MEDS ORDERED: Insulin DETEMIR 100 UNIT/ML X5UNITS SUBQ ONE (15:22)
[2021-03-24] MEDS ORDERED: D5% in Water 1,000 ML IVC PRN (15:25)
[2021-03-24] MEDS ORDERED: Dextrose Gel 15 GM/37.5 ML TUBE PO PRN ×2 (15:25)
[2021-03-24] MEDS ORDERED: Melatonin 3 MG TABLET PO PRN (15:40)
[2021-03-24] MEDS: Insulin LISPRO 300 UNITS/3 ML VIAL SUBQ SCH ×2 (16:49→17:59)
[2021-03-24 19:18] LABS: BUN/Creatinine Ratio 11 (6-26); Blood Urea Nitrogen 11 mg/dL (6-20); Calcium 8.1 mg/dL (8.6-10.3); Carbon Dioxide 12 mEq/L (23-29); Chloride 104 mEq/L (98-107); Glucose 281 mg/dL (70-105); Osmolality,Calculated 288 (280-300); Potassium 3.1 mEq/L (3.5-5.1); Sodium 134 mEq/L (136-145); eGFR For African Americans > 60 (> 60); eGFR For Non-African Americans > 60 (> 60)
[2021-03-24] MEDS: *HR* Heparin 5,000 UNIT/ML VIAL SQ SCH (19:38)
[2021-03-24] MEDS ORDERED: Insulin LISPRO 300 UNITS/3 ML VIAL SUBQ ONE (20:01)
[2021-03-24] MEDS ORDERED: 0.9 % Sodium Chloride w KCl 20 MEQ/1,000 ML MLS IVC PRN ×2 (21:02)
[2021-03-24] MEDS: Insulin DETEMIR 100 UNIT/ML X5UNITS SUBQ SCH (21:03)
[2021-03-24] MEDS: 0.45 % Sodium Chloride w/KCl 20 MEQ/1,000 ML MLS IVC SCH ×5 (21:08→21:15)
[2021-03-24 21:20] LABS: BUN/Creatinine Ratio 13 (6-26); Blood Urea Nitrogen 11 mg/dL (6-20); Calcium 8.5 mg/dL (8.6-10.3); Carbon Dioxide 16 mEq/L (23-29); Chloride 105 mEq/L (98-107); Glucose 152 mg/dL (70-105); Osmolality,Calculated 278 (280-300); Potassium 3.6 mEq/L (3.5-5.1); Sodium 133 mEq/L (136-145); eGFR For African Americans > 60 (> 60); eGFR For Non-African Americans > 60 (> 60)
[2021-03-24] MEDS: D5% in 0.45% NACL w KCl 20 MEQ/1,000 ML MLS IVC PRN (21:21)
[2021-03-24 21:23] LABS: VBG HCO3 16 mEq/L (21-27); VBG PCO2 29 mmHg (41-51); VBG PH 7.36 pH Units (7.32-7.42); VBG PO2 168 mmHg (25-50)
[2021-03-25 01:22] LABS: VBG HCO3 21 mEq/L (21-27); VBG PCO2 41 mmHg (41-51); VBG PH 7.32 pH Units (7.32-7.42); VBG PO2 156 mmHg (25-50)
[2021-03-25 01:34] LABS: BUN/Creatinine Ratio 17 (6-26); Blood Urea Nitrogen 11 mg/dL (6-20); Calcium 8.7 mg/dL (8.6-10.3); Carbon Dioxide 20 mEq/L (23-29); Chloride 111 mEq/L (98-107); Glucose 73 mg/dL (70-105); Osmolality,Calculated 286 (280-300); Potassium 2.9 mEq/L (3.5-5.1); Sodium 139 mEq/L (136-145); eGFR For African Americans > 60 (> 60); eGFR For Non-African Americans > 60 (> 60)
[2021-03-25] MEDS: D5% in 0.45% NACL w KCl 20 MEQ/1,000 ML MLS IVC PRN ×4 (01:51→15:51)
[2021-03-25] MEDS: Insulin DETEMIR 100 UNIT/ML X5UNITS SUBQ SCH ×3 (01:59→20:19)
[2021-03-25] MEDS: *HR* Heparin 5,000 UNIT/ML VIAL SQ SCH ×2 (04:42→19:25)
[2021-03-25 08:21] LABS: VBG HCO3 16 mEq/L (21-27); VBG PCO2 26 mmHg (41-51); VBG PH 7.41 pH Units (7.32-7.42); VBG PO2 152 mmHg (25-50)
[2021-03-25 09:49] LABS: Hematocrit 32.2 % (35.3-44.9); Hemoglobin 10.8 g/dL (11.5-15.4); Mean Corpuscular HGB Conc 33.5 g/dL (31.6-35.5); Mean Corpuscular Hemoglobin 29.6 pg (28.0-33.3); Mean Corpuscular Volume 88.2 fL (83.0-100.0); Mean Platelet Volume 9.1 fL (9.4-12.4); Platelet Count 308 K/mcL (140-400); Red Blood Count 3.65 M/mcL (3.82-4.97); Red Cell Distribution Width 16.6 % (11.5-14.5); White Blood Count 4.4 K/mcL (4.3-11.1)
[2021-03-25 10:08] LABS: BUN/Creatinine Ratio 13 (6-26); Blood Urea Nitrogen 8 mg/dL (6-20); Calcium 8.3 mg/dL (8.6-10.3); Carbon Dioxide 16 mEq/L (23-29); Chloride 110 mEq/L (98-107); Glucose 188 mg/dL (70-105); Osmolality,Calculated 287 (280-300); Potassium 3.7 mEq/L (3.5-5.1); Sodium 137 mEq/L (136-145); eGFR For African Americans > 60 (> 60); eGFR For Non-African Americans > 60 (> 60)
[2021-03-25] MEDS: Insulin LISPRO 300 UNITS/3 ML VIAL SUBQ SCH ×2 (12:14→17:03)
[2021-03-25 14:02] LABS: VBG HCO3 16 mEq/L (21-27); VBG PCO2 23 mmHg (41-51); VBG PH 7.46 pH Units (7.32-7.42); VBG PO2 167 mmHg (25-50)
[2021-03-25 14:44] LABS: BUN/Creatinine Ratio 10 (6-26); Blood Urea Nitrogen 6 mg/dL (6-20); Calcium 8.5 mg/dL (8.6-10.3); Carbon Dioxide 12 mEq/L (23-29); Chloride 110 mEq/L (98-107); Glucose 101 mg/dL (70-105); Osmolality,Calculated 280 (280-300); Potassium 3.7 mEq/L (3.5-5.1); Sodium 136 mEq/L (136-145); eGFR For African Americans > 60 (> 60); eGFR For Non-African Americans > 60 (> 60)
[2021-03-25] MEDS ORDERED: Insulin DETEMIR 100 UNIT/ML X5UNITS SUBQ ONE ×2 (15:36→20:17)
[2021-03-25] MEDS: Ringers Solution, Lactated 1,000 ML IVC SCH ×2 (19:07→22:56)
[2021-03-26 01:03] LABS: Hematocrit 34.5 % (35.3-44.9); Mean Corpuscular HGB Conc 31.9 g/dL (31.6-35.5); Mean Corpuscular Hemoglobin 28.5 pg (28.0-33.3); Mean Corpuscular Volume 89.4 fL (83.0-100.0); Mean Platelet Volume 9.2 fL (9.4-12.4); Platelet Count 292 K/mcL (140-400); Red Blood Count 3.86 M/mcL (3.82-4.97); Red Cell Distribution Width 16.9 % (11.5-14.5); White Blood Count 4.6 K/mcL (4.3-11.1)
[2021-03-26 01:07] LABS: VBG HCO3 18 mEq/L (21-27); VBG PCO2 26 mmHg (41-51); VBG PH 7.45 pH Units (7.32-7.42); VBG PO2 152 mmHg (25-50)
[2021-03-26 01:22] LABS: BUN/Creatinine Ratio 12 (6-26); Blood Urea Nitrogen 9 mg/dL (6-20); Calcium 8.4 mg/dL (8.6-10.3); Carbon Dioxide 18 mEq/L (23-29); Chloride 104 mEq/L (98-107); Glucose 303 mg/dL (70-105); Osmolality,Calculated 288 (280-300); Potassium 4.4 mEq/L (3.5-5.1); Sodium 134 mEq/L (136-145); eGFR For African Americans > 60 (> 60); eGFR For Non-African Americans > 60 (> 60)
[2021-03-26] MEDS ORDERED: Insulin LISPRO 300 UNITS/3 ML VIAL SUBQ ONE (01:49)
[2021-03-26] MEDS: *HR* Heparin 5,000 UNIT/ML VIAL SQ SCH ×2 (05:18→18:09)
[2021-03-26 07:48] LABS: BUN/Creatinine Ratio 13 (6-26); Blood Urea Nitrogen 8 mg/dL (6-20); Calcium 8.8 mg/dL (8.6-10.3); Carbon Dioxide 23 mEq/L (23-29); Chloride 110 mEq/L (98-107); Glucose 66 mg/dL (70-105); Osmolality,Calculated 291 (280-300); Sodium 142 mEq/L (136-145); eGFR For African Americans > 60 (> 60); eGFR For Non-African Americans > 60 (> 60)
[2021-03-26] MEDS: Insulin LISPRO 300 UNITS/3 ML VIAL SUBQ SCH ×3 (07:58→18:09)
[2021-03-26] MEDS: Insulin DETEMIR 100 UNIT/ML X5UNITS SUBQ SCH (10:07)
[2021-03-26 15:21] VITALS: BP 107/71; PULSE 106; TEMP 98; O2SAT 97
[2021-03-26] MEDS ORDERED: Insulin LISPRO 300 UNITS/3 ML VIAL SUBQ SCH (17:00)
[2021-03-26] MEDS ORDERED: Insulin DETEMIR 100 UNIT/ML X5UNITS SUBQ SCH (21:00)
== END 2021-03-26 20:06 | disposition home or self-care (01) | DRG 420 ==
LOC: 2NNU 01:45 → EMEROOARM 01:45 → SUATTDRO 05:37 → 2NNU 06:20 → 3ANU 03-26 10:43
PROVIDERS: ADMIT Internal Medicine; ATTEND Internal Medicine

== ENCOUNTER 2021-04-25 18:57 | Observation (INO) ==
[2021-04-25] MEDS ORDERED: Insulin Regular, Human 100 UNIT/ML IV ONE (19:09)
[2021-04-25] MEDS ORDERED: *HR* Dextrose 50 % in Water (Syg) 50 ML SYRINGE IVP PRN (19:09)
[2021-04-25 19:34] LABS: Hemoglobin 13.5 g/dL (11.5-15.4); Immature Granulocytes % 0.9 % (0-4); Red Cell Distribution Width 13.8 % (11.5-14.5)
[2021-04-25] MEDS: 0.9 % Sodium Chloride 1,000 ML IVC SCH ×2 (19:34→21:51)
[2021-04-25 19:40] LABS: Basophils # 0.1 K/mcL (0.0-0.2); Basophils % 0.7 %; Eosinophils # 0.2 K/mcL (0.0-0.6); Hematocrit 44.2 % (35.3-44.9); Lymphocytes # 4.1 K/mcL (0.6-4.6); Lymphocytes % 27.9 %; Mean Corpuscular HGB Conc 30.5 g/dL (31.6-35.5); Mean Corpuscular Hemoglobin 29.9 pg (28.0-33.3); Mean Platelet Volume 9.8 fL (9.4-12.4); Monocytes # 0.9 K/mcL (0.0-1.3); Monocytes % 6.4 %; Neutrophils # 9.2 K/mcL (1.6-8.9); Platelet Count 717 K/mcL (140-400); Red Blood Count 4.51 M/mcL (3.82-4.97); Segmented Neutrophils % 63.1 %; White Blood Count 14.6 K/mcL (4.3-11.1)
[2021-04-25] MEDS ORDERED: Insulin Human Regular 7 UNIT in 0.9 % Sodium Chloride 10 ML IV ONE (19:45)
[2021-04-25] MEDS ORDERED: Ondansetron 4 MG/2 ML VIAL IVP ONE ×2 (19:58→20:49)
[2021-04-25 20:27] LABS: Alanine Aminotransferase 11 Units/L (7-52); Albumin 4.3 g/dL (3.5-5.7); Albumin/Globulin Ratio 1.4 (1.1-2.2); Alkaline Phosphatase 114 Units/L (34-104); Aspartate Amino Transferase 13 Units/L (13-39); BUN/Creatinine Ratio 16 (6-26); Bilirubin,Total 0.3 mg/dL (0.3-1.0); Blood Urea Nitrogen 19 mg/dL (6-20); Calcium 9.5 mg/dL (8.6-10.3); Chloride 97 mEq/L (98-107); Globulin 3.1 g/dL (2.4-3.5); Osmolality,Calculated 325 (280-300); Phosphorous 5.8 mg/dL (2.7-4.5); Potassium 4.6 mEq/L (3.5-5.1); Salicylate < 2.5 mg/dL (15.0-30.0); Sodium 135 mEq/L (136-145); Total Protein 7.4 g/dL (6.4-8.9); Troponin I < 0.03 ng/mL (< 0.04); eGFR For African Americans > 60 (> 60); eGFR For Non-African Americans 58 (> 60)
[2021-04-25] MEDS ORDERED: 0.9 % Sodium Chloride 1,000 ML IVC ONE (20:39)
[2021-04-25] MEDS ORDERED: POTASSIUM CHLORIDE IN 0.9%NACL 40 MEQ/1,000 ML IV.SOLN IV STA (21:14)
[2021-04-25] MEDS ORDERED: 0.9 % Sodium Chloride w KCl 20 MEQ/1,000 ML MLS IVC STA (21:19)
[2021-04-25] MEDS ORDERED: 0.9 % Sodium Chloride w KCl 40 MEQ/1,000 ML MLS IVC STA (21:19)
[2021-04-25] MEDS ORDERED: Naloxone 0.4 MG/ML INJ IVP PRN (21:35)
[2021-04-25] MEDS ORDERED: Ondansetron 4 MG/2 ML VIAL IVP PRN (21:35)
[2021-04-25] MEDS ORDERED: Melatonin 3 MG TABLET PO PRN (21:35)
[2021-04-25] MEDS ORDERED: Acetaminophen 325 MG TABLET PO PRN (21:35)
[2021-04-25 21:42] LABS: Bacteria,Urine Few per hpf (None-Few); Bilirubin,Urine Negative (Negative); Blood,Urine Negative (Negative); Clarity,Urine Clear (Clear); Color,Urine Colorless (Yellow); Glucose,Urine (UA) >=1000 mg/dL (Normal); Ketones,Urine >150 mg/dL (Negative); Leukocyte Esterase,Urine Negative (Negative); Mucus,Urine Few per lpf (None-Few); Nitrite,Urine Negative (Negative); PH,Urine 5.5 pH Units (5.0-8.0); Protein,Urine 30 mg/dL (Neg-Trace); RBC,Urine 0-3 per hpf (0-3); Specific Gravity,Urine 1.024 (1.010-1.025); Squamous Epithelial Cell,Urine Few per hpf (None-Few); Urobilinogen,Urine Normal (Normal); WBC,Urine 0-3 per hpf (0-3)
[2021-04-25 21:51] LABS: Amphetamine Screen,Urine Negative ng/mL (Cutoff=1000); Barbiturate Screen,Urine Negative ng/mL (Cutoff=200); Benzodiazepines Screen,Urine Negative ng/mL (Cutoff=200); Cannabinoid Screen,Urine Negative ng/mL (Cutoff = 50); Cocaine Screen,Urine Negative ng/mL (Cutoff= 300); Opiate Screen,Urine Negative ng/mL (Cutoff=300); Phencyclidine Screen,Urine Negative ng/mL (Cutoff=25)
[2021-04-25 22:35] LABS: Magnesium 2.7 mg/dL (1.6-2.6)
[2021-04-25 23:08] LABS: Carbon Dioxide 5 mEq/L (23-29)
[2021-04-25 23:09] LABS: Glucose 865 mg/dL (70-105)
[2021-04-25] MEDS: D5% in 0.45% NACL w KCl 20 MEQ/1,000 ML MLS IVC SCH (23:59)
[2021-04-26 00:19] LABS: VBG HCO3 11 mEq/L (21-27); VBG PCO2 29 mmHg (41-51); VBG PH 7.16 pH Units (7.32-7.42); VBG PO2 50 mmHg (25-50)
[2021-04-26 00:37] LABS: BUN/Creatinine Ratio 18 (6-26); Blood Urea Nitrogen 16 mg/dL (6-20); Calcium 8.1 mg/dL (8.6-10.3); Carbon Dioxide 10 mEq/L (23-29); Chloride 121 mEq/L (98-107); Glucose 194 mg/dL (70-105); Magnesium 2.1 mg/dL (1.6-2.6); Osmolality,Calculated 304 (280-300); Phosphorous 1.4 mg/dL (2.7-4.5); Potassium 3.6 mEq/L (3.5-5.1); Sodium 144 mEq/L (136-145); eGFR For African Americans > 60 (> 60); eGFR For Non-African Americans > 60 (> 60)
[2021-04-26] MEDS: D5% in 0.45% NACL w KCl 20 MEQ/1,000 ML MLS IVC SCH ×3 (02:03→10:44)
[2021-04-26 04:59] LABS: VBG HCO3 18 mEq/L (21-27); VBG PCO2 39 mmHg (41-51); VBG PH 7.27 pH Units (7.32-7.42); VBG PO2 52 mmHg (25-50)
[2021-04-26 05:18] LABS: Magnesium 1.8 mg/dL (1.6-2.6); Phosphorous 1.2 mg/dL (2.7-4.5)
[2021-04-26 05:19] LABS: BUN/Creatinine Ratio 18 (6-26); Blood Urea Nitrogen 13 mg/dL (6-20); Calcium 7.8 mg/dL (8.6-10.3); Carbon Dioxide 17 mEq/L (23-29); Chloride 117 mEq/L (98-107); Glucose 72 mg/dL (70-105); Osmolality,Calculated 291 (280-300); Potassium 3.6 mEq/L (3.5-5.1); Sodium 141 mEq/L (136-145); eGFR For African Americans > 60 (> 60); eGFR For Non-African Americans > 60 (> 60)
[2021-04-26 05:49] LABS: Basophils % 0.4 %; Eosinophils % 0.1 %; Hemoglobin 10.6 g/dL (11.5-15.4); Immature Granulocytes % 1.4 % (0-4); Lymphocytes # 2.4 K/mcL (0.6-4.6); Lymphocytes % 21.2 %; Mean Corpuscular HGB Conc 32.1 g/dL (31.6-35.5); Mean Corpuscular Hemoglobin 29.5 pg (28.0-33.3); Mean Corpuscular Volume 91.9 fL (83.0-100.0); Mean Platelet Volume 8.9 fL (9.4-12.4); Monocytes # 1.4 K/mcL (0.0-1.3); Monocytes % 12.6 %; Neutrophils # 7.1 K/mcL (1.6-8.9); Platelet Count 465 K/mcL (140-400); Red Blood Count 3.59 M/mcL (3.82-4.97); Red Cell Distribution Width 13.9 % (11.5-14.5); Segmented Neutrophils % 64.3 %; White Blood Count 11.1 K/mcL (4.3-11.1)
[2021-04-26] MEDS ORDERED: Insulin DETEMIR 100 UNIT/ML X5UNITS SUBQ SCH ×2 (06:00→21:00)
[2021-04-26] MEDS ORDERED: Insulin LISPRO 300 UNITS/3 ML VIAL SUBQ SCH ×2 (07:30→21:00)
[2021-04-26 10:25] LABS: VBG HCO3 14 mEq/L (21-27); VBG PCO2 26 mmHg (41-51); VBG PH 7.34 pH Units (7.32-7.42); VBG PO2 165 mmHg (25-50)
[2021-04-26 10:47] LABS: Blood Urea Nitrogen 11 mg/dL (6-20); Calcium 7.6 mg/dL (8.6-10.3); Carbon Dioxide 15 mEq/L (23-29); Chloride 108 mEq/L (98-107); Glucose 235 mg/dL (70-105); Magnesium 1.6 mg/dL (1.6-2.6); Osmolality,Calculated 285 (280-300); Phosphorous 2.4 mg/dL (2.7-4.5); Potassium 4.3 mEq/L (3.5-5.1); Sodium 134 mEq/L (136-145)
[2021-04-26] MEDS ORDERED: Ondansetron 4 MG/2 ML VIAL IVP PRN (11:20)
[2021-04-26] MEDS ORDERED: 0.9 % Sodium Chloride w KCl 40 MEQ/1,000 ML MLS IVC STA (11:20)
[2021-04-26] MEDS ORDERED: *HR* Dextrose 50 % in Water (Syg) 50 ML SYRINGE IVP PRN ×2 (11:20→11:55)
[2021-04-26] MEDS ORDERED: Insulin DETEMIR 100 UNIT/ML X5UNITS SUBQ ONE (11:20)
[2021-04-26 11:40] LABS: BUN/Creatinine Ratio 13 (6-26); eGFR For African Americans > 60 (> 60); eGFR For Non-African Americans > 60 (> 60)
[2021-04-26] MEDS ORDERED: Dextrose Gel 15 GM/37.5 ML TUBE PO PRN ×2 (11:55)
[2021-04-26] MEDS ORDERED: D5% in Water 1,000 ML IVC PRN (11:55)
[2021-04-26] MEDS: Insulin LISPRO 300 UNITS/3 ML VIAL SUBQ SCH ×4 (12:09→17:20)
[2021-04-26 16:08] VITALS: BP 126/77; PULSE 102; TEMP 97.7; O2SAT 97
== END 2021-04-26 18:14 | disposition home or self-care (01) ==
LOC: EMEROOARM 18:57 → ICNU 18:57 → SUATTDRO 22:11 → ICNU 22:45 → 3BNU 04-26 16:04
PROVIDERS: ADMIT Internal Medicine; ATTEND Internal Medicine

== ENCOUNTER 2021-06-05 15:52 | Inpatient (IN) ==
[2021-06-05] MEDS ORDERED: Ondansetron 4 MG/2 ML VIAL IVP ONE (16:56)
[2021-06-05] MEDS ORDERED: Ondansetron ODT 4 MG TAB.RAPDIS SL ONE (17:33)
[2021-06-05 18:27] LABS: Basophils # 0.1 K/mcL (0.0-0.2); Basophils % 0.7 %; Eosinophils # 0.1 K/mcL (0.0-0.6); Eosinophils % 0.4 %; Hematocrit 45.4 % (35.3-44.9); Hemoglobin 13.6 g/dL (11.5-15.4); Immature Granulocytes % 2.2 % (0-4); Lymphocytes # 3.8 K/mcL (0.6-4.6); Lymphocytes % 17.8 %; Mean Platelet Volume 9.7 fL (9.4-12.4); Monocytes % 4.9 %; Neutrophils # 15.8 K/mcL (1.6-8.9); Platelet Count 813 K/mcL (140-400); Red Blood Count 4.54 M/mcL (3.82-4.97); Red Cell Distribution Width 13.2 % (11.5-14.5); White Blood Count 21.3 K/mcL (4.3-11.1)
[2021-06-05 18:39] LABS: VBG HCO3 3 mEq/L (21-27); VBG PCO2 15 mmHg (41-51); VBG PH 6.84 pH Units (7.32-7.42); VBG PO2 130 mmHg (25-50)
[2021-06-05] MEDS ORDERED: cefTRIAXone 1,000 MG in 0.9 % Sodium Chloride 10 ML IVP ONE (18:43)
[2021-06-05] MEDS: 0.9 % Sodium Chloride 1,000 ML IVC SCH ×3 (19:04→23:09)
[2021-06-05 19:35] LABS: Alanine Aminotransferase 11 Units/L (7-52); Albumin 4.5 g/dL (3.5-5.7); Albumin/Globulin Ratio 1.4 (1.1-2.2); Alkaline Phosphatase 115 Units/L (34-104); Aspartate Amino Transferase 13 Units/L (13-39); BUN/Creatinine Ratio 18 (6-26); Bilirubin,Total 0.3 mg/dL (0.3-1.0); Blood Urea Nitrogen 21 mg/dL (6-20); Calcium 9.2 mg/dL (8.6-10.3); Chloride 96 mEq/L (98-107); Globulin 3.3 g/dL (2.4-3.5); Magnesium 2.6 mg/dL (1.6-2.6); Potassium 5.1 mEq/L (3.5-5.1); Sodium 133 mEq/L (136-145); Thyroid Stimulating Hormone 0.366 mcIU/mL (0.340-5.600); Total Protein 7.8 g/dL (6.4-8.9); Troponin I < 0.03 ng/mL (< 0.04); eGFR For African Americans > 60 (> 60); eGFR For Non-African Americans 57 (> 60)
[2021-06-05 20:01] LABS: Influenza A PCR Negative (Negative); Influenza B PCR Negative (Negative); Resp. Syncytial Virus PCR Negative (Negative)
[2021-06-05 20:10] LABS: Glucose 895 mg/dL (70-105); Osmolality,Calculated 323 (280-300)
[2021-06-05] MEDS ORDERED: 0.9 % Sodium Chloride 1,000 ML IV ONE (20:23)
[2021-06-05 20:37] LABS: Bilirubin,Urine Negative (Negative); Blood,Urine Negative (Negative); Clarity,Urine Clear (Clear); Color,Urine Colorless (Yellow); Glucose,Urine (UA) >=1000 mg/dL (Normal); Ketones,Urine >150 mg/dL (Negative); Leukocyte Esterase,Urine Negative (Negative); Mucus,Urine Few per lpf (None-Few); Nitrite,Urine Negative (Negative); PH,Urine 5.5 pH Units (5.0-8.0); Protein,Urine Trace mg/dL (Neg-Trace); RBC,Urine 0-3 per hpf (0-3); Specific Gravity,Urine 1.025 (1.010-1.025); Squamous Epithelial Cell,Urine Few per hpf (None-Few); Urobilinogen,Urine Normal (Normal); WBC,Urine 0-3 per hpf (0-3)
[2021-06-05 20:58] LABS: SARS-CoV-2 by PCR (In House) Negative (Negative)
[2021-06-05] MEDS ORDERED: Ondansetron 4 MG/2 ML VIAL IVP PRN (22:34)
[2021-06-05] MEDS ORDERED: *HR* Promethazine 25 MG/ML VIAL IM PRN (22:34)
[2021-06-05] MEDS ORDERED: Acetaminophen 325 MG TABLET PO PRN (22:34)
[2021-06-05] MEDS ORDERED: Melatonin 3 MG TABLET PO PRN (22:34)
[2021-06-05] MEDS ORDERED: Naloxone 0.4 MG/ML INJ IVP PRN (22:34)
[2021-06-05] MEDS ORDERED: Insulin Regular, Human 100 UNIT/ML IV PRN (22:40)
[2021-06-05] MEDS ORDERED: D5% in 0.45% NACL 1,000 ML IVC PRN (22:40)
[2021-06-05] MEDS ORDERED: *HR* Dextrose 50 % in Water (Syg) 50 ML SYRINGE IVP PRN (22:40)
[2021-06-05 22:55] LABS: Carbon Dioxide 4 mEq/L (23-29)
[2021-06-05 22:59] LABS: Amphetamine Screen,Urine Negative ng/mL (Cutoff=1000); Barbiturate Screen,Urine Negative ng/mL (Cutoff=200); Benzodiazepines Screen,Urine Negative ng/mL (Cutoff=200); Cannabinoid Screen,Urine Negative ng/mL (Cutoff = 50); Cocaine Screen,Urine Negative ng/mL (Cutoff= 300); Opiate Screen,Urine Negative ng/mL (Cutoff=300); Phencyclidine Screen,Urine Negative ng/mL (Cutoff=25)
[2021-06-05 23:34] LABS: VBG HCO3 3 mEq/L (21-27); VBG PCO2 17 mmHg (41-51); VBG PH 6.78 pH Units (7.32-7.42); VBG PO2 113 mmHg (25-50)
[2021-06-05 23:53] LABS: BUN/Creatinine Ratio 16 (6-26); Blood Urea Nitrogen 20 mg/dL (6-20); Calcium 7.9 mg/dL (8.6-10.3); Carbon Dioxide 4 mEq/L (23-29); Chloride 115 mEq/L (98-107); Glucose 519 mg/dL (70-105); Osmolality,Calculated 326 (280-300); Potassium 4.1 mEq/L (3.5-5.1); Sodium 145 mEq/L (136-145); eGFR For African Americans > 60 (> 60); eGFR For Non-African Americans 54 (> 60)
[2021-06-06] MEDS: Sodium Bicarbonate 150 MEQ in Water for inj. (sterile) 1,000 ML IVC SCH ×2 (00:06→07:36)
[2021-06-06] MEDS: 0.9 % Sodium Chloride 1,000 ML IVC SCH ×6 (00:17→02:48)
[2021-06-06] MEDS: 0.9 % Sodium Chloride w KCl 20 MEQ/1,000 ML MLS IVC SCH ×3 (01:22→22:46)
[2021-06-06 01:54] LABS: VBG HCO3 5 mEq/L (21-27); VBG PCO2 20 mmHg (41-51); VBG PH 7.05 pH Units (7.32-7.42); VBG PO2 66 mmHg (25-50)
[2021-06-06 02:14] LABS: BUN/Creatinine Ratio 17 (6-26); Blood Urea Nitrogen 17 mg/dL (6-20); Carbon Dioxide 5 mEq/L (23-29); Chloride 121 mEq/L (98-107); Glucose 236 mg/dL (70-105); Osmolality,Calculated 317 (280-300); Sodium 149 mEq/L (136-145); eGFR For African Americans > 60 (> 60); eGFR For Non-African Americans > 60 (> 60)
[2021-06-06] MEDS ORDERED: *HR* Dextrose 50 % in Water (Syg) 50 ML SYRINGE IVP PRN ×2 (03:07→18:01)
[2021-06-06] MEDS: D5% in 0.45% NACL w KCl 20 MEQ/1,000 ML MLS IVC PRN ×4 (03:14→15:17)
[2021-06-06] MEDS ORDERED: 0.45 % Sodium Chloride w/KCl 20 MEQ/1,000 ML MLS IVC SCH (03:15)
[2021-06-06 04:55] LABS: BUN/Creatinine Ratio 14 (6-26); Blood Urea Nitrogen 13 mg/dL (6-20); Carbon Dioxide 9 mEq/L (23-29); Chloride 123 mEq/L (98-107); Glucose 144 mg/dL (70-105); Magnesium 1.7 mg/dL (1.6-2.6); Osmolality,Calculated 313 (280-300); Sodium 150 mEq/L (136-145); eGFR For African Americans > 60 (> 60); eGFR For Non-African Americans > 60 (> 60)
[2021-06-06 05:29] LABS: Basophils # 0.1 K/mcL (0.0-0.2); Basophils % 0.4 %; Hematocrit 31.8 % (35.3-44.9); Hemoglobin 10.6 g/dL (11.5-15.4); Immature Granulocytes % 4.1 % (0-4); Lymphocytes # 1.8 K/mcL (0.6-4.6); Lymphocytes % 9.9 %; Mean Corpuscular HGB Conc 33.3 g/dL (31.6-35.5); Mean Corpuscular Hemoglobin 30.3 pg (28.0-33.3); Mean Corpuscular Volume 90.9 fL (83.0-100.0); Monocytes # 1.6 K/mcL (0.0-1.3); Monocytes % 8.4 %; Neutrophils # 14.3 K/mcL (1.6-8.9); Platelet Count 445 K/mcL (140-400); Red Cell Distribution Width 13.1 % (11.5-14.5); Segmented Neutrophils % 77.2 %; White Blood Count 18.5 K/mcL (4.3-11.1)
[2021-06-06] MEDS ORDERED: *HR* Enoxaparin 40 MG/0.4 ML SYRINGE SQ SCH (06:00)
[2021-06-06 08:11] LABS: VBG HCO3 14 mEq/L (21-27); VBG PCO2 28 mmHg (41-51); VBG PH 7.31 pH Units (7.32-7.42); VBG PO2 106 mmHg (25-50)
[2021-06-06 08:27] LABS: BUN/Creatinine Ratio 13 (6-26); Blood Urea Nitrogen 11 mg/dL (6-20); Carbon Dioxide 14 mEq/L (23-29); Chloride 120 mEq/L (98-107); Glucose 151 mg/dL (70-105); Osmolality,Calculated 310 (280-300); Potassium 3.4 mEq/L (3.5-5.1); Sodium 149 mEq/L (136-145); eGFR For African Americans > 60 (> 60); eGFR For Non-African Americans > 60 (> 60)
[2021-06-06] MEDS ORDERED: Insulin DETEMIR 100 UNIT/ML X5UNITS SUBQ SCH (11:45)
[2021-06-06] MEDS: Insulin LISPRO 300 UNITS/3 ML VIAL SUBQ SCH ×7 (12:29→22:47)
[2021-06-06 12:40] LABS: VBG HCO3 14 mEq/L (21-27); VBG PCO2 26 mmHg (41-51); VBG PH 7.34 pH Units (7.32-7.42); VBG PO2 197 mmHg (25-50)
[2021-06-06 12:51] LABS: BUN/Creatinine Ratio 11 (6-26); Blood Urea Nitrogen 9 mg/dL (6-20); Carbon Dioxide 15 mEq/L (23-29); Chloride 112 mEq/L (98-107); Glucose 186 mg/dL (70-105); Osmolality,Calculated 296 (280-300); Potassium 3.3 mEq/L (3.5-5.1); Sodium 141 mEq/L (136-145); eGFR For African Americans > 60 (> 60); eGFR For Non-African Americans > 60 (> 60)
[2021-06-06 17:11] LABS: BUN/Creatinine Ratio 10 (6-26); Blood Urea Nitrogen 9 mg/dL (6-20); Calcium 7.2 mg/dL (8.6-10.3); Carbon Dioxide 15 mEq/L (23-29); Chloride 108 mEq/L (98-107); Glucose 294 mg/dL (70-105); Osmolality,Calculated 290 (280-300); Potassium 3.8 mEq/L (3.5-5.1); Sodium 135 mEq/L (136-145); eGFR For African Americans > 60 (> 60); eGFR For Non-African Americans > 60 (> 60)
[2021-06-06] MEDS ORDERED: Melatonin 3 MG TABLET PO PRN (18:01)
[2021-06-06] MEDS ORDERED: Naloxone 0.4 MG/ML INJ IVP PRN (18:01)
[2021-06-06] MEDS ORDERED: Acetaminophen 325 MG TABLET PO PRN (18:01)
[2021-06-06] MEDS ORDERED: Ondansetron 4 MG/2 ML VIAL IVP PRN (18:01)
[2021-06-06] MEDS ORDERED: *HR* Promethazine 25 MG/ML VIAL IM PRN (18:01)
[2021-06-06] MEDS: Insulin DETEMIR 100 UNIT/ML X5UNITS SUBQ SCH (21:08)
[2021-06-07 04:12] LABS: BUN/Creatinine Ratio 17 (6-26); Blood Urea Nitrogen 12 mg/dL (6-20); Carbon Dioxide 17 mEq/L (23-29); Chloride 111 mEq/L (98-107); Glucose 122 mg/dL (70-105); Osmolality,Calculated 287 (280-300); Potassium 4.1 mEq/L (3.5-5.1); Sodium 138 mEq/L (136-145); eGFR For African Americans > 60 (> 60); eGFR For Non-African Americans > 60 (> 60)
[2021-06-07] MEDS ORDERED: *HR* Enoxaparin 40 MG/0.4 ML SYRINGE SQ SCH (06:00)
[2021-06-07] MEDS: Insulin LISPRO 300 UNITS/3 ML VIAL SUBQ SCH ×4 (08:42→12:02)
[2021-06-07] MEDS: Insulin DETEMIR 100 UNIT/ML X5UNITS SUBQ SCH (08:43)
[2021-06-07 11:14] VITALS: BP 120/73; PULSE 118; TEMP 98.4; O2SAT 99
== END 2021-06-07 14:49 | disposition home or self-care (01) ==
LOC: ICNU 15:52 → EMEROOARM 15:52 → SUATTDRO 22:21 → ICNU 22:22 → 3BNU 06-06 17:13
PROVIDERS: ADMIT Internal Medicine; ATTEND Internal Medicine

== ENCOUNTER 2021-07-24 14:17 | Inpatient (IN) ==
[2021-07-24] MEDS ORDERED: *HR* Dextrose 50 % in Water (Syg) 50 ML SYRINGE IVP PRN ×2 (15:04→20:05)
[2021-07-24 15:25] LABS: Bilirubin,Urine Negative (Negative); Blood,Urine Negative (Negative); Clarity,Urine Turbid (Clear); Color,Urine Colorless (Yellow); Glucose,Urine (UA) >=1000 mg/dL (Normal); Ketones,Urine >150 mg/dL (Negative); Leukocyte Esterase,Urine Negative (Negative); Mucus,Urine Few per lpf (None-Few); Nitrite,Urine Negative (Negative); PH,Urine 5.5 pH Units (5.0-8.0); Protein,Urine Trace mg/dL (Neg-Trace); RBC,Urine 0-3 per hpf (0-3); Squamous Epithelial Cell,Urine Moderate per hpf (None-Few); Urobilinogen,Urine Normal (Normal); WBC,Urine 0-3 per hpf (0-3)
[2021-07-24] MEDS: 0.9 % Sodium Chloride 1,000 ML IVC SCH ×3 (16:41→20:46)
[2021-07-24 16:54] LABS: Basophils # 0.3 K/mcL (0.0-0.2); Basophils % 1.2 %; Eosinophils # 0.2 K/mcL (0.0-0.6); Eosinophils % 0.9 %; Hematocrit 49.7 % (35.3-44.9); Hemoglobin 14.5 g/dL (11.5-15.4); Immature Granulocytes % 2.6 % (0-4); Lymphocytes % 23.5 %; Mean Corpuscular HGB Conc 29.2 g/dL (31.6-35.5); Mean Corpuscular Hemoglobin 30.3 pg (28.0-33.3); Mean Platelet Volume 9.7 fL (9.4-12.4); Monocytes # 0.8 K/mcL (0.0-1.3); Monocytes % 3.9 %; Neutrophils # 14.5 K/mcL (1.6-8.9); Platelet Count 789 K/mcL (140-400); Red Blood Count 4.78 M/mcL (3.82-4.97); Red Cell Distribution Width 13.2 % (11.5-14.5); Segmented Neutrophils % 67.9 %; White Blood Count 21.3 K/mcL (4.3-11.1)
[2021-07-24] MEDS ORDERED: Insulin Regular, Human 100 UNIT/ML IV ONE (16:55)
[2021-07-24 18:02] LABS: Troponin I < 0.03 ng/mL (< 0.04)
[2021-07-24 18:20] LABS: Estimated Average Glucose 329 mg/dl; Hemoglobin A1C 13.1 %
[2021-07-24 18:29] LABS: BUN/Creatinine Ratio 15 (6-26); Blood Urea Nitrogen 16 mg/dL (6-20); Calcium 9.5 mg/dL (8.6-10.3); Carbon Dioxide < 4 mEq/L (23-29); Chloride 97 mEq/L (98-107); Magnesium 2.7 mg/dL (1.6-2.6); Osmolality,Calculated 316 (280-300); Phosphorous 7.5 mg/dL (2.7-4.5); Potassium 5.9 mEq/L (3.5-5.1); Sodium 133 mEq/L (136-145); eGFR For African Americans > 60 (> 60); eGFR For Non-African Americans > 60 (> 60)
[2021-07-24 18:30] LABS: Glucose 803 mg/dL (70-105)
[2021-07-24] MEDS ORDERED: Naloxone 0.4 MG/ML INJ IVP PRN (20:02)
[2021-07-24] MEDS ORDERED: D5% in 0.45% NACL 1,000 ML IVC PRN (20:05)
[2021-07-24 21:19] LABS: VBG HCO3 3 mEq/L (21-27); VBG Ionized Calcium 1.15 mmol/L (1.15-1.35); VBG PCO2 17 mmHg (41-51); VBG PH 6.92 pH Units (7.32-7.42); VBG PO2 86 mmHg (25-50)
[2021-07-24 21:24] LABS: BUN/Creatinine Ratio 16 (6-26); Blood Urea Nitrogen 16 mg/dL (6-20); Calcium 8.4 mg/dL (8.6-10.3); Carbon Dioxide 4 mEq/L (23-29); Chloride 115 mEq/L (98-107); Glucose 416 mg/dL (70-105); Osmolality,Calculated 317 (280-300); Potassium 4.3 mEq/L (3.5-5.1); Sodium 144 mEq/L (136-145); eGFR For African Americans > 60 (> 60); eGFR For Non-African Americans > 60 (> 60)
[2021-07-24] MEDS: 0.45 % Sodium Chloride w/KCl 20 MEQ/1,000 ML MLS IVC SCH (21:42)
[2021-07-25 00:30] LABS: Phosphorous 4.8 mg/dL (2.7-4.5)
[2021-07-25 00:42] LABS: BUN/Creatinine Ratio 14 (6-26); Blood Urea Nitrogen 12 mg/dL (6-20); Calcium 8.3 mg/dL (8.6-10.3); Carbon Dioxide 5 mEq/L (23-29); Chloride 117 mEq/L (98-107); Glucose 212 mg/dL (70-105); Osmolality,Calculated 302 (280-300); Phosphorous 1.7 mg/dL (2.7-4.5); Potassium 4.1 mEq/L (3.5-5.1); Sodium 143 mEq/L (136-145); eGFR For African Americans > 60 (> 60); eGFR For Non-African Americans > 60 (> 60)
[2021-07-25] MEDS: D5% in 0.45% NACL w KCl 20 MEQ/1,000 ML MLS IVC PRN ×5 (00:48→17:07)
[2021-07-25 01:35] LABS: VBG HCO3 6 mEq/L (21-27); VBG PCO2 18 mmHg (41-51); VBG PH 7.16 pH Units (7.32-7.42); VBG PO2 82 mmHg (25-50)
[2021-07-25 03:41] LABS: Hematocrit 36.8 % (35.3-44.9); Mean Corpuscular HGB Conc 31.8 g/dL (31.6-35.5); Mean Corpuscular Hemoglobin 29.9 pg (28.0-33.3); Mean Platelet Volume 8.9 fL (9.4-12.4); Platelet Count 503 K/mcL (140-400); Red Blood Count 3.91 M/mcL (3.82-4.97); Red Cell Distribution Width 13.6 % (11.5-14.5)
[2021-07-25 03:42] LABS: Hemoglobin 11.7 g/dL (11.5-15.4); Mean Corpuscular Volume 94.1 fL (83.0-100.0)
[2021-07-25 04:00] LABS: Magnesium 1.8 mg/dL (1.6-2.6); Phosphorous 1.6 mg/dL (2.7-4.5)
[2021-07-25 04:20] LABS: BUN/Creatinine Ratio 11 (6-26); Blood Urea Nitrogen 10 mg/dL (6-20); Calcium 8.4 mg/dL (8.6-10.3); Carbon Dioxide 9 mEq/L (23-29); Chloride 117 mEq/L (98-107); Glucose 181 mg/dL (70-105); Osmolality,Calculated 300 (280-300); Potassium 3.6 mEq/L (3.5-5.1); Sodium 143 mEq/L (136-145); eGFR For African Americans > 60 (> 60); eGFR For Non-African Americans > 60 (> 60)
[2021-07-25 05:12] LABS: Basophils # 0.4 K/mcL (0.0-0.2); Eosinophils # 0.8 K/mcL (0.0-0.6); Lymphocytes # 2.3 K/mcL (0.6-4.6); Monocytes # 1.1 K/mcL (0.0-1.3); Neutrophils # 14.4 K/mcL (1.6-8.9)
[2021-07-25] MEDS ORDERED: Calcium Gluconate 1gm/50mL 1 GM/50 ML BAG IVPB PRN (05:26)
[2021-07-25] MEDS ORDERED: *HR* Enoxaparin 30 MG/0.3 ML SYRINGE SQ SCH (06:00)
[2021-07-25 08:26] LABS: VBG HCO3 14 mEq/L (21-27); VBG PCO2 32 mmHg (41-51); VBG PH 7.26 pH Units (7.32-7.42); VBG PO2 89 mmHg (25-50)
[2021-07-25 08:33] LABS: VBG PCO2 < 13 mmHg (41-51); VBG PH 6.88 pH Units (7.32-7.42); VBG PO2 116 mmHg (25-50)
[2021-07-25 09:59] LABS: BUN/Creatinine Ratio 14 (6-26); Blood Urea Nitrogen 10 mg/dL (6-20); Calcium 8.1 mg/dL (8.6-10.3); Carbon Dioxide 15 mEq/L (23-29); Chloride 116 mEq/L (98-107); Glucose 203 mg/dL (70-105); Magnesium 2.6 mg/dL (1.6-2.6); Osmolality,Calculated 295 (280-300); Phosphorous 2.5 mg/dL (2.7-4.5); Potassium 4.4 mEq/L (3.5-5.1); Sodium 140 mEq/L (136-145); eGFR For African Americans > 60 (> 60); eGFR For Non-African Americans > 60 (> 60)
[2021-07-25] MEDS ORDERED: Isovue-370 500 ML BOTTLE IVP ONE (12:18)
[2021-07-25 12:37] LABS: BUN/Creatinine Ratio 12 (6-26); Blood Urea Nitrogen 9 mg/dL (6-20); Calcium 8.2 mg/dL (8.6-10.3); Carbon Dioxide 10 mEq/L (23-29); Chloride 116 mEq/L (98-107); Glucose 153 mg/dL (70-105); Magnesium 2.1 mg/dL (1.6-2.6); Osmolality,Calculated 296 (280-300); Potassium 3.2 mEq/L (3.5-5.1); Sodium 142 mEq/L (136-145); eGFR For African Americans > 60 (> 60); eGFR For Non-African Americans > 60 (> 60)
[2021-07-25] MEDS ORDERED: Vancomycin 1,250 MG/262.5 ML IV.SOLN IVPB ONE (13:00)
[2021-07-25] MEDS: 0.9 % Sodium Chloride 1,000 ML IVC SCH ×10 (13:27→20:24)
[2021-07-25] MEDS: Pantoprazole 40 MG VIAL IVP SCH ×2 (13:30→17:27)
[2021-07-25] MEDS: Piperacillin/Tazobactam 3.375 GM in 0.9 % Sodium Chloride Mini Bag 100 ML IVPB SCH ×3 (14:38→23:35)
[2021-07-25] MEDS: 0.45 % Sodium Chloride w/KCl 20 MEQ/1,000 ML MLS IVC SCH ×5 (15:06→21:03)
[2021-07-25 16:04] LABS: VBG Ionized Calcium 1.14 mmol/L (1.15-1.35)
[2021-07-25 16:25] LABS: BUN/Creatinine Ratio 11 (6-26); Blood Urea Nitrogen 6 mg/dL (6-20); Calcium 7.1 mg/dL (8.6-10.3); Carbon Dioxide 13 mEq/L (23-29); Chloride 115 mEq/L (98-107); Glucose 118 mg/dL (70-105); Magnesium 1.8 mg/dL (1.6-2.6); Osmolality,Calculated 283 (280-300); Phosphorous 1.8 mg/dL (2.7-4.5); Potassium 3.6 mEq/L (3.5-5.1); Sodium 137 mEq/L (136-145); eGFR For African Americans > 60 (> 60); eGFR For Non-African Americans > 60 (> 60)
[2021-07-25 16:44] LABS: Albumin 2.9 g/dL (3.5-5.7); Albumin/Globulin Ratio 1.3 (1.1-2.2); Bilirubin,Indirect 0.2 mg/dL (0.0-1.0); Bilirubin,Total 0.2 mg/dL (0.3-1.0); Globulin 2.2 g/dL (2.4-3.5); Total Protein 5.1 g/dL (6.4-8.9)
[2021-07-25] MEDS ORDERED: Morphine Sulfate 2 MG/ML SYRINGE IVP PRN (18:25)
[2021-07-25] MEDS: Potassium Phosphate 44 MEQ in 0.9 % Sodium Chloride 250 ML IVPB PRN (19:56)
[2021-07-25 21:48] LABS: BUN/Creatinine Ratio 7 (6-26); Blood Urea Nitrogen 4 mg/dL (6-20); Calcium 7.3 mg/dL (8.6-10.3); Carbon Dioxide 13 mEq/L (23-29); Chloride 116 mEq/L (98-107); Glucose 160 mg/dL (70-105); Magnesium 1.7 mg/dL (1.6-2.6); Osmolality,Calculated 284 (280-300); Potassium 3.7 mEq/L (3.5-5.1); Sodium 137 mEq/L (136-145); eGFR For African Americans > 60 (> 60); eGFR For Non-African Americans > 60 (> 60)
[2021-07-25] MEDS ORDERED: Piperacillin/Tazobactam 3.375 GM VIAL ONE (22:49)
[2021-07-26] MEDS: Vancomycin 1,250 MG/262.5 ML IV.SOLN IVPB SCH ×2 (00:23→13:45)
[2021-07-26] MEDS: 0.45 % Sodium Chloride w/KCl 20 MEQ/1,000 ML MLS IVC SCH ×5 (02:54→13:47)
[2021-07-26 03:53] LABS: VBG Ionized Calcium 1.17 mmol/L (1.15-1.35)
[2021-07-26 04:08] LABS: BUN/Creatinine Ratio 5 (6-26); Blood Urea Nitrogen 3 mg/dL (6-20); Calcium 7.6 mg/dL (8.6-10.3); Carbon Dioxide 14 mEq/L (23-29); Chloride 114 mEq/L (98-107); Glucose 93 mg/dL (70-105); Magnesium 2.1 mg/dL (1.6-2.6); Osmolality,Calculated 280 (280-300); Phosphorous 2.3 mg/dL (2.7-4.5); Potassium 3.8 mEq/L (3.5-5.1); Sodium 137 mEq/L (136-145); eGFR For African Americans > 60 (> 60); eGFR For Non-African Americans > 60 (> 60)
[2021-07-26] MEDS: Potassium Phosphate 44 MEQ in 0.9 % Sodium Chloride 250 ML IVPB PRN (05:14)
[2021-07-26] MEDS ORDERED: *HR* Enoxaparin 40 MG/0.4 ML SYRINGE SQ SCH (06:00)
[2021-07-26] MEDS: Pantoprazole 40 MG VIAL IVP SCH ×2 (06:07→17:36)
[2021-07-26] MEDS: Piperacillin/Tazobactam 3.375 GM in 0.9 % Sodium Chloride Mini Bag 100 ML IVPB SCH ×2 (07:27→15:52)
[2021-07-26 07:39] LABS: Basophils % 0.3 %; Eosinophils # 0.1 K/mcL (0.0-0.6); Eosinophils % 0.9 %; Hematocrit 30.3 % (35.3-44.9); Immature Granulocytes % 0.9 % (0-4); Lymphocytes % 21.9 %; Mean Corpuscular Hemoglobin 29.8 pg (28.0-33.3); Mean Corpuscular Volume 92.9 fL (83.0-100.0); Mean Platelet Volume 9.1 fL (9.4-12.4); Monocytes # 0.7 K/mcL (0.0-1.3); Monocytes % 7.8 %; Neutrophils # 6.3 K/mcL (1.6-8.9); Platelet Count 373 K/mcL (140-400); Red Blood Count 3.26 M/mcL (3.82-4.97); Red Cell Distribution Width 14.2 % (11.5-14.5); Segmented Neutrophils % 68.2 %
[2021-07-26 07:49] LABS: Hemoglobin 9.7 g/dL (11.5-15.4); White Blood Count 9.2 K/mcL (4.3-11.1)
[2021-07-26 08:12] LABS: VBG Ionized Calcium 1.18 mmol/L (1.15-1.35)
[2021-07-26 08:37] LABS: Alanine Aminotransferase 33 Units/L (7-52); Albumin 2.9 g/dL (3.5-5.7); Albumin/Globulin Ratio 1.5 (1.1-2.2); Alkaline Phosphatase 92 Units/L (34-104); Amylase 452 Units/L (29-103); Aspartate Amino Transferase 23 Units/L (13-39); Bilirubin,Indirect 0.3 mg/dL (0.0-1.0); Bilirubin,Total 0.3 mg/dL (0.3-1.0); Lipase 1797 Units/L (11-82); Total Protein 4.9 g/dL (6.4-8.9)
[2021-07-26 09:29] LABS: Alanine Aminotransferase 29 Units/L (7-52); Albumin 2.7 g/dL (3.5-5.7); Albumin/Globulin Ratio 1.2 (1.1-2.2); Alkaline Phosphatase 87 Units/L (34-104); Amylase 343 Units/L (29-103); Aspartate Amino Transferase 18 Units/L (13-39); BUN/Creatinine Ratio 5 (6-26); Bilirubin,Indirect 0.3 mg/dL (0.0-1.0); Bilirubin,Total 0.3 mg/dL (0.3-1.0); Blood Urea Nitrogen 3 mg/dL (6-20); Calcium 7.4 mg/dL (8.6-10.3); Carbon Dioxide 16 mEq/L (23-29); Chloride 113 mEq/L (98-107); Globulin 2.2 g/dL (2.4-3.5); Glucose 207 mg/dL (70-105); Magnesium 1.9 mg/dL (1.6-2.6); Osmolality,Calculated 285 (280-300); Phosphorous 3.2 mg/dL (2.7-4.5); Sodium 136 mEq/L (136-145); Total Protein 4.9 g/dL (6.4-8.9); eGFR For African Americans > 60 (> 60); eGFR For Non-African Americans > 60 (> 60)
[2021-07-26 09:57] LABS: Lipase 1313 Units/L (11-82)
[2021-07-26 12:39] LABS: BUN/Creatinine Ratio 5 (6-26); Blood Urea Nitrogen 3 mg/dL (6-20); Calcium 7.7 mg/dL (8.6-10.3); Carbon Dioxide 15 mEq/L (23-29); Chloride 113 mEq/L (98-107); Glucose 158 mg/dL (70-105); Osmolality,Calculated 284 (280-300); Potassium 3.6 mEq/L (3.5-5.1); Sodium 137 mEq/L (136-145); eGFR For African Americans > 60 (> 60); eGFR For Non-African Americans > 60 (> 60)
[2021-07-26] MEDS: 0.9 % Sodium Chloride 1,000 ML IVC SCH ×3 (13:36→13:37)
[2021-07-26] MEDS ORDERED: D5% in Water 1,000 ML IVC PRN ×2 (14:21→18:01)
[2021-07-26] MEDS ORDERED: Dextrose 4 GM Chewable Tablets PO PRN ×4 (14:21→18:01)
[2021-07-26] MEDS ORDERED: Ringers Solution, Lactated 1,000 ML IVC SCH (14:30)
[2021-07-26] MEDS ORDERED: Insulin DETEMIR 100 UNIT/ML X5UNITS SUBQ SCH (14:30)
[2021-07-26] MEDS ORDERED: Insulin LISPRO 300 UNITS/3 ML VIAL SUBQ SCH ×3 (16:30→21:00)
[2021-07-26] MEDS ORDERED: *HR* Dextrose 50 % in Water (Syg) 50 ML SYRINGE IVP PRN (18:01)
[2021-07-26] MEDS ORDERED: Morphine Sulfate 2 MG/ML SYRINGE IVP PRN (18:01)
[2021-07-26] MEDS ORDERED: Naloxone 0.4 MG/ML INJ IVP PRN (18:01)
[2021-07-26] MEDS: Ringers Solution, Lactated 1,000 ML IVC SCH ×2 (18:08→22:40)
[2021-07-26] MEDS: Insulin DETEMIR 100 UNIT/ML X5UNITS SUBQ SCH (21:18)
[2021-07-27 04:29] LABS: VBG Ionized Calcium 1.21 mmol/L (1.15-1.35)
[2021-07-27 04:39] LABS: Basophils % 0.5 %; Eosinophils # 0.1 K/mcL (0.0-0.6); Eosinophils % 1.9 %; Hematocrit 30.2 % (35.3-44.9); Hemoglobin 9.9 g/dL (11.5-15.4); Immature Granulocytes % 0.3 % (0-4); Lymphocytes # 2.3 K/mcL (0.6-4.6); Lymphocytes % 36.2 %; Mean Corpuscular HGB Conc 32.8 g/dL (31.6-35.5); Mean Corpuscular Hemoglobin 30.2 pg (28.0-33.3); Mean Corpuscular Volume 92.1 fL (83.0-100.0); Mean Platelet Volume 9.3 fL (9.4-12.4); Monocytes # 0.6 K/mcL (0.0-1.3); Monocytes % 9.1 %; Neutrophils # 3.3 K/mcL (1.6-8.9); Platelet Count 356 K/mcL (140-400); Red Blood Count 3.28 M/mcL (3.82-4.97); Red Cell Distribution Width 13.9 % (11.5-14.5); White Blood Count 6.3 K/mcL (4.3-11.1)
[2021-07-27 04:53] LABS: Magnesium 1.7 mg/dL (1.6-2.6); Phosphorous 2.7 mg/dL (2.7-4.5)
[2021-07-27] MEDS ORDERED: *HR* Enoxaparin 40 MG/0.4 ML SYRINGE SQ SCH (06:00)
[2021-07-27] MEDS ORDERED: Pantoprazole 40 MG VIAL IVP SCH (06:00)
[2021-07-27] MEDS: Ringers Solution, Lactated 1,000 ML IVC SCH (06:50)
[2021-07-27] MEDS: Insulin LISPRO 300 UNITS/3 ML VIAL SUBQ SCH ×2 (08:39→12:02)
[2021-07-27] MEDS: Insulin DETEMIR 100 UNIT/ML X5UNITS SUBQ SCH (09:03)
[2021-07-27 10:46] VITALS: O2SAT 100
[2021-07-27 11:16] LABS: BUN/Creatinine Ratio 4 (6-26); Blood Urea Nitrogen 2 mg/dL (6-20); Calcium 8.2 mg/dL (8.6-10.3); Carbon Dioxide 20 mEq/L (23-29); Chloride 109 mEq/L (98-107); Glucose 119 mg/dL (70-105); Osmolality,Calculated 279 (280-300); Potassium 3.9 mEq/L (3.5-5.1); Sodium 136 mEq/L (136-145); eGFR For African Americans > 60 (> 60); eGFR For Non-African Americans > 60 (> 60)
[2021-07-27 15:03] VITALS: BP 103/65; PULSE 86; TEMP 98.3
== END 2021-07-27 18:26 | disposition home or self-care (01) | DRG 420 ==
LOC: ICNU 14:17 → EMEROOARM 14:17 → ICNU 19:03 → SUATTDRO 20:02 → 3BNU 07-26 18:53
PROVIDERS: ADMIT Internal Medicine; ATTEND Student in an Organized Health Care Education/Training Program

== ENCOUNTER 2021-08-11 11:10 | Inpatient (IN) ==
[2021-08-11] MEDS ORDERED: Ondansetron 4 MG/2 ML VIAL IVP ONE (11:22)
[2021-08-11] MEDS ORDERED: *HR* FentaNYL (PF) 100 MCG/2 ML VIAL IVP ONE (11:22)
[2021-08-11 11:41] LABS: Mean Platelet Volume 9.8 fL (9.4-12.4); Nucleated Red Blood Cells 0.1 /100 WBC (0); Red Cell Distribution Width 12.7 % (11.5-14.5)
[2021-08-11] MEDS: 0.9 % Sodium Chloride 1,000 ML IVC SCH ×3 (11:42→19:51)
[2021-08-11 11:43] LABS: Basophils # 0.3 K/mcL (0.0-0.2); Hematocrit 49.2 % (35.3-44.9); Hemoglobin 14.6 g/dL (11.5-15.4); Mean Corpuscular HGB Conc 29.7 g/dL (31.6-35.5); Mean Corpuscular Hemoglobin 30.2 pg (28.0-33.3); Mean Corpuscular Volume 101.7 fL (83.0-100.0); Platelet Count 654 K/mcL (140-400); Red Blood Count 4.84 M/mcL (3.82-4.97); White Blood Count 26.6 K/mcL (4.3-11.1)
[2021-08-11 11:57] LABS: VBG HCO3 3 mEq/L (21-27); VBG PCO2 23 mmHg (41-51); VBG PH 6.75 pH Units (7.32-7.42); VBG PO2 101 mmHg (25-50)
[2021-08-11 11:59] LABS: Bilirubin,Urine Negative (Negative); Blood,Urine Negative (Negative); Clarity,Urine Clear (Clear); Color,Urine Colorless (Yellow); Glucose,Urine (UA) >=1000 mg/dL (Normal); Ketones,Urine >150 mg/dL (Negative); Leukocyte Esterase,Urine Negative (Negative); Mucus,Urine Few per lpf (None-Few); Nitrite,Urine Negative (Negative); PH,Urine 5.5 pH Units (5.0-8.0); Protein,Urine 30 mg/dL (Neg-Trace); RBC,Urine 0-3 per hpf (0-3); Specific Gravity,Urine 1.023 (1.010-1.025); Squamous Epithelial Cell,Urine Few per hpf (None-Few); Urobilinogen,Urine Normal (Normal); WBC,Urine 0-3 per hpf (0-3)
[2021-08-11 12:06] LABS: Monocytes # 0.5 K/mcL (0.0-1.3); Neutrophils # 17.8 K/mcL (1.6-8.9)
[2021-08-11 12:45] LABS: BUN/Creatinine Ratio 19 (6-26); Blood Urea Nitrogen 22 mg/dL (6-20); Calcium 9.6 mg/dL (8.6-10.3); Chloride 95 mEq/L (98-107); Potassium 4.8 mEq/L (3.5-5.1); Sodium 132 mEq/L (136-145); eGFR For African Americans > 60 (> 60); eGFR For Non-African Americans > 60 (> 60)
[2021-08-11 12:46] LABS: Alanine Aminotransferase 20 Units/L (7-52); Albumin 4.8 g/dL (3.5-5.7); Albumin/Globulin Ratio 1.3 (1.1-2.2); Alkaline Phosphatase 173 Units/L (34-104); Amylase 69 Units/L (29-103); Aspartate Amino Transferase 33 Units/L (13-39); Bilirubin,Indirect 0.3 mg/dL (0.0-1.0); Bilirubin,Total 0.3 mg/dL (0.3-1.0); Globulin 3.6 g/dL (2.4-3.5); Glucose 783 mg/dL (70-105); Lipase 58 Units/L (11-82); Osmolality,Calculated 315 (280-300); Total Protein 8.4 g/dL (6.4-8.9)
[2021-08-11] MEDS ORDERED: *HR* Dextrose 50 % in Water (Syg) 50 ML SYRINGE IVP PRN (13:12)
[2021-08-11] MEDS ORDERED: Insulin Regular, Human 100 UNIT/ML IV PRN (13:12)
[2021-08-11] MEDS ORDERED: Naloxone 0.4 MG/ML INJ IVP PRN (13:12)
[2021-08-11] MEDS ORDERED: Acetaminophen 325 MG TABLET PO PRN (13:12)
[2021-08-11] MEDS ORDERED: Ondansetron 4 MG/2 ML VIAL IVP PRN (13:31)
[2021-08-11] MEDS: 0.9 % Sodium Chloride w KCl 20 MEQ/1,000 ML MLS IVC SCH ×6 (14:20→23:57)
[2021-08-11 14:59] LABS: BUN/Creatinine Ratio 23 (6-26); Blood Urea Nitrogen 22 mg/dL (6-20); Calcium 8.3 mg/dL (8.6-10.3); Carbon Dioxide 4 mEq/L (23-29); Chloride 104 mEq/L (98-107); Glucose 757 mg/dL (70-105); Magnesium 2.3 mg/dL (1.6-2.6); Osmolality,Calculated 322 (280-300); Phosphorous 6.5 mg/dL (2.7-4.5); Sodium 136 mEq/L (136-145); eGFR For African Americans > 60 (> 60); eGFR For Non-African Americans > 60 (> 60)
[2021-08-11] MEDS: cefTRIAXone 2,000 MG in 0.9 % Sodium Chloride 20 ML IVP SCH (15:50)
[2021-08-11] MEDS: Azithromycin 500 MG in 0.9 % Sodium Chloride 250 ML IVPB SCH (15:50)
[2021-08-11 17:09] LABS: VBG HCO3 4 mEq/L (21-27); VBG PCO2 23 mmHg (41-51); VBG PH 6.81 pH Units (7.32-7.42); VBG PO2 115 mmHg (25-50)
[2021-08-11 17:24] LABS: BUN/Creatinine Ratio 23 (6-26); Blood Urea Nitrogen 20 mg/dL (6-20); Calcium 7.4 mg/dL (8.6-10.3); Carbon Dioxide 4 mEq/L (23-29); Chloride 114 mEq/L (98-107); Glucose 442 mg/dL (70-105); Magnesium 1.9 mg/dL (1.6-2.6); Osmolality,Calculated 314 (280-300); Phosphorous 4.6 mg/dL (2.7-4.5); Potassium 4.7 mEq/L (3.5-5.1); Sodium 141 mEq/L (136-145); eGFR For African Americans > 60 (> 60); eGFR For Non-African Americans > 60 (> 60)
[2021-08-11 17:44] LABS: Carbon Dioxide 5 mEq/L (23-29)
[2021-08-11] MEDS: Pantoprazole 40 MG VIAL IVP SCH (18:35)
[2021-08-11] MEDS: *HR* Heparin 5,000 UNIT/ML VIAL SQ SCH (18:35)
[2021-08-11 19:39] LABS: Amphetamine Screen,Urine Negative ng/mL (Cutoff=1000); Barbiturate Screen,Urine Negative ng/mL (Cutoff=200); Benzodiazepines Screen,Urine Negative ng/mL (Cutoff=200); Cannabinoid Screen,Urine Negative ng/mL (Cutoff = 50); Cocaine Screen,Urine Negative ng/mL (Cutoff= 300); Opiate Screen,Urine Negative ng/mL (Cutoff=300); Phencyclidine Screen,Urine Negative ng/mL (Cutoff=25)
[2021-08-11 23:20] LABS: BUN/Creatinine Ratio 18 (6-26); Blood Urea Nitrogen 13 mg/dL (6-20); Calcium 7.3 mg/dL (8.6-10.3); Carbon Dioxide 4 mEq/L (23-29); Chloride 115 mEq/L (98-107); Glucose 200 mg/dL (70-105); Magnesium 1.5 mg/dL (1.6-2.6); Osmolality,Calculated 292 (280-300); Phosphorous 1.8 mg/dL (2.7-4.5); Potassium 4.5 mEq/L (3.5-5.1); Sodium 138 mEq/L (136-145); eGFR For African Americans > 60 (> 60); eGFR For Non-African Americans > 60 (> 60)
[2021-08-11] MEDS: D5% in 0.45% NACL w KCl 20 MEQ/1,000 ML MLS IVC PRN (23:42)
[2021-08-12 02:51] LABS: Alanine Aminotransferase 13 Units/L (7-52); Albumin 3.4 g/dL (3.5-5.7); Albumin/Globulin Ratio 1.5 (1.1-2.2); Alkaline Phosphatase 96 Units/L (34-104); Aspartate Amino Transferase 25 Units/L (13-39); BUN/Creatinine Ratio 14 (6-26); Bilirubin,Indirect 0.2 mg/dL (0.0-1.0); Bilirubin,Total 0.2 mg/dL (0.3-1.0); Blood Urea Nitrogen 10 mg/dL (6-20); Calcium 7.5 mg/dL (8.6-10.3); Carbon Dioxide 8 mEq/L (23-29); Chloride 115 mEq/L (98-107); Globulin 2.3 g/dL (2.4-3.5); Glucose 171 mg/dL (70-105); Magnesium 1.9 mg/dL (1.6-2.6); Osmolality,Calculated 287 (280-300); Phosphorous 1.4 mg/dL (2.7-4.5); Potassium 3.6 mEq/L (3.5-5.1); Sodium 137 mEq/L (136-145); Total Protein 5.7 g/dL (6.4-8.9); eGFR For African Americans > 60 (> 60); eGFR For Non-African Americans > 60 (> 60)
[2021-08-12 02:57] LABS: Thyroid Stimulating Hormone 0.076 mcIU/mL (0.340-5.600)
[2021-08-12 03:02] LABS: Basophils # 0.1 K/mcL (0.0-0.2); Basophils % 0.5 %; Hematocrit 35.1 % (35.3-44.9); Immature Granulocytes % 2.8 % (0-4); Lymphocytes % 12.5 %; Mean Corpuscular HGB Conc 32.5 g/dL (31.6-35.5); Mean Corpuscular Hemoglobin 29.6 pg (28.0-33.3); Mean Platelet Volume 9.2 fL (9.4-12.4); Monocytes # 1.1 K/mcL (0.0-1.3); Monocytes % 6.7 %; Neutrophils # 12.5 K/mcL (1.6-8.9); Platelet Count 353 K/mcL (140-400); Red Blood Count 3.85 M/mcL (3.82-4.97); Segmented Neutrophils % 77.5 %; White Blood Count 16.1 K/mcL (4.3-11.1)
[2021-08-12 03:11] LABS: Hemoglobin 11.4 g/dL (11.5-15.4); Mean Corpuscular Volume 91.2 fL (83.0-100.0)
[2021-08-12] MEDS: D5% in 0.45% NACL w KCl 20 MEQ/1,000 ML MLS IVC PRN (03:39)
[2021-08-12] MEDS: 0.9 % Sodium Chloride w KCl 20 MEQ/1,000 ML MLS IVC SCH ×4 (03:39→07:50)
[2021-08-12] MEDS: *HR* Heparin 5,000 UNIT/ML VIAL SQ SCH ×2 (05:35→18:16)
[2021-08-12] MEDS: Pantoprazole 40 MG VIAL IVP SCH ×2 (05:35→18:15)
[2021-08-12 05:37] LABS: VBG HCO3 11 mEq/L (21-27); VBG PCO2 25 mmHg (41-51); VBG PH 7.25 pH Units (7.32-7.42); VBG PO2 156 mmHg (25-50)
[2021-08-12 05:58] LABS: Basophils # 0.1 K/mcL (0.0-0.2); Basophils % 0.3 %; Hemoglobin 11.4 g/dL (11.5-15.4); Immature Granulocytes % 1.8 % (0-4); Lymphocytes # 1.5 K/mcL (0.6-4.6); Lymphocytes % 10.2 %; Mean Corpuscular HGB Conc 33.5 g/dL (31.6-35.5); Mean Corpuscular Hemoglobin 30.2 pg (28.0-33.3); Mean Corpuscular Volume 89.9 fL (83.0-100.0); Mean Platelet Volume 9.3 fL (9.4-12.4); Monocytes # 1.4 K/mcL (0.0-1.3); Monocytes % 9.4 %; Neutrophils # 11.6 K/mcL (1.6-8.9); Platelet Count 369 K/mcL (140-400); Red Blood Count 3.78 M/mcL (3.82-4.97); Red Cell Distribution Width 12.9 % (11.5-14.5); Segmented Neutrophils % 78.3 %; White Blood Count 14.8 K/mcL (4.3-11.1)
[2021-08-12 06:13] LABS: BUN/Creatinine Ratio 11 (6-26); Blood Urea Nitrogen 8 mg/dL (6-20); Calcium 7.6 mg/dL (8.6-10.3); Carbon Dioxide 12 mEq/L (23-29); Chloride 115 mEq/L (98-107); Glucose 113 mg/dL (70-105); Magnesium 1.6 mg/dL (1.6-2.6); Osmolality,Calculated 285 (280-300); Phosphorous 1.5 mg/dL (2.7-4.5); Potassium 3.1 mEq/L (3.5-5.1); Sodium 138 mEq/L (136-145); eGFR For African Americans > 60 (> 60); eGFR For Non-African Americans > 60 (> 60)
[2021-08-12] MEDS ORDERED: Potassium Phosphate 44 MEQ in 0.9 % Sodium Chloride 250 ML IVPB ONE (06:24)
[2021-08-12] MEDS: cefTRIAXone 2,000 MG in 0.9 % Sodium Chloride 20 ML IVP SCH (07:51)
[2021-08-12 10:52] LABS: BUN/Creatinine Ratio 10 (6-26); Blood Urea Nitrogen 7 mg/dL (6-20); Calcium 7.6 mg/dL (8.6-10.3); Carbon Dioxide 7 mEq/L (23-29); Chloride 111 mEq/L (98-107); Glucose 281 mg/dL (70-105); Magnesium 1.7 mg/dL (1.6-2.6); Osmolality,Calculated 288 (280-300); Phosphorous 3.1 mg/dL (2.7-4.5); Potassium 4.3 mEq/L (3.5-5.1); Sodium 135 mEq/L (136-145); eGFR For African Americans > 60 (> 60); eGFR For Non-African Americans > 60 (> 60)
[2021-08-12] MEDS ORDERED: Ringers Solution, Lactated 1,000 ML IVC ONE (12:08)
[2021-08-12] MEDS ORDERED: D5% in Lactated Ringers 1,000 ML IVC SCH (12:15)
[2021-08-12] MEDS ORDERED: Potassium Chloride 20 MEQ in D5% in Lactated Ringers 1,000 ML IVC SCH (12:45)
[2021-08-12 15:13] LABS: BUN/Creatinine Ratio 8 (6-26); Blood Urea Nitrogen 5 mg/dL (6-20); Carbon Dioxide 11 mEq/L (23-29); Chloride 113 mEq/L (98-107); Glucose 95 mg/dL (70-105); Magnesium 2.3 mg/dL (1.6-2.6); Osmolality,Calculated 275 (280-300); Phosphorous 1.9 mg/dL (2.7-4.5); Potassium 4.9 mEq/L (3.5-5.1); Sodium 134 mEq/L (136-145); eGFR For African Americans > 60 (> 60); eGFR For Non-African Americans > 60 (> 60)
[2021-08-12] MEDS: Azithromycin 500 MG in 0.9 % Sodium Chloride 250 ML IVPB SCH (16:10)
[2021-08-12 19:02] LABS: BUN/Creatinine Ratio 7 (6-26); Blood Urea Nitrogen 4 mg/dL (6-20); Calcium 7.9 mg/dL (8.6-10.3); Carbon Dioxide 12 mEq/L (23-29); Chloride 111 mEq/L (98-107); Glucose 165 mg/dL (70-105); Osmolality,Calculated 279 (280-300); Phosphorous 2.2 mg/dL (2.7-4.5); Potassium 4.4 mEq/L (3.5-5.1); Sodium 134 mEq/L (136-145); eGFR For African Americans > 60 (> 60); eGFR For Non-African Americans > 60 (> 60)
[2021-08-12] MEDS: Potassium Chloride 20 MEQ in D5% in Lactated Ringers 1,000 ML IVC SCH ×2 (19:13→20:17)
[2021-08-12] MEDS ORDERED: Insulin Regular, Human 100 UNIT/ML IV PRN (19:52)
[2021-08-12] MEDS ORDERED: Naloxone 0.4 MG/ML INJ IVP PRN (19:52)
[2021-08-12] MEDS ORDERED: *HR* Dextrose 50 % in Water (Syg) 50 ML SYRINGE IVP PRN (19:52)
[2021-08-12] MEDS ORDERED: Ondansetron 4 MG/2 ML VIAL IVP PRN (19:52)
[2021-08-12] MEDS ORDERED: Acetaminophen 325 MG TABLET PO PRN (19:52)
[2021-08-12 21:35] LABS: VBG Ionized Calcium 1.19 mmol/L (1.15-1.35)
[2021-08-12 21:51] LABS: BUN/Creatinine Ratio 5 (6-26); Blood Urea Nitrogen 3 mg/dL (6-20); Calcium 7.8 mg/dL (8.6-10.3); Carbon Dioxide 14 mEq/L (23-29); Chloride 113 mEq/L (98-107); Glucose 179 mg/dL (70-105); Magnesium 1.7 mg/dL (1.6-2.6); Osmolality,Calculated 273 (280-300); Phosphorous 2.1 mg/dL (2.7-4.5); Potassium 3.7 mEq/L (3.5-5.1); Sodium 131 mEq/L (136-145); eGFR For African Americans > 60 (> 60); eGFR For Non-African Americans > 60 (> 60)
[2021-08-13] MEDS: Potassium Chloride 20 MEQ in D5% in Lactated Ringers 1,000 ML IVC SCH ×2 (01:43→07:43)
[2021-08-13 02:39] LABS: Basophils % 0.2 %; Eosinophils # 0.1 K/mcL (0.0-0.6); Eosinophils % 0.6 %; Hematocrit 31.8 % (35.3-44.9); Hemoglobin 10.6 g/dL (11.5-15.4); Immature Granulocytes % 0.7 % (0-4); Lymphocytes # 2.3 K/mcL (0.6-4.6); Lymphocytes % 27.4 %; Mean Corpuscular HGB Conc 33.3 g/dL (31.6-35.5); Mean Corpuscular Hemoglobin 29.5 pg (28.0-33.3); Mean Corpuscular Volume 88.6 fL (83.0-100.0); Mean Platelet Volume 9.3 fL (9.4-12.4); Monocytes # 0.6 K/mcL (0.0-1.3); Monocytes % 7.2 %; Neutrophils # 5.3 K/mcL (1.6-8.9); Platelet Count 334 K/mcL (140-400); Red Blood Count 3.59 M/mcL (3.82-4.97); Red Cell Distribution Width 13.4 % (11.5-14.5); Segmented Neutrophils % 63.9 %; White Blood Count 8.3 K/mcL (4.3-11.1)
[2021-08-13 03:07] LABS: Alanine Aminotransferase 10 Units/L (7-52); Albumin 3.1 g/dL (3.5-5.7); Albumin/Globulin Ratio 1.5 (1.1-2.2); Alkaline Phosphatase 85 Units/L (34-104); Aspartate Amino Transferase 13 Units/L (13-39); BUN/Creatinine Ratio 6 (6-26); Bilirubin,Indirect 0.3 mg/dL (0.0-1.0); Bilirubin,Total 0.3 mg/dL (0.3-1.0); Blood Urea Nitrogen 3 mg/dL (6-20); Calcium 7.9 mg/dL (8.6-10.3); Carbon Dioxide 15 mEq/L (23-29); Chloride 110 mEq/L (98-107); Globulin 2.1 g/dL (2.4-3.5); Glucose 150 mg/dL (70-105); Magnesium 1.7 mg/dL (1.6-2.6); Osmolality,Calculated 283 (280-300); Phosphorous 2.8 mg/dL (2.7-4.5); Potassium 3.8 mEq/L (3.5-5.1); Sodium 137 mEq/L (136-145); Total Protein 5.2 g/dL (6.4-8.9); eGFR For African Americans > 60 (> 60); eGFR For Non-African Americans > 60 (> 60)
[2021-08-13] MEDS ORDERED: Pantoprazole 40 MG VIAL IVP SCH (06:00)
[2021-08-13] MEDS ORDERED: *HR* Heparin 5,000 UNIT/ML VIAL SQ SCH (06:00)
[2021-08-13] MEDS ORDERED: Insulin DETEMIR 100 UNIT/ML X5UNITS SUBQ ONE (07:30)
[2021-08-13] MEDS ORDERED: Insulin DETEMIR 100 UNIT/ML X5UNITS SUBQ SCH (07:45)
[2021-08-13] MEDS ORDERED: cefTRIAXone 2,000 MG in 0.9 % Sodium Chloride 20 ML IVP SCH (09:00)
[2021-08-13 11:16] VITALS: BP 101/52; PULSE 103; TEMP 98.3; O2SAT 99
[2021-08-13 11:30] LABS: BUN/Creatinine Ratio 3 (6-26); Blood Urea Nitrogen 2 mg/dL (6-20); Carbon Dioxide 15 mEq/L (23-29); Chloride 110 mEq/L (98-107); Glucose 242 mg/dL (70-105); Osmolality,Calculated 282 (280-300); Potassium 4.2 mEq/L (3.5-5.1); Sodium 134 mEq/L (136-145); eGFR For African Americans > 60 (> 60); eGFR For Non-African Americans > 60 (> 60)
[2021-08-13] MEDS ORDERED: Azithromycin 500 MG in 0.9 % Sodium Chloride 250 ML IVPB SCH (14:00)
== END 2021-08-13 14:40 | disposition home or self-care (01) | DRG 420 ==
LOC: EMEROOARM 11:10 → ICNU 11:10 → 2NNU 08-13 00:20
PROVIDERS: ADMIT Pediatrics; ATTEND Pediatrics

== ENCOUNTER 2021-10-02 16:00 | Inpatient (IN) ==
[2021-10-02 17:41] LABS: Basophils # 0.1 K/mcL (0.0-0.2); Basophils % 0.7 %; Eosinophils # 0.1 K/mcL (0.0-0.6); Eosinophils % 0.3 %; Hematocrit 50.1 % (35.3-44.9); Hemoglobin 15.5 g/dL (11.5-15.4); Immature Granulocytes % 1.1 % (0-4); Lymphocytes # 2.8 K/mcL (0.6-4.6); Lymphocytes % 17.4 %; Mean Corpuscular HGB Conc 30.9 g/dL (31.6-35.5); Mean Corpuscular Hemoglobin 29.9 pg (28.0-33.3); Mean Corpuscular Volume 96.7 fL (83.0-100.0); Mean Platelet Volume 9.6 fL (9.4-12.4); Monocytes # 0.5 K/mcL (0.0-1.3); Monocytes % 3.2 %; Neutrophils # 12.7 K/mcL (1.6-8.9); Platelet Count 662 K/mcL (140-400); Red Blood Count 5.18 M/mcL (3.82-4.97); Red Cell Distribution Width 13.1 % (11.5-14.5); Segmented Neutrophils % 77.3 %; White Blood Count 16.4 K/mcL (4.3-11.1)
[2021-10-02 17:51] LABS: VBG HCO3 4 mEq/L (21-27); VBG PCO2 15 mmHg (41-51); VBG PH 7.07 pH Units (7.32-7.42); VBG PO2 171 mmHg (25-50)
[2021-10-02] MEDS: 0.9 % Sodium Chloride 1,000 ML IVC SCH ×2 (17:53→21:24)
[2021-10-02 18:06] LABS: Alanine Aminotransferase 14 Units/L (7-52); Albumin 4.6 g/dL (3.5-5.7); Albumin/Globulin Ratio 1.3 (1.1-2.2); Alkaline Phosphatase 123 Units/L (34-104); Aspartate Amino Transferase 15 Units/L (13-39); BUN/Creatinine Ratio 15 (6-26); Bilirubin,Total 0.3 mg/dL (0.3-1.0); Blood Urea Nitrogen 17 mg/dL (6-20); Carbon Dioxide < 4 mEq/L (23-29); Chloride 98 mEq/L (98-107); Globulin 3.6 g/dL (2.4-3.5); Glucose 733 mg/dL (70-105); Magnesium 2.3 mg/dL (1.6-2.6); Osmolality,Calculated 311 (280-300); Potassium 4.6 mEq/L (3.5-5.1); Sodium 132 mEq/L (136-145); Total Protein 8.2 g/dL (6.4-8.9); eGFR For African Americans > 60 (> 60); eGFR For Non-African Americans > 60 (> 60)
[2021-10-02] MEDS ORDERED: Naloxone 0.4 MG/ML INJ IVP PRN (19:29)
[2021-10-02] MEDS ORDERED: Melatonin 3 MG TABLET PO PRN (19:29)
[2021-10-02] MEDS ORDERED: Acetaminophen 325 MG TABLET PO PRN (19:29)
[2021-10-02] MEDS ORDERED: Ondansetron 4 MG/2 ML VIAL IVP PRN (19:29)
[2021-10-02] MEDS ORDERED: *HR* HYDROcodone/Acet 5/325 mg TABLET PO PRN (19:29)
[2021-10-02] MEDS ORDERED: *HR* Promethazine 25 MG/ML VIAL IM PRN (19:29)
[2021-10-02] MEDS ORDERED: D5% in 0.45% NACL w KCl 20 MEQ/1,000 ML MLS IVC PRN (19:32)
[2021-10-02] MEDS ORDERED: Insulin Regular, Human 100 UNIT/ML IV PRN (19:32)
[2021-10-02] MEDS ORDERED: *HR* Dextrose 50 % in Water (Syg) 50 ML SYRINGE IVP PRN (19:32)
[2021-10-02] MEDS ORDERED: D5% in 0.45% NACL 1,000 ML IVC PRN (19:32)
[2021-10-02 20:03] LABS: Bilirubin,Urine Negative (Negative); Blood,Urine Negative (Negative); Clarity,Urine Clear (Clear); Color,Urine Colorless (Yellow); Glucose,Urine (UA) >=1000 mg/dL (Normal); Ketones,Urine >150 mg/dL (Negative); Leukocyte Esterase,Urine Negative (Negative); Mucus,Urine Few per lpf (None-Few); Nitrite,Urine Negative (Negative); PH,Urine 5.5 pH Units (5.0-8.0); Protein,Urine 30 mg/dL (Neg-Trace); RBC,Urine 0-3 per hpf (0-3); Specific Gravity,Urine 1.024 (1.010-1.025); Squamous Epithelial Cell,Urine Few per hpf (None-Few); Urobilinogen,Urine Normal (Normal); WBC,Urine 0-3 per hpf (0-3)
[2021-10-02 20:09] LABS: Amphetamine Screen,Urine Negative ng/mL (Cutoff=1000); Barbiturate Screen,Urine Negative ng/mL (Cutoff=200); Benzodiazepines Screen,Urine Negative ng/mL (Cutoff=200); Cannabinoid Screen,Urine Negative ng/mL (Cutoff = 50); Cocaine Screen,Urine Negative ng/mL (Cutoff= 300); Opiate Screen,Urine Negative ng/mL (Cutoff=300); Phencyclidine Screen,Urine Negative ng/mL (Cutoff=25)
[2021-10-02 22:09] LABS: Estimated Average Glucose 332 mg/dl; Hemoglobin A1C 13.2 %
[2021-10-02 22:39] LABS: BUN/Creatinine Ratio 18 (6-26); Blood Urea Nitrogen 20 mg/dL (6-20); Calcium 7.9 mg/dL (8.6-10.3); Chloride 107 mEq/L (98-107); Glucose 746 mg/dL (70-105); Osmolality,Calculated 323 (280-300); Potassium 5.5 mEq/L (3.5-5.1); Sodium 137 mEq/L (136-145); eGFR For African Americans > 60 (> 60); eGFR For Non-African Americans > 60 (> 60)
[2021-10-02 23:55] LABS: Carbon Dioxide < 4 mEq/L (23-29)
[2021-10-03] MEDS ORDERED: *HR* LORazepam 2 MG/ML VIAL IVP ONE (01:47)
[2021-10-03 04:27] LABS: VBG HCO3 5 mEq/L (21-27); VBG PCO2 16 mmHg (41-51); VBG PH 7.08 pH Units (7.32-7.42); VBG PO2 230 mmHg (25-50)
[2021-10-03 05:51] LABS: Basophils # 0.1 K/mcL (0.0-0.2); Basophils % 0.4 %; Eosinophils # 6.2 K/mcL (0.0-0.6); Eosinophils % 25.8 %; Hematocrit 45.6 % (35.3-44.9); Immature Granulocytes % 1.5 % (0-4); Lymphocytes # 4.3 K/mcL (0.6-4.6); Lymphocytes % 17.9 %; Mean Corpuscular HGB Conc 32.9 g/dL (31.6-35.5); Mean Corpuscular Hemoglobin 29.2 pg (28.0-33.3); Mean Corpuscular Volume 88.9 fL (83.0-100.0); Mean Platelet Volume 9.2 fL (9.4-12.4); Monocytes # 1.6 K/mcL (0.0-1.3); Monocytes % 6.5 %; Neutrophils # 11.5 K/mcL (1.6-8.9); Platelet Count 570 K/mcL (140-400); Red Blood Count 5.13 M/mcL (3.82-4.97); Red Cell Distribution Width 12.9 % (11.5-14.5); Segmented Neutrophils % 47.9 %; White Blood Count 24.1 K/mcL (4.3-11.1)
[2021-10-03 06:08] LABS: INR 0.9; Prothrombin Time 9.8 Seconds (9.4-12.1)
[2021-10-03 06:12] LABS: BUN/Creatinine Ratio 18 (6-26); Blood Urea Nitrogen 18 mg/dL (6-20); Calcium 8.6 mg/dL (8.6-10.3); Carbon Dioxide 6 mEq/L (23-29); Chloride 123 mEq/L (98-107); Glucose 135 mg/dL (70-105); Osmolality,Calculated 312 (280-300); Potassium 3.5 mEq/L (3.5-5.1); Sodium 149 mEq/L (136-145); eGFR For African Americans > 60 (> 60); eGFR For Non-African Americans > 60 (> 60)
[2021-10-03] MEDS: *HR* Enoxaparin 40 MG/0.4 ML SYRINGE SQ SCH (07:01)
[2021-10-03] MEDS ORDERED: [UNRECOGNIZED DRUG - OTHER] IVC SCH (09:00)
[2021-10-03] MEDS ORDERED: D5 IVC SCH (09:00)
[2021-10-03] MEDS ORDERED: SODIUM BICARBONATE IVC SCH (09:00)
[2021-10-03] MEDS ORDERED: POTASSIUM CHLORIDE IVC SCH (09:00)
[2021-10-03] MEDS ORDERED: Iopamidol - 370 500 ML MLS IVP ONE (09:00)
[2021-10-03 09:13] LABS: Magnesium 2.2 mg/dL (1.6-2.6); Phosphorous < 1.0 mg/dL (2.7-4.5)
[2021-10-03] MEDS ORDERED: Potassium Phosphate 44 MEQ in 0.9 % Sodium Chloride 250 ML IVPB ONE (09:37)
[2021-10-03] MEDS: 0.45 % Sodium Chloride w/KCl 20 MEQ/1,000 ML MLS IVC SCH ×2 (09:51→09:52)
[2021-10-03] MEDS: 0.9 % Sodium Chloride 1,000 ML IVC SCH (09:52)
[2021-10-03] MEDS: D5 IVC SCH ×2 (09:56→17:58)
[2021-10-03] MEDS: POTASSIUM CHLORIDE IVC SCH ×2 (09:56→17:58)
[2021-10-03] MEDS: WATER IVC SCH ×2 (09:56→17:58)
[2021-10-03] MEDS: SODIUM BICARBONATE IVC SCH ×2 (09:56→17:58)
[2021-10-03 12:11] LABS: VBG HCO3 15 mEq/L (21-27); VBG PCO2 28 mmHg (41-51); VBG PH 7.33 pH Units (7.32-7.42); VBG PO2 105 mmHg (25-50)
[2021-10-03 12:46] LABS: BUN/Creatinine Ratio 18 (6-26); Blood Urea Nitrogen 16 mg/dL (6-20); Calcium 8.2 mg/dL (8.6-10.3); Carbon Dioxide 16 mEq/L (23-29); Chloride 113 mEq/L (98-107); Glucose 140 mg/dL (70-105); Osmolality,Calculated 293 (280-300); Potassium 3.5 mEq/L (3.5-5.1); Sodium 140 mEq/L (136-145); eGFR For African Americans > 60 (> 60); eGFR For Non-African Americans > 60 (> 60)
[2021-10-03 13:40] LABS: VBG PCO2 < 13 mmHg (41-51); VBG PH 6.82 pH Units (7.32-7.42); VBG PO2 243 mmHg (25-50)
[2021-10-03 13:41] LABS: VBG PCO2 < 13 mmHg (41-51); VBG PH 7.31 pH Units (7.32-7.42); VBG PO2 231 mmHg (25-50)
[2021-10-03 17:11] LABS: VBG HCO3 19 mEq/L (21-27); VBG PCO2 34 mmHg (41-51); VBG PH 7.35 pH Units (7.32-7.42); VBG PO2 141 mmHg (25-50)
[2021-10-03 17:21] LABS: BUN/Creatinine Ratio 16 (6-26); Blood Urea Nitrogen 13 mg/dL (6-20); Calcium 7.9 mg/dL (8.6-10.3); Carbon Dioxide 19 mEq/L (23-29); Chloride 115 mEq/L (98-107); Glucose 85 mg/dL (70-105); Osmolality,Calculated 293 (280-300); Phosphorous 1.1 mg/dL (2.7-4.5); Potassium 3.4 mEq/L (3.5-5.1); Sodium 142 mEq/L (136-145); eGFR For African Americans > 60 (> 60); eGFR For Non-African Americans > 60 (> 60)
[2021-10-03] MEDS: Insulin DETEMIR 100 UNIT/ML X5UNITS SUBQ SCH (21:03)
[2021-10-04 00:50] LABS: VBG HCO3 19 mEq/L (21-27); VBG PCO2 32 mmHg (41-51); VBG PH 7.38 pH Units (7.32-7.42); VBG PO2 173 mmHg (25-50)
[2021-10-04 01:11] LABS: BUN/Creatinine Ratio 17 (6-26); Blood Urea Nitrogen 14 mg/dL (6-20); Calcium 7.9 mg/dL (8.6-10.3); Carbon Dioxide 19 mEq/L (23-29); Chloride 103 mEq/L (98-107); Glucose 488 mg/dL (70-105); Osmolality,Calculated 292 (280-300); Potassium 3.5 mEq/L (3.5-5.1); Sodium 130 mEq/L (136-145); eGFR For African Americans > 60 (> 60); eGFR For Non-African Americans > 60 (> 60)
[2021-10-04] MEDS: WATER IVC SCH ×2 (01:46→13:47)
[2021-10-04] MEDS: POTASSIUM CHLORIDE IVC SCH ×2 (01:46→13:47)
[2021-10-04] MEDS: D5 IVC SCH ×2 (01:46→13:47)
[2021-10-04] MEDS: SODIUM BICARBONATE IVC SCH ×2 (01:46→13:47)
[2021-10-04 03:56] LABS: BUN/Creatinine Ratio 18 (6-26); Blood Urea Nitrogen 14 mg/dL (6-20); Calcium 7.9 mg/dL (8.6-10.3); Carbon Dioxide 18 mEq/L (23-29); Chloride 102 mEq/L (98-107); Glucose 473 mg/dL (70-105); Osmolality,Calculated 291 (280-300); Potassium 3.4 mEq/L (3.5-5.1); Sodium 130 mEq/L (136-145); eGFR For African Americans > 60 (> 60); eGFR For Non-African Americans > 60 (> 60)
[2021-10-04] MEDS: *HR* Enoxaparin 40 MG/0.4 ML SYRINGE SQ SCH (04:53)
[2021-10-04 05:24] LABS: VBG HCO3 19 mEq/L (21-27); VBG PCO2 35 mmHg (41-51); VBG PH 7.35 pH Units (7.32-7.42); VBG PO2 152 mmHg (25-50)
[2021-10-04 05:33] LABS: Basophils % 0.3 %; Eosinophils % 0.4 %; Hematocrit 31.9 % (35.3-44.9); Immature Granulocytes % 0.3 % (0-4); Lymphocytes # 3.2 K/mcL (0.6-4.6); Lymphocytes % 32.2 %; Mean Corpuscular HGB Conc 34.2 g/dL (31.6-35.5); Mean Corpuscular Hemoglobin 30.1 pg (28.0-33.3); Mean Corpuscular Volume 88.1 fL (83.0-100.0); Mean Platelet Volume 9.7 fL (9.4-12.4); Monocytes # 0.6 K/mcL (0.0-1.3); Monocytes % 5.9 %; Neutrophils # 6.1 K/mcL (1.6-8.9); Platelet Count 293 K/mcL (140-400); Red Blood Count 3.62 M/mcL (3.82-4.97); Red Cell Distribution Width 13.2 % (11.5-14.5); Segmented Neutrophils % 60.9 %
[2021-10-04 05:45] LABS: Hemoglobin 10.9 g/dL (11.5-15.4)
[2021-10-04 05:54] LABS: BUN/Creatinine Ratio 11 (6-26); Blood Urea Nitrogen 9 mg/dL (6-20); Calcium 8.3 mg/dL (8.6-10.3); Carbon Dioxide 19 mEq/L (23-29); Chloride 107 mEq/L (98-107); Glucose 347 mg/dL (70-105); Magnesium 1.8 mg/dL (1.6-2.6); Osmolality,Calculated 298 (280-300); Phosphorous < 1.0 mg/dL (2.7-4.5); Potassium 3.6 mEq/L (3.5-5.1); Sodium 138 mEq/L (136-145); eGFR For African Americans > 60 (> 60); eGFR For Non-African Americans > 60 (> 60)
[2021-10-04] MEDS ORDERED: Potassium Phosphate 44 MEQ in 0.9 % Sodium Chloride 250 ML IVPB ONE (07:32)
[2021-10-04] MEDS: Insulin DETEMIR 100 UNIT/ML X5UNITS SUBQ SCH ×2 (08:43→20:22)
[2021-10-04] MEDS: Sodium Bicarbonate 100 MEQ in 0.45 % Sodium Chloride 1,000 ML IVC SCH ×2 (11:11→18:18)
[2021-10-04] MEDS: Insulin LISPRO 300 UNITS/3 ML VIAL SUBQ SCH ×2 (12:36→16:42)
[2021-10-04 18:58] LABS: BUN/Creatinine Ratio 15 (6-26); Blood Urea Nitrogen 12 mg/dL (6-20); Calcium 7.5 mg/dL (8.6-10.3); Carbon Dioxide 24 mEq/L (23-29); Chloride 105 mEq/L (98-107); Glucose 263 mg/dL (70-105); Osmolality,Calculated 295 (280-300); Phosphorous 3.1 mg/dL (2.7-4.5); Sodium 138 mEq/L (136-145); eGFR For African Americans > 60 (> 60); eGFR For Non-African Americans > 60 (> 60)
[2021-10-05 03:54] LABS: Hematocrit 34.1 % (35.3-44.9); Hemoglobin 11.2 g/dL (11.5-15.4); Mean Corpuscular HGB Conc 32.8 g/dL (31.6-35.5); Mean Corpuscular Hemoglobin 29.6 pg (28.0-33.3); Mean Platelet Volume 9.4 fL (9.4-12.4); Platelet Count 281 K/mcL (140-400); Red Blood Count 3.79 M/mcL (3.82-4.97); Red Cell Distribution Width 13.3 % (11.5-14.5); White Blood Count 6.6 K/mcL (4.3-11.1)
[2021-10-05 04:13] LABS: BUN/Creatinine Ratio 18 (6-26); Blood Urea Nitrogen 15 mg/dL (6-20); Calcium 8.1 mg/dL (8.6-10.3); Carbon Dioxide 23 mEq/L (23-29); Chloride 105 mEq/L (98-107); Glucose 348 mg/dL (70-105); Magnesium 1.9 mg/dL (1.6-2.6); Osmolality,Calculated 301 (280-300); Phosphorous 2.6 mg/dL (2.7-4.5); Potassium 4.2 mEq/L (3.5-5.1); Sodium 138 mEq/L (136-145); eGFR For African Americans > 60 (> 60); eGFR For Non-African Americans > 60 (> 60)
[2021-10-05] MEDS: *HR* Enoxaparin 40 MG/0.4 ML SYRINGE SQ SCH (05:35)
[2021-10-05 07:19] VITALS: BP 105/62; PULSE 88; TEMP 97.7; O2SAT 96
[2021-10-05] MEDS: Insulin LISPRO 300 UNITS/3 ML VIAL SUBQ SCH (08:11)
[2021-10-05] MEDS: Insulin DETEMIR 100 UNIT/ML X5UNITS SUBQ SCH (08:11)
== END 2021-10-05 12:39 | disposition home or self-care (01) | DRG 420 ==
LOC: EMEROOARM 16:00 → 2NNU 16:00 → SUATTDRO 19:29 → 2NNU 20:00 → 3BNU 10-04 13:36
PROVIDERS: ADMIT Internal Medicine; ATTEND Student in an Organized Health Care Education/Training Program

== ENCOUNTER 2021-10-09 06:29 | Inpatient (IN) ==
[2021-10-09] MEDS ORDERED: 0.9 % Sodium Chloride 1,000 ML IVC ONE ×2 (06:39→07:07)
[2021-10-09] MEDS ORDERED: Insulin Human Regular 10 UNIT in 0.9 % Sodium Chloride 10 ML IV ONE (06:49)
[2021-10-09 07:25] LABS: VBG HCO3 4 mEq/L (21-27); VBG PCO2 21 mmHg (41-51); VBG PH 6.86 pH Units (7.32-7.42); VBG PO2 96 mmHg (25-50)
[2021-10-09 07:29] LABS: Nucleated Red Blood Cells 0.1 /100 WBC (0)
[2021-10-09 07:30] LABS: Hematocrit 52.9 % (35.3-44.9); Hemoglobin 14.5 g/dL (11.5-15.4); Mean Corpuscular HGB Conc 27.4 g/dL (31.6-35.5); Mean Corpuscular Hemoglobin 29.5 pg (28.0-33.3); Mean Platelet Volume 9.4 fL (9.4-12.4); Red Blood Count 4.91 M/mcL (3.82-4.97); White Blood Count 26.8 K/mcL (4.3-11.1)
[2021-10-09 07:44] LABS: Bilirubin,Urine Negative (Negative); Blood,Urine Negative (Negative); Clarity,Urine Clear (Clear); Color,Urine Colorless (Yellow); Glucose,Urine (UA) >=1000 mg/dL (Normal); Ketones,Urine >150 mg/dL (Negative); Leukocyte Esterase,Urine Negative (Negative); Mucus,Urine Few per lpf (None-Few); Nitrite,Urine Negative (Negative); PH,Urine 5.5 pH Units (5.0-8.0); Protein,Urine 50 mg/dL (Neg-Trace); RBC,Urine 0-3 per hpf (0-3); Specific Gravity,Urine 1.024 (1.010-1.025); Squamous Epithelial Cell,Urine Few per hpf (None-Few); Urobilinogen,Urine Normal (Normal); WBC,Urine 0-3 per hpf (0-3)
[2021-10-09 07:48] LABS: Amphetamine Screen,Urine Negative ng/mL (Cutoff=1000); Barbiturate Screen,Urine Negative ng/mL (Cutoff=200); Benzodiazepines Screen,Urine Negative ng/mL (Cutoff=200); Cannabinoid Screen,Urine Negative ng/mL (Cutoff = 50); Cocaine Screen,Urine Negative ng/mL (Cutoff= 300); Opiate Screen,Urine Negative ng/mL (Cutoff=300); Phencyclidine Screen,Urine Negative ng/mL (Cutoff=25)
[2021-10-09 07:49] LABS: Alanine Aminotransferase 21 Units/L (7-52); Albumin 4.6 g/dL (3.5-5.7); Albumin/Globulin Ratio 1.4 (1.1-2.2); Alkaline Phosphatase 136 Units/L (34-104); Aspartate Amino Transferase 11 Units/L (13-39); BUN/Creatinine Ratio 12 (6-26); Bilirubin,Total 0.3 mg/dL (0.3-1.0); Blood Urea Nitrogen 21 mg/dL (6-20); Calcium 9.5 mg/dL (8.6-10.3); Carbon Dioxide < 4 mEq/L (23-29); Chloride 87 mEq/L (98-107); Ethanol < 10 mg/dL (Less than 10); Globulin 3.3 g/dL (2.4-3.5); Potassium 5.2 mEq/L (3.5-5.1); Sodium 130 mEq/L (136-145); Total Protein 7.9 g/dL (6.4-8.9); eGFR For African Americans 45 (> 60); eGFR For Non-African Americans 37 (> 60)
[2021-10-09 07:52] LABS: Mean Corpuscular Volume 107.7 fL (83.0-100.0)
[2021-10-09 07:53] LABS: Platelet Count 781 K/mcL (140-400)
[2021-10-09] MEDS ORDERED: Piperacillin/Tazobactam 3.375 GM in 0.9 % Sodium Chloride Mini Bag 100 ML IVPB ONE (08:02)
[2021-10-09] MEDS ORDERED: *HR* Dextrose 50 % in Water (Syg) 50 ML SYRINGE IVP PRN ×2 (08:10→08:30)
[2021-10-09 08:22] LABS: Lymphocytes # 4.8 K/mcL (0.6-4.6); Monocytes # 4.3 K/mcL (0.0-1.3); Neutrophils # 17.7 K/mcL (1.6-8.9); Platelet Estimate Marked Increase (Normal)
[2021-10-09 08:23] LABS: Anisocytosis 1+ (Not Present); Large Platelets Present (Not Present)
[2021-10-09] MEDS ORDERED: Naloxone 0.4 MG/ML INJ IVP PRN (08:30)
[2021-10-09] MEDS ORDERED: Insulin Regular, Human 100 UNIT/ML IV PRN (08:30)
[2021-10-09] MEDS ORDERED: Vancomycin (wt based) 1,000 MG VIAL IVPB SCH (09:00)
[2021-10-09] MEDS: 0.9 % Sodium Chloride w KCl 20 MEQ/1,000 ML MLS IVC SCH ×8 (09:08→22:46)
[2021-10-09 09:11] LABS: Osmolality,Calculated 331 (280-300)
[2021-10-09 09:12] LABS: Glucose 1149 mg/dL (70-105)
[2021-10-09 09:43] LABS: Alanine Aminotransferase 15 Units/L (7-52); Albumin 3.5 g/dL (3.5-5.7); Albumin/Globulin Ratio 1.2 (1.1-2.2); Alkaline Phosphatase 97 Units/L (34-104); Aspartate Amino Transferase 9 Units/L (13-39); BUN/Creatinine Ratio 15 (6-26); Bilirubin,Total 0.2 mg/dL (0.3-1.0); Blood Urea Nitrogen 21 mg/dL (6-20); Calcium 7.8 mg/dL (8.6-10.3); Carbon Dioxide < 4 mEq/L (23-29); Chloride 103 mEq/L (98-107); Glucose 793 mg/dL (70-105); Osmolality,Calculated 324 (280-300); Potassium 4.6 mEq/L (3.5-5.1); Sodium 136 mEq/L (136-145); Total Protein 6.5 g/dL (6.4-8.9); eGFR For African Americans 55 (> 60); eGFR For Non-African Americans 46 (> 60)
[2021-10-09] MEDS ORDERED: Albuterol 2.5 MG/3 ML NEBULIZER IH PRN (09:50)
[2021-10-09] MEDS ORDERED: Ondansetron 4 MG/2 ML VIAL IVP PRN (09:51)
[2021-10-09] MEDS: Pantoprazole 40 MG VIAL IVP SCH ×2 (10:22→16:11)
[2021-10-09 11:44] LABS: BUN/Creatinine Ratio 16 (6-26); Blood Urea Nitrogen 20 mg/dL (6-20); Calcium 7.8 mg/dL (8.6-10.3); Chloride 107 mEq/L (98-107); Glucose 669 mg/dL (70-105); Lipase 103 Units/L (11-82); Magnesium 1.9 mg/dL (1.6-2.6); Osmolality,Calculated 320 (280-300); Phosphorous 3.6 mg/dL (2.7-4.5); Potassium 4.3 mEq/L (3.5-5.1); Sodium 138 mEq/L (136-145); eGFR For African Americans > 60 (> 60); eGFR For Non-African Americans 55 (> 60)
[2021-10-09 11:45] LABS: Carbon Dioxide < 4 mEq/L (23-29)
[2021-10-09 12:21] LABS: VBG HCO3 5 mEq/L (21-27); VBG PCO2 15 mmHg (41-51); VBG PH 7.12 pH Units (7.32-7.42); VBG PO2 77 mmHg (25-50)
[2021-10-09 14:12] LABS: VBG Ionized Calcium 1.17 mmol/L (1.15-1.35); VBG PH 7.19 pH Units (7.32-7.42)
[2021-10-09 14:25] LABS: BUN/Creatinine Ratio 14 (6-26); Blood Urea Nitrogen 13 mg/dL (6-20); Calcium 8.3 mg/dL (8.6-10.3); Carbon Dioxide 7 mEq/L (23-29); Chloride 115 mEq/L (98-107); Glucose 314 mg/dL (70-105); Magnesium 1.7 mg/dL (1.6-2.6); Osmolality,Calculated 302 (280-300); Phosphorous < 1.0 mg/dL (2.7-4.5); Potassium 4.3 mEq/L (3.5-5.1); Sodium 140 mEq/L (136-145); eGFR For African Americans > 60 (> 60); eGFR For Non-African Americans > 60 (> 60)
[2021-10-09] MEDS ORDERED: Calcium Gluconate 1gm/50mL 1 GM/50 ML BAG IVPB PRN (14:26)
[2021-10-09] MEDS: Piperacillin/Tazobactam 3.375 GM in 0.9 % Sodium Chloride Mini Bag 100 ML IVPB SCH ×2 (15:25→23:03)
[2021-10-09] MEDS: *HR* Heparin 5,000 UNIT/ML VIAL SQ SCH (16:11)
[2021-10-09] MEDS: D5% in 0.45% NACL w KCl 20 MEQ/1,000 ML MLS IVC PRN ×2 (17:59→21:52)
[2021-10-09 18:33] LABS: BUN/Creatinine Ratio 13 (6-26); Blood Urea Nitrogen 10 mg/dL (6-20); Calcium 7.4 mg/dL (8.6-10.3); Carbon Dioxide 11 mEq/L (23-29); Chloride 118 mEq/L (98-107); Glucose 194 mg/dL (70-105); Osmolality,Calculated 298 (280-300); Phosphorous 1.8 mg/dL (2.7-4.5); Potassium 3.9 mEq/L (3.5-5.1); Sodium 142 mEq/L (136-145); eGFR For African Americans > 60 (> 60); eGFR For Non-African Americans > 60 (> 60)
[2021-10-09 22:31] LABS: BUN/Creatinine Ratio 12 (6-26); Blood Urea Nitrogen 8 mg/dL (6-20); Calcium 7.1 mg/dL (8.6-10.3); Carbon Dioxide 15 mEq/L (23-29); Chloride 116 mEq/L (98-107); Glucose 147 mg/dL (70-105); Osmolality,Calculated 287 (280-300); Sodium 138 mEq/L (136-145); eGFR For African Americans > 60 (> 60); eGFR For Non-African Americans > 60 (> 60)
[2021-10-10] MEDS: D5% in 0.45% NACL w KCl 20 MEQ/1,000 ML MLS IVC PRN ×2 (01:56→06:09)
[2021-10-10 02:54] LABS: Alanine Aminotransferase 11 Units/L (7-52); Albumin/Globulin Ratio 1.4 (1.1-2.2); Alkaline Phosphatase 65 Units/L (34-104); Aspartate Amino Transferase 8 Units/L (13-39); BUN/Creatinine Ratio 11 (6-26); Bilirubin,Indirect 0.3 mg/dL (0.0-1.0); Bilirubin,Total 0.3 mg/dL (0.3-1.0); Blood Urea Nitrogen 7 mg/dL (6-20); Calcium 7.3 mg/dL (8.6-10.3); Carbon Dioxide 16 mEq/L (23-29); Chloride 117 mEq/L (98-107); Globulin 2.2 g/dL (2.4-3.5); Glucose 104 mg/dL (70-105); Magnesium 1.3 mg/dL (1.6-2.6); Osmolality,Calculated 286 (280-300); Sodium 139 mEq/L (136-145); Total Protein 5.2 g/dL (6.4-8.9); eGFR For African Americans > 60 (> 60); eGFR For Non-African Americans > 60 (> 60)
[2021-10-10 03:50] LABS: Basophils % 0.2 %; Eosinophils % 0.3 %; Hematocrit 30.1 % (35.3-44.9); Immature Granulocytes % 1.3 % (0-4); Lymphocytes # 1.8 K/mcL (0.6-4.6); Lymphocytes % 12.2 %; Mean Corpuscular HGB Conc 33.9 g/dL (31.6-35.5); Mean Corpuscular Hemoglobin 29.9 pg (28.0-33.3); Mean Platelet Volume 8.8 fL (9.4-12.4); Monocytes # 1.7 K/mcL (0.0-1.3); Monocytes % 11.5 %; Neutrophils # 11.1 K/mcL (1.6-8.9); Platelet Count 325 K/mcL (140-400); Red Blood Count 3.41 M/mcL (3.82-4.97); Red Cell Distribution Width 12.9 % (11.5-14.5); Segmented Neutrophils % 74.5 %
[2021-10-10 03:51] LABS: Hemoglobin 10.2 g/dL (11.5-15.4); Mean Corpuscular Volume 88.3 fL (83.0-100.0)
[2021-10-10] MEDS: *HR* Heparin 5,000 UNIT/ML VIAL SQ SCH ×2 (05:00→18:02)
[2021-10-10] MEDS: Pantoprazole 40 MG VIAL IVP SCH (05:00)
[2021-10-10 06:49] LABS: BUN/Creatinine Ratio 8 (6-26); Blood Urea Nitrogen 5 mg/dL (6-20); Calcium 6.9 mg/dL (8.6-10.3); Carbon Dioxide 17 mEq/L (23-29); Chloride 114 mEq/L (98-107); Glucose 131 mg/dL (70-105); Osmolality,Calculated 279 (280-300); Potassium 3.6 mEq/L (3.5-5.1); Sodium 135 mEq/L (136-145); eGFR For African Americans > 60 (> 60); eGFR For Non-African Americans > 60 (> 60)
[2021-10-10] MEDS: Piperacillin/Tazobactam 3.375 GM in 0.9 % Sodium Chloride Mini Bag 100 ML IVPB SCH ×3 (07:02→23:06)
[2021-10-10 07:28] LABS: VBG HCO3 17 mEq/L (21-27); VBG PCO2 32 mmHg (41-51); VBG PH 7.32 pH Units (7.32-7.42); VBG PO2 118 mmHg (25-50)
[2021-10-10] MEDS ORDERED: Dextrose Gel 15 GM/37.5 ML TUBE PO PRN ×2 (07:40)
[2021-10-10] MEDS ORDERED: D5% in Water 1,000 ML IVC PRN (07:40)
[2021-10-10] MEDS: Ringers Solution, Lactated 1,000 ML IVC SCH ×2 (07:58→16:03)
[2021-10-10] MEDS: Insulin DETEMIR 100 UNIT/ML X5UNITS SUBQ SCH ×2 (08:26→21:35)
[2021-10-10] MEDS: Insulin LISPRO 300 UNITS/3 ML VIAL SUBQ SCH ×2 (11:36→16:13)
[2021-10-10 12:22] LABS: VBG Ionized Calcium 1.14 mmol/L (1.15-1.35)
[2021-10-10 12:51] LABS: BUN/Creatinine Ratio 7 (6-26); Blood Urea Nitrogen 4 mg/dL (6-20); Calcium 7.8 mg/dL (8.6-10.3); Carbon Dioxide 15 mEq/L (23-29); Chloride 115 mEq/L (98-107); Glucose 148 mg/dL (70-105); Magnesium 1.7 mg/dL (1.6-2.6); Osmolality,Calculated 286 (280-300); Phosphorous 2.4 mg/dL (2.7-4.5); Potassium 3.8 mEq/L (3.5-5.1); Sodium 138 mEq/L (136-145); eGFR For African Americans > 60 (> 60); eGFR For Non-African Americans > 60 (> 60)
[2021-10-10] MEDS ORDERED: Insulin LISPRO 300 UNITS/3 ML VIAL SUBQ SCH (21:00)
[2021-10-11 04:24] LABS: Basophils % 0.3 %; Eosinophils # 0.1 K/mcL (0.0-0.6); Eosinophils % 1.6 %; Hematocrit 28.7 % (35.3-44.9); Hemoglobin 9.7 g/dL (11.5-15.4); Lymphocytes # 2.9 K/mcL (0.6-4.6); Mean Corpuscular HGB Conc 33.8 g/dL (31.6-35.5); Mean Corpuscular Hemoglobin 30.3 pg (28.0-33.3); Mean Corpuscular Volume 89.7 fL (83.0-100.0); Monocytes # 0.6 K/mcL (0.0-1.3); Monocytes % 7.9 %; Neutrophils # 3.6 K/mcL (1.6-8.9); Platelet Count 257 K/mcL (140-400); Red Cell Distribution Width 13.3 % (11.5-14.5); Segmented Neutrophils % 49.2 %; White Blood Count 7.3 K/mcL (4.3-11.1)
[2021-10-11 04:42] LABS: BUN/Creatinine Ratio 6 (6-26); Blood Urea Nitrogen 4 mg/dL (6-20); Calcium 7.8 mg/dL (8.6-10.3); Carbon Dioxide 19 mEq/L (23-29); Chloride 110 mEq/L (98-107); Glucose 154 mg/dL (70-105); Osmolality,Calculated 286 (280-300); Potassium 3.3 mEq/L (3.5-5.1); Sodium 138 mEq/L (136-145); eGFR For African Americans > 60 (> 60); eGFR For Non-African Americans > 60 (> 60)
[2021-10-11] MEDS: *HR* Heparin 5,000 UNIT/ML VIAL SQ SCH (05:38)
[2021-10-11] MEDS ORDERED: Pantoprazole 40 MG VIAL IVP SCH (09:00)
[2021-10-11] MEDS: Insulin LISPRO 300 UNITS/3 ML VIAL SUBQ SCH ×2 (09:18→13:12)
[2021-10-11] MEDS: Insulin DETEMIR 100 UNIT/ML X5UNITS SUBQ SCH (09:19)
[2021-10-11] MEDS: Piperacillin/Tazobactam 3.375 GM in 0.9 % Sodium Chloride Mini Bag 100 ML IVPB SCH (09:19)
[2021-10-11 12:26] VITALS: BP 114/70; PULSE 80; TEMP 98; O2SAT 100
== END 2021-10-11 15:36 | disposition home or self-care (01) | DRG 420 ==
LOC: ICNU 06:29 → EMEROOARM 06:29 → ICNU 10:07 → 3NENU 10-10 11:09
PROVIDERS: ADMIT Pediatrics; ATTEND Pediatrics

== ENCOUNTER 2021-12-17 13:58 | Observation (INO) ==
[2021-12-17] MEDS ORDERED: 0.9 % Sodium Chloride 1,000 ML IVC ONE ×2 (14:11→17:00)
[2021-12-17] MEDS ORDERED: *HR* LORazepam 2 MG/ML VIAL IM ONE (14:53)
[2021-12-17 16:14] LABS: Basophils # 0.1 K/mcL (0.0-0.2); Basophils % 0.4 %; Eosinophils % 0.1 %; Hemoglobin 15.1 g/dL (11.5-15.4); Immature Granulocytes % 0.9 % (0-4); Lymphocytes # 1.4 K/mcL (0.6-4.6); Lymphocytes % 7.6 %; Mean Corpuscular HGB Conc 32.1 g/dL (31.6-35.5); Mean Corpuscular Hemoglobin 28.6 pg (28.0-33.3); Mean Platelet Volume 9.3 fL (9.4-12.4); Monocytes # 1.2 K/mcL (0.0-1.3); Monocytes % 6.4 %; Neutrophils # 15.3 K/mcL (1.6-8.9); Platelet Count 627 K/mcL (140-400); Red Blood Count 5.28 M/mcL (3.82-4.97); Red Cell Distribution Width 12.1 % (11.5-14.5); Segmented Neutrophils % 84.6 %; White Blood Count 18.1 K/mcL (4.3-11.1)
[2021-12-17 16:15] LABS: VBG HCO3 12 mEq/L (21-27); VBG PCO2 29 mmHg (41-51); VBG PH 7.21 pH Units (7.32-7.42); VBG PO2 76 mmHg (25-50)
[2021-12-17 16:53] LABS: Alanine Aminotransferase 14 Units/L (7-52); Albumin 4.9 g/dL (3.5-5.7); Albumin/Globulin Ratio 1.2 (1.1-2.2); Alkaline Phosphatase 108 Units/L (34-104); Aspartate Amino Transferase 8 Units/L (13-39); BUN/Creatinine Ratio 14 (6-26); Bilirubin,Total 0.3 mg/dL (0.3-1.0); Blood Urea Nitrogen 18 mg/dL (6-20); Calcium 10.5 mg/dL (8.6-10.3); Carbon Dioxide 10 mEq/L (23-29); Chloride 97 mEq/L (98-107); Globulin 4.1 g/dL (2.4-3.5); Glucose 475 mg/dL (70-105); Magnesium 2.4 mg/dL (1.6-2.6); Osmolality,Calculated 297 (280-300); Potassium 4.8 mEq/L (3.5-5.1); Sodium 132 mEq/L (136-145); Troponin I < 0.03 ng/mL (< 0.04)
[2021-12-17] MEDS ORDERED: *HR* Dextrose 50 % in Water (Syg) 50 ML SYRINGE IVP PRN ×2 (16:59→17:37)
[2021-12-17] MEDS ORDERED: 0.45 % Sodium Chloride w/KCl 20 MEQ/1,000 ML MLS IVC SCH (17:00)
[2021-12-17] MEDS ORDERED: Insulin Regular, Human 100 UNIT/ML IV PRN ×2 (17:37)
[2021-12-17] MEDS ORDERED: Ondansetron 4 MG/2 ML VIAL IVP PRN (17:37)
[2021-12-17] MEDS ORDERED: Naloxone 0.4 MG/ML INJ IVP PRN (17:37)
[2021-12-17] MEDS ORDERED: Acetaminophen 325 MG TABLET PO PRN (17:37)
[2021-12-17] MEDS ORDERED: D5% in 0.45% NACL 1,000 ML IVC PRN (17:37)
[2021-12-17] MEDS: 0.9 % Sodium Chloride w KCl 20 MEQ/1,000 ML MLS IVC SCH (19:06)
[2021-12-17 20:33] LABS: BUN/Creatinine Ratio 20 (6-26); Blood Urea Nitrogen 16 mg/dL (6-20); Blood Urea Nitrogen 17 mg/dL (6-20); Calcium 9.2 mg/dL (8.6-10.3); Carbon Dioxide 16 mEq/L (23-29); Chloride 110 mEq/L (98-107); Glucose 135 mg/dL (70-105); Glucose 137 mg/dL (70-105); Osmolality,Calculated 289 (280-300); Osmolality,Calculated 290 (280-300); Phosphorous 2.4 mg/dL (2.7-4.5); Phosphorous 2.5 mg/dL (2.7-4.5); Potassium 4.1 mEq/L (3.5-5.1); Sodium 138 mEq/L (136-145)
[2021-12-17 20:40] LABS: Bilirubin,Urine Small (Negative); Blood,Urine Small (Negative); Clarity,Urine Clear (Clear); Color,Urine Colorless (Yellow); Glucose,Urine (UA) >=1000 mg/dL (Normal); Ketones,Urine >150 mg/dL (Negative); Leukocyte Esterase,Urine Negative (Negative); Mucus,Urine Few per lpf (None-Few); Nitrite,Urine Negative (Negative); PH,Urine 5.5 pH Units (5.0-8.0); Protein,Urine 30 mg/dL (Neg-Trace); RBC,Urine 0-3 per hpf (0-3); Specific Gravity,Urine 1.027 (1.010-1.025); Squamous Epithelial Cell,Urine Few per hpf (None-Few); WBC,Urine 0-3 per hpf (0-3)
[2021-12-17] MEDS: D5% in 0.45% NACL w KCl 20 MEQ/1,000 ML MLS IVC PRN (21:17)
[2021-12-18 00:39] LABS: VBG HCO3 18 mEq/L (21-27); VBG PCO2 33 mmHg (41-51); VBG PH 7.35 pH Units (7.32-7.42); VBG PO2 199 mmHg (25-50)
[2021-12-18 00:53] LABS: BUN/Creatinine Ratio 21 (6-26); Blood Urea Nitrogen 14 mg/dL (6-20); Calcium 8.2 mg/dL (8.6-10.3); Carbon Dioxide 17 mEq/L (23-29); Chloride 107 mEq/L (98-107); Glucose 271 mg/dL (70-105); Osmolality,Calculated 288 (280-300); Potassium 4.3 mEq/L (3.5-5.1); Sodium 134 mEq/L (136-145)
[2021-12-18] MEDS: D5% in 0.45% NACL w KCl 20 MEQ/1,000 ML MLS IVC PRN ×2 (01:09→18:35)
[2021-12-18] MEDS: 0.9 % Sodium Chloride 1,000 ML IVC SCH ×18 (04:26→13:23)
[2021-12-18] MEDS: 0.45 % Sodium Chloride w/KCl 20 MEQ/1,000 ML MLS IVC SCH ×17 (04:27→06:58)
[2021-12-18] MEDS: 0.9 % Sodium Chloride w KCl 20 MEQ/1,000 ML MLS IVC SCH ×16 (04:27→06:57)
[2021-12-18 04:34] LABS: VBG HCO3 19 mEq/L (21-27); VBG PCO2 35 mmHg (41-51); VBG PH 7.35 pH Units (7.32-7.42); VBG PO2 184 mmHg (25-50)
[2021-12-18 04:52] LABS: Albumin 3.4 g/dL (3.5-5.7); BUN/Creatinine Ratio 19 (6-26); Blood Urea Nitrogen 12 mg/dL (6-20); Calcium 8.4 mg/dL (8.6-10.3); Carbon Dioxide 19 mEq/L (23-29); Chloride 110 mEq/L (98-107); Glucose 162 mg/dL (70-105); Osmolality,Calculated 285 (280-300); Potassium 3.8 mEq/L (3.5-5.1); Sodium 136 mEq/L (136-145)
[2021-12-18] MEDS ORDERED: Insulin DETEMIR 100 UNIT/ML X5UNITS SUBQ ONE (05:45)
[2021-12-18] MEDS ORDERED: D5% in Water 1,000 ML IVC PRN (05:45)
[2021-12-18] MEDS ORDERED: Dextrose Gel 15 GM/37.5 ML TUBE PO PRN ×2 (05:45)
[2021-12-18 08:26] LABS: VBG HCO3 19 mEq/L (21-27); VBG PCO2 35 mmHg (41-51); VBG PH 7.34 pH Units (7.32-7.42); VBG PO2 154 mmHg (25-50)
[2021-12-18 08:30] LABS: BUN/Creatinine Ratio 18 (6-26); Blood Urea Nitrogen 12 mg/dL (6-20); Calcium 8.4 mg/dL (8.6-10.3); Carbon Dioxide 19 mEq/L (23-29); Chloride 107 mEq/L (98-107); Glucose 236 mg/dL (70-105); Osmolality,Calculated 285 (280-300); Sodium 134 mEq/L (136-145)
[2021-12-18] MEDS: Insulin LISPRO 300 UNITS/3 ML VIAL SUBQ SCH ×3 (11:31→17:22)
[2021-12-18 14:00] LABS: VBG Base Excess -9 mEq/L; VBG Chloride 107 mEq/L (98-107); VBG Glucose 284 mg/dl (65-95); VBG HCO3 16 mEq/L (21-27); VBG Ionized Calcium 1.13 mmol/L (1.15-1.35); VBG Oxygen Saturation 100 %; VBG PCO2 32 mmHg (41-51); VBG PH 7.32 pH Units (7.32-7.42); VBG PO2 182 mmHg (25-50); VBG Total CO2 17 mEq/L
[2021-12-18 14:11] LABS: BUN/Creatinine Ratio 18 (6-26); Blood Urea Nitrogen 13 mg/dL (6-20); Carbon Dioxide 15 mEq/L (23-29); Chloride 107 mEq/L (98-107); Glucose 312 mg/dL (70-105); Potassium 3.4 mEq/L (3.5-5.1); Sodium 135 mEq/L (136-145)
[2021-12-18 14:12] LABS: Osmolality,Calculated 292 (280-300)
[2021-12-18] MEDS ORDERED: D5% in 0.45% NACL w KCl 20 MEQ/1,000 ML MLS IVC PRN (15:12)
[2021-12-18] MEDS ORDERED: *HR* Dextrose 50 % in Water (Syg) 50 ML SYRINGE IVP PRN (15:12)
[2021-12-18] MEDS ORDERED: Insulin Regular, Human 100 UNIT/ML IV PRN ×2 (15:12)
[2021-12-18] MEDS ORDERED: 0.9 % Sodium Chloride w KCl 20 MEQ/1,000 ML MLS IVC SCH (15:15)
[2021-12-18] MEDS ORDERED: Insulin LISPRO 300 UNITS/3 ML VIAL SUBQ SCH (21:00)
[2021-12-18 21:09] LABS: BUN/Creatinine Ratio 16 (6-26); Blood Urea Nitrogen 9 mg/dL (6-20); Calcium 8.4 mg/dL (8.6-10.3); Carbon Dioxide 22 mEq/L (23-29); Chloride 113 mEq/L (98-107); Glucose 94 mg/dL (70-105); Osmolality,Calculated 288 (280-300); Potassium 3.7 mEq/L (3.5-5.1); Sodium 140 mEq/L (136-145)
[2021-12-19 04:51] LABS: Mean Corpuscular HGB Conc 32.3 g/dL (31.6-35.5); Mean Corpuscular Hemoglobin 28.4 pg (28.0-33.3); Mean Corpuscular Volume 87.9 fL (83.0-100.0); Mean Platelet Volume 9.2 fL (9.4-12.4); Platelet Count 359 K/mcL (140-400); Red Blood Count 3.98 M/mcL (3.82-4.97); Red Cell Distribution Width 12.2 % (11.5-14.5)
[2021-12-19 04:53] LABS: Hemoglobin 11.3 g/dL (11.5-15.4); White Blood Count 7.9 K/mcL (4.3-11.1)
[2021-12-19 05:09] LABS: BUN/Creatinine Ratio 16 (6-26); Blood Urea Nitrogen 9 mg/dL (6-20); Calcium 8.4 mg/dL (8.6-10.3); Carbon Dioxide 22 mEq/L (23-29); Chloride 108 mEq/L (98-107); Glucose 168 mg/dL (70-105); Osmolality,Calculated 289 (280-300); Potassium 3.9 mEq/L (3.5-5.1); Sodium 138 mEq/L (136-145)
[2021-12-19] MEDS ORDERED: D5% in Water 1,000 ML IVC PRN (06:01)
[2021-12-19] MEDS ORDERED: Insulin DETEMIR 100 UNIT/ML X5UNITS SUBQ ONE (06:07)
[2021-12-19] MEDS ORDERED: Insulin LISPRO 300 UNITS/3 ML VIAL SUBQ SCH ×2 (07:30→21:00)
[2021-12-19] MEDS: Insulin LISPRO 300 UNITS/3 ML VIAL SUBQ SCH (08:15)
[2021-12-19 11:19] VITALS: BP 137/72; PULSE 133; TEMP 98.1; O2SAT 97
== END 2021-12-19 12:00 | disposition home or self-care (01) ==
LOC: EMEROOARM 13:58 → 2NNU 13:58 → SUATTDRO 17:52 → 2NNU 17:54
PROVIDERS: ADMIT Student in an Organized Health Care Education/Training Program; ATTEND Internal Medicine

== ENCOUNTER 2022-02-05 09:02 | Inpatient (IN) ==
[2022-02-05 09:23] VITALS: TEMP 97.7
[2022-02-05 09:42] LABS: Bilirubin,Urine Negative (Negative); Blood,Urine Negative (Negative); Clarity,Urine Clear (Clear); Color,Urine Colorless (Yellow); Glucose,Urine (UA) >=1000 mg/dL (Normal); Ketones,Urine >150 mg/dL (Negative); Leukocyte Esterase,Urine Negative (Negative); Mucus,Urine Few per lpf (None-Few); Nitrite,Urine Negative (Negative); PH,Urine 5.5 pH Units (5.0-8.0); Protein,Urine 100 mg/dL (Neg-Trace); RBC,Urine 0-3 per hpf (0-3); Specific Gravity,Urine 1.027 (1.010-1.025); Squamous Epithelial Cell,Urine Few per hpf (None-Few); Urobilinogen,Urine Normal (Normal)
[2022-02-05] MEDS: 0.9 % Sodium Chloride 1,000 ML IVC SCH ×2 (10:46→12:00)
[2022-02-05 10:49] LABS: Basophils # 0.1 K/mcL (0.0-0.2); Basophils % 0.7 %; Eosinophils % 0.1 %; Hematocrit 47.7 % (35.3-44.9); Immature Granulocytes % 0.9 % (0-4); Lymphocytes # 2.3 K/mcL (0.6-4.6); Lymphocytes % 12.1 %; Mean Corpuscular HGB Conc 31.4 g/dL (31.6-35.5); Mean Corpuscular Hemoglobin 28.2 pg (28.0-33.3); Mean Corpuscular Volume 89.7 fL (83.0-100.0); Mean Platelet Volume 10.3 fL (9.4-12.4); Monocytes # 0.9 K/mcL (0.0-1.3); Monocytes % 5.1 %; Neutrophils # 15.1 K/mcL (1.6-8.9); Platelet Count 613 K/mcL (140-400); Red Blood Count 5.32 M/mcL (3.82-4.97); Red Cell Distribution Width 13.1 % (11.5-14.5); Segmented Neutrophils % 81.1 %; White Blood Count 18.6 K/mcL (4.3-11.1)
[2022-02-05 10:58] LABS: VBG HCO3 6 mEq/L (21-27); VBG PCO2 24 mmHg (41-51); VBG PH 6.97 pH Units (7.32-7.42); VBG PO2 84 mmHg (25-50)
[2022-02-05 11:35] LABS: Calcium 9.1 mg/dL (8.6-10.3); Phosphorous 5.4 mg/dL (2.7-4.5)
[2022-02-05] MEDS ORDERED: Ringers Solution, Lactated 1,000 ML IVC ONE (12:03)
[2022-02-05] MEDS ORDERED: Ondansetron 4 MG/2 ML VIAL IVP ONE (12:04)
[2022-02-05] MEDS ORDERED: 0.9 % Sodium Chloride 1,000 ML IVC ONE (12:57)
[2022-02-05 14:57] LABS: Bacteria,Urine Few per hpf (None-Few); Bilirubin,Urine Negative (Negative); Blood,Urine Trace (Negative); Clarity,Urine Clear (Clear); Color,Urine Colorless (Yellow); Glucose,Urine (UA) >=1000 mg/dL (Normal); Ketones,Urine >150 mg/dL (Negative); Leukocyte Esterase,Urine Negative (Negative); Mucus,Urine Few per lpf (None-Few); Nitrite,Urine Negative (Negative); PH,Urine 5.5 pH Units (5.0-8.0); Protein,Urine 70 mg/dL (Neg-Trace); RBC,Urine 0-3 per hpf (0-3); Specific Gravity,Urine 1.016 (1.010-1.025); Squamous Epithelial Cell,Urine Moderate per hpf (None-Few); Urobilinogen,Urine Normal (Normal); WBC,Urine 0-3 per hpf (0-3)
[2022-02-05] MEDS ORDERED: Insulin Regular, Human 100 UNIT/ML IV PRN (15:21)
[2022-02-05] MEDS ORDERED: *HR* Dextrose 50 % in Water (Syg) 50 ML SYRINGE IVP PRN (15:21)
[2022-02-05] MEDS ORDERED: Sodium Bicarbonate 75 MEQ in 0.45 % Sodium Chloride 1,000 ML IVC SCH (15:30)
[2022-02-05 15:34] LABS: VBG HCO3 4 mEq/L (21-27); VBG PCO2 24 mmHg (41-51); VBG PO2 124 mmHg (25-50)
[2022-02-05] MEDS ORDERED: Naloxone 0.4 MG/ML INJ IVP PRN ×2 (15:49→15:50)
[2022-02-05] MEDS ORDERED: Melatonin 3 MG TABLET PO PRN (15:50)
[2022-02-05] MEDS ORDERED: Acetaminophen 325 MG TABLET PO PRN (15:50)
[2022-02-05] MEDS ORDERED: MOM Conc 10 ML UD.LIQ PO PRN (15:50)
[2022-02-05] MEDS ORDERED: WATER FOR INJ IVC SCH ×4 (15:58→17:15)
[2022-02-05] MEDS ORDERED: SODIUM BICARBONATE IVC SCH ×4 (15:58→17:15)
[2022-02-05] MEDS ORDERED: 0.45 % Sodium Chloride w/KCl 20 MEQ/1,000 ML MLS IVC SCH (16:00)
[2022-02-05 16:08] LABS: BUN/Creatinine Ratio 8 (6-26); Blood Urea Nitrogen 7 mg/dL (6-20); Calcium 7.6 mg/dL (8.6-10.3); Carbon Dioxide 5 mEq/L (23-29); Chloride 112 mEq/L (98-107); Glucose 253 mg/dL (70-105); Osmolality,Calculated 295 (280-300); Potassium 4.1 mEq/L (3.5-5.1); Sodium 139 mEq/L (136-145)
[2022-02-05] MEDS ORDERED: Levalbuterol 1 PUFF INHALER IH PRN (17:05)
[2022-02-05 19:37] VITALS: O2SAT 100
[2022-02-05] MEDS ORDERED: Metoprolol XL (24 HR) Succ 25 MG TAB.ER.24H PO SCH (21:00)
[2022-02-05 21:22] VITALS: BP 116/57; PULSE 129
[2022-02-05] MEDS ORDERED: Levalbuterol 1 PUFF INHALER IH SCH (22:00)
== END 2022-02-05 23:59 | disposition other institution (70) | DRG 420 ==
LOC: EMEROOARM 09:02 → 2NNU 16:00
PROVIDERS: ADMIT Internal Medicine; ATTEND Internal Medicine